=== PATIENT | female | born 1950 | race Caucasian/White ===

== ENCOUNTER 2019-06-06 20:47 | Inpatient (IN) | payer MEDICARE, SELFPAY ==
[2019-06-06] VITALS (7 sets, daily range): BP systolic 115–127; BP diastolic 66–72; PULSE 90–109; RESP 22–31; TEMP 36.7; O2SAT 93–100
--- NOTE | ~2019-06-06 | CT_ITS ---
EXAMINATION: CT chest wo con DATE: 06/07/2019 14:15 INDICATION: Hypoxemia, shortness of breath, cough TECHNIQUE: Computed tomography (CT) of the chest was performed without intravenous contrast. The dose -length product (DLP) was 145.72 mGy-cm. Automated exposure control and iterative reconstruction tech nique were employed. COMPARISON: None FINDINGS: There is moderate emphysema. There are mild airspace opacities of the lower lobes, left upp er lobe, and right middle lobe. There are trace pleural effusions. No pneumothorax is identified. Terence cified pulmonary nodules and calcified right hilar lymph nodes are consistent with old granulomatous disease. The heart size is normal. Spleen measuring IMPRESSION: 1. Mild multifocal pneumonia. 2. Moderate emphysema. Reviewed, dictated and finalized at location B.
--- NOTE | ~2019-06-06 | XR_ITS ---
EXAMINATION: XR chest 2V DATE: 06/06/2019 21:50 INDICATION: Shortness of breath TECHNIQUE: frontal and lateral views of the chest were obtained. COMPARISON: Chest radiograph dated 03/07/2008 FINDINGS: Hyperexpansion of lungs with increased lucency in the upper lung zones and some architectural distort ion on the right consistent with emphysema. Mild bronchial wall thickening in the lower lung zones co nsistent with bronchitis. Mild opacities at the posterior sulci consistent with dependent atelectasis versus pneumonia. Densely calcified nodules in the right upper lobe and calcified mediastinal lymph nodes consistent with old granulomatous disease. Heart size is normal. IMPRESSION: 1. Emphysema. 2. bronchial wall thickening and/or lung zones consistent with bronchitis. 3. Mild opacities at the posterior sulci on the lateral projection most likely atelectasis although p neumonia not excludable. Reviewed, dictated and finalized at location A. IMPRESSION: 1. Emphysema. 2. bronchial wall thickening and/or lung zones consistent with bronchitis. 3. Mild opacities at the posterior sulci on the lateral projection most likely atelectasis although pneumonia not excludable.
--- NOTE | 2019-06-06 20:52 | ED.SOB ---
HPI - SOB/Dyspnea General Chief Complaint: Shortness of Breath/Dyspnea Stated Complaint: SOB/ DIARRHEA Time Seen by Provider: 06/06/19 20:48 Source: patient and RN notes reviewed Mode of arrival: EMS Limitations: no limitations History of Present Illness HPI Narrative: Pt is a 68 y/o female presenting to the ED c/o SOB. Pt reports she was prescribed Azithromycin last Friday and Prednisone last due to being diagnosed with COPD. Pt states she was experiencing SOB and cough, noting her Sx's improved last Friday and Friday but worsened this morning. Pt states she was satting 88% at her home earlier today which changed to 90% after taking an Albuterol Nebulizer. Pt also reports diarrhea, but denies fever. Pt states she has been taking Mucinex. Pt denies any known positive sick contact. Pt denies any other medical Hx's including cardiac problems. Pertinent past history: COPD Onset (ago): unknown Associated symptoms: cough and other (Diarrhea) Related Data Allergies Allergy/AdvReac Type Severity Reaction Status Date / Time No Known Allergies Allergy Unverified 11/22/15 18:49 Review of Systems Review of Systems: All systems reviewed & are unremarkable except as noted in HPI and below Constitutional: Constitutional: Denies fever(s) Respiratory: Respiratory: Reports cough and Reports dyspnea Gastrointestinal: Gastrointestinal: Reports diarrhea PMFSH Past Medical History Medical History COPD (chronic obstructive pulmonary disease) Skin cancer Surgical History Surgical History No significant past surgical history Family History Family History Father Family history of blood dyscrasia Family history of malignant neoplasm, Onset Age: 63 Patient's father is Sibling Asthma Patient's sister is in good health Family history of attention deficit hyperactivity disorder (ADHD) Family history of malignant neoplasm of breast in first degree relative Mother Family history of emphysema, Onset Age: 72 Patient's mother is Social History Social History Alcohol intake: current Exam Const: General: no acute distress Nutritional Appearance: well nourished Other: Frail; Elderly HENMT: Mouth: Yes lip normal and Yes dry mucous membranes Eyes: Conjunctivae: conjunctivae normal Resp: Effort & Inspection: normal respiratory effort Auscultation: wheezes and diminished lung sounds Cardio: Rate: regular rate Rhythm: regular rhythm Back/Spine/Pelvis: Other: Full ROM Skin: General skin exam: normal color Other: Warm; Dry Neuro: General: patient oriented x3 Speech: normal speech Extrem: General: full ROM Psych: Mental Status: mental status grossly normal Affect: normal affect Course Vital Signs Vital signs: Vital Signs Temperature 36.7 C 06/06/19 20:51 Pulse Rate 90 06/06/19 20:51 Respiratory Rate 27 H 06/06/19 20:51 Blood Pressure 115/66 06/06/19 20:51 Pulse Oximetry 95 06/06/19 20:51 Temperature 36.7 C 06/06/19 20:51 Pulse Rate 109 H 06/06/19 22:16 Respiratory Rate 26 H 06/06/19 22:16 Blood Pressure 127/72 06/06/19 22:16 Pulse Oximetry 93 06/06/19 22:16 MDM - SOB/Dyspnea MDM Narrative Medical decision making narrative: She has a new supplemental oxygen requirement and only minimal improvement with nebulizer treatment. She will need admission for scheduled nebs and IV steroids. No infiltrate on x-ray. WBC elevation likely due to corticosteroids will hold off on antibiotics for now. Differential Diagnosis Differential diagnosis: Likely acute exacerbation of chronic obstructive airways disease, community acquired pneumonia and other (influenza, acute on chronic respiratory failure) Medical Records Attestation: I reviewed the patient's medical records
--- NOTE | 2019-06-06 20:59 | ECG_ITS ---
Measurements Intervals [place] Rate: 89 P: 81 [place]: 128 QRS: 93 QRSD: 105 T: 84 QT: 387 QTc: 473 Interpretive Statements SINUS RHYTHM VENTRICULAR PREMATURE COMPLEX RIGHT AXIS DEVIATION BASELINE ARTIFACT- I, II, III, AVR, AVL, AVF, V1-V6 BORDERLINE ECG Electronically Signed On 06-07-2019 7:17:10 CDT by Floyd Allen D.O.
[2019-06-06 21:17] LABS: Basophils Percent Auto 0.2 % (0.2-1.2); Hematocrit 37.1 % (37.0-47.0); Hemoglobin 12.5 g/dL (12.0-15.0); Immature Granulocyte Absolute 0.05 K/mm3 (0.00-0.031); Immature Granulocyte Percent A 0.3 % (0-0.5); Lymphocytes Absolute Auto 1.12 K/mm3 (0.9-3.2); Lymphocytes Percent Auto 7.1 % (18.3-44.2); Mean Corpuscular HGB Conc 33.7 g/dl (32-36); Mean Corpuscular Hemoglobin 32.9 pg (26-34); Mean Corpuscular Volume 97.6 fl (80-100); Mean Platelet Volume 10.4 fl (7.4-10.4); Monocytes Absolute Auto 0.8 K/mm3 (0.1-0.6); Monocytes Percent Auto 5.1 % (2.6-8.5); Neutrophils Absolute Auto 13.7 K/mm3 (1.3-6.7); Neutrophils Percent Auto 87.3 % (45.5-73.1); Platelet Count Result 212 k/mm3 (150-375); Red Cell Distribution Width 12.7 % (11.5-14.5); White Blood Count 15.7 K/mm3 (4.5-10.0)
[2019-06-06 21:19] LABS: Alveolar/Arterial O2 Gradient 132.1 mmHg; Base Excess ABG 1.1 mEq/l (+/-2.0); Fractional Inspired Oxygen 36 %; HCO3 ABG 25.6 mEq/l (22.0-26.0); Methemoglobin ABG 0.2 %THb (0-1.5); Oxygen Content ABG 16.8 %vol (16.0-22.0); Oxygen Saturation ABG 95.7 % (95.0-100.0); Oxyhemoglobin 93.3 % THb (90.0-100.0); PCO2 ABG 40.5 mmHg (35.0-45.0); PO2 ABG 77.6 mmHg (80.0-100.0); PO2 FiO2 Ratio Arterial Blood 2.16 %; Reduced Hemoglobin 4.5 %THb (0-5.0); Total Hemoglobin 12.8 g/dL (12.0-18.0); pH ABG 7.419 (7.350-7.450)
[2019-06-06 21:20] LABS: Device NASAL CANNULA; Modified Allen's Test Pass; Site Drawn RIGHT RADIAL
[2019-06-06] MEDS: ALBUTEROL SULFATE NEB 2.5 MG/0.5 ML INH 10 MG INHALATION (21:23)
[2019-06-06] MEDS: IPRATROPIUM BR 0.02% INH SOLN 0.5 MG/2.5 ML VIAL 1 MG INHALATION (21:23)
[2019-06-06 21:27] LABS: Blood Urea Nitrogen 10 mg/dL (7-17); Calcium 8.8 mg/dL (8.4-10.2); Carbon Dioxide 30 mmol/L (22-30); Chloride 91 mmol/L (98-107); Estimated CRCL calculation 86 ml/min; Estimated Glomerular Filt Rate > 60; Glucose 116 mg/dL (65-105); Potassium 3.8 mmol/L (3.4-5.0); Sodium 125 mmol/L (137-145)
[2019-06-06] MEDS: SODIUM CHLORIDE 0.9% IV 1,000 ML 999 ML IV CONT (22:12)
[2019-06-06] MEDS: methylPREDNISolone SOD SUCC 125 MG VIAL IV PUSH (22:14)
--- NOTE | 2019-06-06 22:35 | PC.NURSE ---
Patient resting in stretcher with son at bedside. Pt remains on 4L O2 NC. Pt provided with additional warm blankets and water, denies other needs at this time. Call light within reach, IV fluids infusing.
--- NOTE | 2019-06-06 23:39 | PC.NURSE ---
Patient remains resting in stretcher in NAD with son at bedside, aware of impending admission.
[2019-06-07] VITALS (16 sets, daily range): BP systolic 95–115; BP diastolic 46–80; PULSE 69–93; RESP 12–20; TEMP 36.5–37.1; O2SAT 93–99
[2019-06-07] MEDS: LACTATED RINGERS 1,000 ML 75 ML IV CONT (00:15)
--- NOTE | 2019-06-07 00:16 | ADMGEN ---
This patient, Melissa Longoria, was admitted to Medical Room 347-. Patient/family oriented to hospital policies and general routines including ID bracelet, bed and alarms, visiting hours, pain management, procedures, bathroom and other care routines, personal items, smoking policy, room service/diet, and visiting hours. Valuables list has been completed. Information on how to activate the Rapid Response Team has been discussed. Patient/Family are encouraged to report perceived risks to care and to ask questions if they do not understand what they are told or what they should do.
[2019-06-07] MEDS: IPRATROPIUM BR 0.02% INH SOLN 0.5 MG/2.5 ML VIAL INHALATION ×4 (01:37→20:15)
[2019-06-07] MEDS: ALBUTEROL SULFATE NEB 2.5 MG/0.5 ML INH 5 MG INHALATION ×4 (01:37→20:15)
--- NOTE | 2019-06-07 04:40 | PM.IMHP ---
H&P: HPI History of Present Illness Chief complaint: Shortness of breath and cough Narrative: Date and time of patient contact: 06/07/2019 at 5:30 a.m. Melissa Longoria is a 68 year old female with a past medical history of COPD with continued tobacco use who presented to the ER via EMS with shortness of breath and cough for 3 days. EMS reported the patient's oxygen saturations were 81% on room air when they arrived to the scene. When she arrived to the ER she was satting 91% on 4 L nasal cannula. She does not usually use oxygen at home. The patient reports that she started to feel ill on Friday. She called her primary care physician on and received prescriptions for azithromycin and oral steroids. She had also started taking Mucinex twice a day. She was using her home nebulizer treatments and she felt that she was turning the corner in that her symptoms were getting better on Friday. However when she got up on Friday she was more short of breath. She was having oxygen saturations of 88% at rest. If she stood up her oxygen saturations were dropping to 73%. She did call her primary care physician who stated that she could be seen in the office on Friday. But the patient new she could not make it to the office or even walk to her front door so she called EMS. She reports that her cough has been dry until she received nebulizer treatments in the ER. After she received nebulizer treatments in the ER she started coughing up yellow phlegm. She reported that over the last several days when she would cough for oxygen saturations would drop. But if she would take some deep breaths her oxygen saturations would recover. She states that her oxygen saturations have been variable over the last several months. She has been getting oxygen saturations down in the upper 80s. She does not have a local facility service associate. Even though she has lived locally for many years. She does continue to smoke a half pack of cigarettes per day but she states that she has decreased her smoking over the last 6 months down from a pack of cigarettes per day. She denies any fevers or chills. She has not been having any body aches, fatigue, nausea, or vomiting. She has been having some loose stools since she was started on the azithromycin. She has been trying to drink plenty of fluids to keep her mucus thin but when she started having diarrhea she was unable to keep up with her fluids. She denies any chest pain or history of cardiac disorder. She has had several pound weight loss recently but attributes this to the significant social stressors she has had over the last 6 months. Of note the patient has been under multiple social stressors over the last 6 months or so. Her long-term boyfriend of 10 years who had dementia had a significant decline and she broke off the relationship in August placed in a facility. Her sister recently of emphysema in the middle of April. She had travel to [place] to visit her sister while she was on hospice. She returned May 04. She has been staying at home and has not had any contacts in the community. Review of Systems Review of Systems: Narrative: 12 systems were reviewed with pertinent positives and negatives per HPI. Except as documented in the HPI, all other systems were reviewed and are negative. [facility] Past Medical History Medical History (Updated 06/07/19 @ 05:01 by Alaina Thomason DO) COPD (chronic obstructive pulmonary disease) Depression GERD (gastroesophageal reflux disease) Skin cancer Status post excision from the nose requiring plastic surgery, also removed from the arms and back Thyroid nodule Surgical History Surgical History (Updated 06/07/19 @ 05:21 by Alaina Thomason DO) History of bilateral cataract extraction 2007 History of breast biopsy With benign pathology History of rhinoplasty Status post hysteroscopic polypectomy Family History Family History (Updated 06/07/19 @ 06:46 b
[2019-06-07] MEDS: methylPREDNISolone SOD SUCC 125 MG VIAL 60 MG IV PUSH ×2 (06:24→17:26)
[2019-06-07] MEDS: ENOXAPARIN 40 MG/0.4 ML SYRINGE SUB-Q (08:42)
--- NOTE | 2019-06-07 09:18 | PM.IMPN ---
Progress Note: A&P Assessment and Plan (1) Acute respiratory failure with hypoxia: Code(s): J96.01 - Acute respiratory failure with hypoxia Status: Acute Assessment and Plan: Most likely due to COPD exacerbation. CXR showed emphysema, bronchitis, and atelectasis vs pneumonia Little wheezing this morning to anterior chest She is not on 2L via NC with O2 between 90-91%. She is feeling better at this time. The patients daughter is worried about COVID-19 since the patient traveled from [place] 05/04/2019 and her symptoms started 2 weeks after traveling. The patient has been checking her temperature three times a day and has never recorded any fevers and she has been afebrile while here in the hospital. She had a dry cough, but it is becoming more productive with duoneb treatments with yellow phlegm. She is short of breath, but it is getting better with IV steroids and duoneb treatments at this time. Will order CT Chest to see if there is any underlying pneumonia or other abnormality. Continue monitoring respiratory status, wean O2 as tolerated. (2) Acute exacerbation of chronic obstructive airways disease: Code(s): J44.1 - Chronic obstructive pulmonary disease with (acute) exacerbation Status: Acute Assessment and Plan: Continue nebulizers and steroids. Oxygenation is improving able to wean from 4L to 2L and tolerating it well. Not much wheezing to her lungs at this time but she had just finished a breathing treatment. Will continue IV Solu-medrol, scheduled nebulizer treatments, home Symbicort and will wean oxygen as tolerated. (3) Tobacco abuse disorder: Code(s): Z72.0 - Tobacco use Status: Acute Assessment and Plan: Informed the patient that she needs to quit smoking. She reports she does plan to quit smoking after discharge and she does not want a nicotine patch at this time. Smoking cessation given for 3 minutes. (4) Depression: Code(s): F32.9 - Major depressive disorder, single episode, unspecified Status: Acute Assessment and Plan: Will continue her bupropion twice a day. Time Spent With Patient Time with patient: 25 - 35 minutes Subjective Date/time seen: 06/07/19 09:18 Interval history: Date of service 06/07/2019: The patient reports feeling better after receiving some IV fluids, IV steroids and breathing treatments in the ER. She is still requiring 2 L of oxygen with a saturation between 90 and 91%. She still feels like she is wheezing and having some chest tightness from her wheezing. She still has a decreased appetite because yesterday she had some loose stools after eating a piece of toast and lei. She denies any fever, chills, chest pain, nausea, vomiting, abdominal pain, constipation, leg swelling, calf pain, or any other symptoms at this time. Review of Systems Review of Systems: All systems reviewed & are unremarkable except as noted in HPI and below Exam Narrative: Exam Narrative: General: 68-year-old woman laying flat in bed with head elevated at 30 degrees. Appears comfortable, resting on 2L via NC with O2 between 90-91%. In no acute distress. Skin: No jaundice or cyanosis. Good skin turgor. Neck: Full range of motion. Supple. Respiratory: Decreased breath sounds throughout lung drake, slight wheezing noted to right anterior chest. No crackles or rhonchi noted. No bony chest wall tenderness. Cardiovascular: The heart has a regular rate and rhythm without murmur. Lower extremities: No lower extremity edema. Distal pulses are easily palpated. No calf tenderness to palpation. Gastrointestinal: The abdomen is soft, nontender and nondistended with active bowel sounds. Psychiatric: Lucid and oriented. Memory intact. Neurologi
[2019-06-07 10:30] LABS: Basophils Percent Auto 0.1 % (0.2-1.2); Hematocrit 33.3 % (37.0-47.0); Hemoglobin 11.4 g/dL (12.0-15.0); Immature Granulocyte Absolute 0.08 K/mm3 (0.00-0.031); Immature Granulocyte Percent A 0.5 % (0-0.5); Lymphocytes Absolute Auto 0.56 K/mm3 (0.9-3.2); Lymphocytes Percent Auto 3.5 % (18.3-44.2); Mean Corpuscular HGB Conc 34.2 g/dl (32-36); Mean Corpuscular Hemoglobin 33.3 pg (26-34); Mean Corpuscular Volume 97.4 fl (80-100); Mean Platelet Volume 10.3 fl (7.4-10.4); Monocytes Absolute Auto 0.4 K/mm3 (0.1-0.6); Monocytes Percent Auto 2.4 % (2.6-8.5); Neutrophils Percent Auto 93.5 % (45.5-73.1); Platelet Count Result 183 k/mm3 (150-375); Red Blood Count 3.42 M/mm3 (4.2-5.4); Red Cell Distribution Width 12.8 % (11.5-14.5); White Blood Count 16.1 K/mm3 (4.5-10.0)
[2019-06-07 10:48] LABS: Blood Urea Nitrogen 4 mg/dL (7-17); Calcium 8.3 mg/dL (8.4-10.2); Carbon Dioxide 30 mmol/L (22-30); Chloride 95 mmol/L (98-107); Estimated CRCL calculation 86 ml/min; Estimated Glomerular Filt Rate > 60; Glucose 138 mg/dL (65-105); Potassium 3.7 mmol/L (3.4-5.0); Sodium 126 mmol/L (137-145)
[2019-06-07] MEDS: LACTATED RINGERS 1,000 ML 50 ML IV CONT (13:59)
[2019-06-07 15:10] LABS: Magnesium 1.9 mg/dL (1.6-2.3)
[2019-06-07] MEDS: SACCHAROMYCES BOULARDII 250 MG CAPSULE PO (17:27)
[2019-06-08] VITALS (12 sets, daily range): BP systolic 112–123; BP diastolic 43–72; PULSE 69–83; RESP 14–20; TEMP 36.1–36.7; O2SAT 92–98
[2019-06-08] MEDS: ALBUTEROL SULFATE NEB 2.5 MG/0.5 ML INH 5 MG INHALATION ×4 (01:43→19:19)
[2019-06-08] MEDS: IPRATROPIUM BR 0.02% INH SOLN 0.5 MG/2.5 ML VIAL INHALATION ×4 (01:43→19:20)
[2019-06-08] MEDS: methylPREDNISolone SOD SUCC 125 MG VIAL 60 MG IV PUSH ×2 (05:04→18:29)
[2019-06-08 05:30] LABS: Basophils Percent Auto 0.1 % (0.2-1.2); Hematocrit 28.9 % (37.0-47.0); Hemoglobin 9.8 g/dL (12.0-15.0); Immature Granulocyte Absolute 0.05 K/mm3 (0.00-0.031); Immature Granulocyte Percent A 0.5 % (0-0.5); Lymphocytes Percent Auto 13.9 % (18.3-44.2); Mean Corpuscular HGB Conc 33.9 g/dl (32-36); Mean Corpuscular Hemoglobin 32.8 pg (26-34); Mean Corpuscular Volume 96.7 fl (80-100); Mean Platelet Volume 10.3 fl (7.4-10.4); Monocytes Absolute Auto 0.7 K/mm3 (0.1-0.6); Monocytes Percent Auto 6.2 % (2.6-8.5); Neutrophils Absolute Auto 8.5 K/mm3 (1.3-6.7); Neutrophils Percent Auto 79.3 % (45.5-73.1); Platelet Count Result 169 k/mm3 (150-375); Red Blood Count 2.99 M/mm3 (4.2-5.4); Red Cell Distribution Width 12.7 % (11.5-14.5); White Blood Count 10.8 K/mm3 (4.5-10.0)
[2019-06-08 05:43] LABS: Blood Urea Nitrogen 8 mg/dL (7-17); Calcium 8.1 mg/dL (8.4-10.2); Carbon Dioxide 31 mmol/L (22-30); Chloride 91 mmol/L (98-107); Estimated CRCL calculation 86 ml/min; Estimated Glomerular Filt Rate > 60; Glucose 115 mg/dL (65-105); Potassium 3.5 mmol/L (3.4-5.0); Sodium 123 mmol/L (137-145)
[2019-06-08] MEDS: SACCHAROMYCES BOULARDII 250 MG CAPSULE PO ×2 (08:21→18:29)
[2019-06-08] MEDS: ENOXAPARIN 40 MG/0.4 ML SYRINGE SUB-Q (08:21)
[2019-06-08] MEDS: POTASSIUM CHLORIDE 20 MEQ PACKET (FOR LIQUID) 40 MEQ PO (08:22)
--- NOTE | 2019-06-08 15:00 | PM.IMPN ---
Progress Note: A&P Assessment and Plan (1) Acute respiratory failure with hypoxia: Code(s): J96.01 - Acute respiratory failure with hypoxia Status: Acute Assessment and Plan: Most likely due to COPD exacerbation also possible pnuemonia component as well. CT chest showed mild multifocal pneumonia. Scattered rhonci on exam; no wheezig noted today. She is weaned to 1L via NC She is feeling better at this time. Continue neb treatments, taper steroids, wean O2 as tolerated. Mucinex. Levaquin for PNA treatment Continue monitoring respiratory status (2) Acute exacerbation of chronic obstructive airways disease: Code(s): J44.1 - Chronic obstructive pulmonary disease with (acute) exacerbation Status: Acute Assessment and Plan: Patient clinically improving today, seemingly. Continue nebulizers and steroids. Oxygenation is improving able to wean from 2L to 1L and tolerating it well. Will taper IV Solu-medrol at Q24 hour starting tomorrow scheduled nebulizer treatments home Symbicort wean oxygen as tolerated. (3) Tobacco abuse disorder: Code(s): Z72.0 - Tobacco use Status: Acute Assessment and Plan: Discussed smoking cessation again today for 4 minutes. She reports she does plan to quit smoking after discharge and she does not want a nicotine patch at this time. (4) Depression: Code(s): F32.9 - Major depressive disorder, single episode, unspecified Status: Acute Assessment and Plan: No acute issues at this moment Will continue her bupropion twice a day. (5) Multifocal pneumonia: Code(s): J18.9 - Pneumonia, unspecified organism Status: Acute Assessment and Plan: Found on CT imaging of chest yesterday; started on Levaquin Continue levaquin for now Consider 5-7 days treatment total Monitor for improvement Subjective Date/time seen: 06/08/19 15:00 Interval history: Patient is a 68 yo F with history of COPD and continued tobacco use who is here for treatment for COPD exacerbation and mild multifocal pneumonia found on CT of the chest. Patient states she is overall improving today. Still desatting when walking around her bed, but otherwise she is feeling okay. She is coughing up green phlegm today, more so than yesterday. She denies any subjective fevers/chills/sweats. She has noted some weakness today, but declined be seeing by PT/OT when asked if she would like them consulted. She has no other complaints for me today. Denies f/c/s, myalgias/arthralgias, headaches, dizziness, lightheadedness, changes in v/h, cp/palpitations, n/v/d/c, abd pain, changes in BMs, dysuria, hematuria, cloudy urine, calf pain/swelling. Review of Systems Review of Systems: All systems reviewed & are unremarkable except as noted in HPI and below Exam Narrative: Exam Narrative: Patient sitting upright on side of bed at time of visit. Const: General: cooperative, comfortable, no acute distress, well developed and alert Nutritional Appearance: well nourished Orientation/consciousness: patient oriented x3 HENMT: Head: normocephalic and atraumatic Ears: external ears normal General nose exam: Normal nares present (NC noted) Face and sinus: face symmetric Mouth: Yes tongue normal Teeth and gingiva: dentition normal Throat: posterior oropharynx normal and uvula midline Eyes: General: appearance normal, both eyes and all related structures Sclera: sclerae normal Pupils: Equal, round and reactive pupils present EOM: EOMs intact bilaterally Neck: Neck: trachea midline and supple Resp: Effort & Inspection: normal respiratory effort Auscultation: rhonchi (scattered) and diminished lung sounds Cardio: Rate: regular rate Rhyth
[2019-06-09] VITALS (12 sets, daily range): BP systolic 113; BP diastolic 45; PULSE 64–99; RESP 15–20; TEMP 36.3; O2SAT 87–95
[2019-06-09] MEDS: ALBUTEROL SULFATE NEB 2.5 MG/0.5 ML INH 5 MG INHALATION ×3 (01:23→12:59)
[2019-06-09] MEDS: IPRATROPIUM BR 0.02% INH SOLN 0.5 MG/2.5 ML VIAL INHALATION ×3 (01:23→12:59)
[2019-06-09 06:05] LABS: Hematocrit 29.3 % (37.0-47.0); Hemoglobin 10.1 g/dL (12.0-15.0); Immature Granulocyte Absolute 0.06 K/mm3 (0.00-0.031); Immature Granulocyte Percent A 0.8 % (0-0.5); Lymphocytes Absolute Auto 1.21 K/mm3 (0.9-3.2); Lymphocytes Percent Auto 15.7 % (18.3-44.2); Mean Corpuscular HGB Conc 34.5 g/dl (32-36); Mean Corpuscular Hemoglobin 33.1 pg (26-34); Mean Corpuscular Volume 96.1 fl (80-100); Mean Platelet Volume 10.5 fl (7.4-10.4); Monocytes Absolute Auto 0.5 K/mm3 (0.1-0.6); Neutrophils Absolute Auto 5.9 K/mm3 (1.3-6.7); Neutrophils Percent Auto 76.5 % (45.5-73.1); Platelet Count Result 199 k/mm3 (150-375); Red Blood Count 3.05 M/mm3 (4.2-5.4); Red Cell Distribution Width 12.3 % (11.5-14.5); White Blood Count 7.7 K/mm3 (4.5-10.0)
[2019-06-09 06:18] LABS: Blood Urea Nitrogen 8 mg/dL (7-17); Calcium 8.3 mg/dL (8.4-10.2); Carbon Dioxide 31 mmol/L (22-30); Chloride 92 mmol/L (98-107); Estimated CRCL calculation 86 ml/min; Estimated Glomerular Filt Rate > 60; Glucose 124 mg/dL (65-105); Magnesium 2.1 mg/dL (1.6-2.3); Potassium 3.9 mmol/L (3.4-5.0); Sodium 124 mmol/L (137-145)
[2019-06-09] MEDS: SACCHAROMYCES BOULARDII 250 MG CAPSULE PO (08:19)
[2019-06-09] MEDS: ENOXAPARIN 40 MG/0.4 ML SYRINGE SUB-Q (08:20)
[2019-06-09] MEDS: methylPREDNISolone SOD SUCC 125 MG VIAL 60 MG IV PUSH (08:21)
--- NOTE | 2019-06-09 12:02 | HOMEO2EVAL ---
Home Oxygen Evaluation RC: Home Oxygen (O2) Evaluation Start: 06/09/19 10:14 Freq: ONCE Status: Active Protocol: RPE Activity Type Activity Date Activity User E-Sign Co-Sign Detail Recorded Client Recorded Date Recorded By Document 06/09/19 11:30 [email or web address] [email or web address] 06/09/19 12:02 DJO Document 06/09/19 11:35 [email or web address] [email or web address] 06/09/19 12:02 DJO Document 06/09/19 11:40 [email or web address] [email or web address] 06/09/19 12:02 DJO Document 06/09/19 11:55 [email or web address] [email or web address] 06/09/19 12:02 DJO 06/09/19 06/09/19 06/09/19 11:30 11:35 11:40 Home O2 Evaluation Test Phase Resting Exercise Exercise Oxygen Delivery Room Air Room Air Nasal Cannula Oxygen Flow Rate (L/min) 1 Pulse Oximetry (90-100 %) 92 87 L 90 Pulse Rate (60-100 beats/min) 88 99 98 Activity Tolerance Good Excellent Ambulation Distance (feet) 1,000 Treatment Charges O2 Evaluation 06/09/19 11:55 Home O2 Evaluation Test Phase Resting Oxygen Delivery Room Air Oxygen Flow Rate (L/min) Pulse Oximetry (90-100 %) 91 Pulse Rate (60-100 beats/min) 86 Activity Tolerance Ambulation Distance (feet) Treatment Charges
--- NOTE | 2019-06-09 12:38 | PM.DS ---
DS: Diagnosis Admitting Diagnosis Admitting Diagnosis: Acute respiratory failure with hypoxia Discharge Diagnosis (1) Acute respiratory failure with hypoxia: Code(s): J96.01 - Acute respiratory failure with hypoxia Status: Acute Assessment and Plan: Most likely due to COPD exacerbation also possible pnuemonia component, as well; CT chest showed mild multifocal pneumonia. Scattered rhonci on exam again today, but overall improvement; no wheezing noted again today. She is weaned to RA at rest. Overall, patient tells me this has been her best day yet. Obtained a Home O2 eval and recommended RA at rest and 1L with activity. Will set this up prior to discharge Continue neb treatments at home, taper steroids with prednisone, wean O2 as tolerated, Mucinex, Levaquin for PNA treatment for 2 more days after discharge (5 days total) Follow up with PCP Recommended establishing with a local Astronomy Instructor for further care (2) Acute exacerbation of chronic obstructive airways disease: Code(s): J44.1 - Chronic obstructive pulmonary disease with (acute) exacerbation Status: Acute Assessment and Plan: Patient clinically improving again today. Continue nebulizers at home and prednisone taper starting tomorrow Oxygenation is improving; she is now on RA at rest home Symbicort, neb treatments, mucinex, PEP therapy, prednisone taper wean oxygen as instructed by RT (3) Tobacco abuse disorder: Code(s): Z72.0 - Tobacco use Status: Acute Assessment and Plan: She reports she does plan to quit smoking after discharge; this was strongly encouraged. Discussed progression of COPD disease with continued smoking. Smoking cessation essential for her health (4) Depression: Code(s): F32.9 - Major depressive disorder, single episode, unspecified Status: Acute Assessment and Plan: No acute issues at this moment Will continue her bupropion twice a day. (5) Multifocal pneumonia: Code(s): J18.9 - Pneumonia, unspecified organism Status: Acute Assessment and Plan: Found on CT imaging of chest yesterday; started on Levaquin thereafter Continue levaquin for now Will do 5 days total treatment Monitor for improvement (6) Hyponatremia: Code(s): E87.1 - Hypo-osmolality and hyponatremia Status: Acute Assessment and Plan: Na 124; stable. Possibly secondary to Bupropion. Will have her follow up with PCP as an outpatient Follow up with BMP in 1 week DS: Summary Hospital Course Reason for hospitalization: COPD exacerbation; multifocal pneumonia; ARF with hypoxia Hospital Course: Patient is a 68 yo F with history of COPD with continued tobacco use who presented to the ER via EMS on 06/05 with shortness of breath and cough for 3 days. The patient's saturations were 81% while on RA when EMS arrived on seen; upon arrival to ER, patients was satting 91% on 4L O2 NC. Patient does not normal wear O2 at home. Patient started to feel ill on 05/31; she was subsequently prescribed azithromycin and oral steroids by her PCP; she also took Mucinex BID and her home nebulizer treatments. She was showing some improvement, but then on 06/05 her sats were 88% at rest and dropped to 73% upon standing. She was told to come into her PCP's office the following day, however, she felt like she would not make it to then and summoned the EMS. Please see H&P for further details. Presenting VS: Temp Pulse Resp BP Pulse Ox 98.0 F 90 27 H 115/66 95 06/06/19 20:51 06/06/19 20:51 06/06/19 20:51 06/06/19 20:51 06/06/19 20:51 4L O2 NC Presenting Pertinent labs: WBC 15.7, Na 125, Cl 91. ABG showed pO2 77.6. CBC, BMP, ABG other
--- NOTE | 2019-06-09 13:00 | ECG_ITS ---
Measurements Intervals [place] Rate: 77 P: 79 [place]: 123 QRS: 90 QRSD: 110 T: 84 QT: 407 QTc: 463 Interpretive Statements SINUS RHYTHM MINIMAL Q WAVES- INF/LAT LEADS BASELINE ARTIFACT- V6 BORDERLINE ECG Electronically Signed On 06-09-2019 9:30:23 CDT by Floyd Allen D.O.
== END 2019-06-09 15:30 | disposition home or self-care (01) | DRG 194 ==
LOC: ANHED 22:47 → ANH3MED 22:55
PROVIDERS: Physician Assistant; Admitting Provider Internal Medicine; Emergency Provider Emergency Medicine; PCP Family Medicine; Visit Provider Physician Assistant
DX: J18.9 Pneumonia, unspecified organism (principal); E87.1 Hypo-osmolality and hyponatremia; J43.9 Emphysema, unspecified; F17.210 Nicotine dependence, cigarettes, uncomplicated; Z63.4 Disappearance and death of family member; Z63.79 Other stressful life events affecting family and household; K21.9 Gastro-esophageal reflux disease without esophagitis; Z85.828 Personal history of other malignant neoplasm of skin; Z98.41 Cataract extraction status, right eye; Z98.42 Cataract extraction status, left eye; F32.9 Major depressive disorder, single episode, unspecified; D72.829 Elevated white blood cell count, unspecified; T38.0X5A Adverse effect of glucocorticoids and synthetic analogues, initial encounter
CPT/HCPCS: 36415; 36600; 71046; 71250; 80048; 82375; 82805; 83050; 83735; 85025; 87040; 87070; 87205; 87804; 93005; 94618; 94640; 94667; 94668; 96361; 96372; 96374; 96376; 99285; A9270; G0378; J1650; J1956; J2930; J7030; J7120

== ENCOUNTER 2020-05-22 14:03 | Emergency (ER) | payer MEDICARE, SELFPAY ==
[2020-05-22 14:22] VITALS: BP 108/71; PULSE 98; RESP 18; TEMP 36.9; O2SAT 96
[2020-05-22 14:55] LABS: Add Urine Microscopic? YES; Appearance Urine Clear (Clear); Bilirubin Urine Negative (Negative); Blood Urine Negative (Negative); Color Urine Yellow (Yellow); Glucose Urine UA Negative (Negative); Ketones Urine Negative (Negative); Leukocyte Esterase Ur 3+ LEU/UL (Negative); Mucus Urine Rare /lpf; Nitrate Urine Negative (Negative); Protein Urine Negative (Negative); Specific Grav Ur 1.014 (1.001-1.035); Squamous Epithelial Cell Urine Occasional /hpf (Few); Transitional Epi Cells Urine Rare /hpf (None Seen); WBC Urine 21-30 /hpf
--- NOTE | 2020-05-22 15:30 | ED.GENADULT ---
HPI - General Adult General Chief complaint: Urogenital-Female Stated complaint: urinary retention Time Seen by Provider: 05/22/20 15:15 Source: patient History of Present Illness HPI narrative: Patient is a 69 y/o female complaining of difficulty with urination. She states that she had several episodes of UTI recently. She was given Macrobid 2 days for presumed UTI. She states that she has not had any urination since 6:00 AM this morning. Related Data Home Medications Medication Instructions Recorded Confirmed albuterol sulfate [ProAir HFA] 1 puff INHALATION Q4-6H 06/07/19 06/07/19 budesonide-formoterol [Symbicort] 2 puff INHALATION Q12H 06/07/19 06/07/19 bupropion HCl 150 mg PO BID 06/07/19 06/07/19 Allergies Allergy/AdvReac Type Severity Reaction Status Date / Time No Known Allergies Allergy Unverified 11/22/15 18:49 Review of Systems Constitutional: Constitutional: Denies chills, Denies fever(s), Denies headache(s) and Denies weakness Eyes: Eyes: Denies blurry vision ENT: Denies headache(s) and Denies neck pain Cardiovascular: Cardiovascular: Denies chest pain and Denies dyspnea Respiratory: Respiratory: Denies cough and Denies dyspnea Gastrointestinal: Gastrointestinal: Denies abdominal pain, Denies diarrhea, Denies nausea and Denies vomiting Genitourinary: Genitourinary: Denies hematuria, Reports urinary frequency and Reports dysuria Musculoskeletal: Musculoskeletal: Denies back pain and Denies neck pain Neurologic: Denies headache(s) and Denies weakness [facility] Past Medical History Medical History COPD (chronic obstructive pulmonary disease) Depression GERD (gastroesophageal reflux disease) Skin cancer Status post excision from the nose requiring plastic surgery, also removed from the arms and back Thyroid nodule Surgical History Surgical History History of bilateral cataract extraction 2007 History of breast biopsy With benign pathology History of rhinoplasty Status post hysteroscopic polypectomy Family History Family History Father Polycythemia vera Leukemia Sibling Breast cancer ADHD Emphysema of lung Mother Emphysema of lung Social History Social History Social History: Primary care physician: Dr. Jamia Yan Code status: Full code. She would like her 2 older children to be surrogate decision maker. Smoking packs per day: 1 Smoking cigarettes per day: 20.0 Years smoked: 56 Smoking pack-years: 56.00 Smoking status: Current some day smoker Tobacco type: cigarettes Second hand tobacco smoke exposure: Yes Alcohol intake: current Drinks per week: 0 Substance use: former Substance use type: does not use, former substance user and marijuana Additional living arrangements comments: She lives alone. She recently left the 10 year relationship. She has 3 adult children. Her daughter lives in [place] her 2 sons live locally. She would want her daughter and her older son to be her surrogate decision makers in case of an emergency. Gender identity (if verbalized by the patient): Female Spiritual care concerns: No Agree to blood products: Yes Exam Const: General: no acute distress and well developed Orientation/consciousness: oriented to person, oriented to place, oriented to time and patient oriented x3 HENMT: Head: normocephalic Ears: external ears normal General nose exam: Normal external nose present Eyes: General: appearance normal, both eyes and all related structures Conjunctivae: conjunctivae normal Neck: Neck: normal visual inspection and full ROM Chest: Chest palpation & inspection: normal inspection of the chest and no tenderness Resp: Effort & Inspection: normal respir
[2020-05-22 15:31] LABS: Basophils Absolute Auto 0.1 K/mm3 (0.0-0.1); Basophils Percent Auto 0.7 % (0.2-1.2); Eosinophils Absolute Auto 0.2 K/mm3 (0-0.3); Hematocrit 41.2 % (37.0-47.0); Hemoglobin 13.3 g/dL (12.0-15.0); Immature Granulocyte Absolute 0.02 K/mm3 (0.00-0.031); Immature Granulocyte Percent A 0.2 % (0-0.5); Lymphocytes Absolute Auto 1.74 K/mm3 (0.9-3.2); Lymphocytes Percent Auto 19.1 % (18.3-44.2); Mean Corpuscular HGB Conc 32.3 g/dl (32-36); Mean Corpuscular Hemoglobin 33.3 pg (26-34); Mean Platelet Volume 9.6 fl (7.4-10.4); Monocytes Absolute Auto 0.5 K/mm3 (0.1-0.6); Monocytes Percent Auto 5.9 % (2.6-8.5); Neutrophils Absolute Auto 6.6 K/mm3 (1.3-6.7); Neutrophils Percent Auto 72.1 % (45.5-73.1); Platelet Count Result 280 k/mm3 (150-375); Red Cell Distribution Width 13.1 % (11.5-14.5); White Blood Count 9.1 K/mm3 (4.5-10.0)
[2020-05-22 15:55] LABS: Glucose 101 mg/dL (65-105)
[2020-05-22 16:41] VITALS: BP 120/52; PULSE 74; RESP 20; TEMP 36.4; O2SAT 100
[2020-05-22 16:45] LABS: Anion Gap 6 mmol/L (8-16); Blood Urea Nitrogen 14 mg/dL (7-17); Calcium 9.3 mg/dL (8.4-10.2); Carbon Dioxide 29 mmol/L (22-30); Chloride 98 mmol/L (98-107); Estimated CRCL calculation 70 ml/min; Estimated Glomerular Filt Rate > 60; Potassium 4.3 mmol/L (3.4-5.0); Sodium 133 mmol/L (137-145)
[2020-05-22 17:46] VITALS: BP 104/51; PULSE 85; RESP 16; O2SAT 96
== END 2020-05-22 17:50 | disposition home or self-care (01) ==
PROVIDERS: Emergency Medicine; Emergency Provider Emergency Medicine; PCP Family Medicine
DX: N39.0 Urinary tract infection, site not specified (principal); J44.9 Chronic obstructive pulmonary disease, unspecified; K21.9 Gastro-esophageal reflux disease without esophagitis; Z85.828 Personal history of other malignant neoplasm of skin; Z98.42 Cataract extraction status, left eye; Z98.41 Cataract extraction status, right eye; F32.9 Major depressive disorder, single episode, unspecified; F17.210 Nicotine dependence, cigarettes, uncomplicated
CPT/HCPCS: 36415; 80048; 81001; 85025; 87086; 99283

== ENCOUNTER 2020-09-20 07:32 | Observation (INO) | payer MEDICARE, SELFPAY ==
[2020-09-20] VITALS (40 sets, daily range): BP systolic 101–121; BP diastolic 48–85; PULSE 79–109; RESP 12–27; TEMP 36.2–36.7; O2SAT 89–100; BMI 19.9
--- NOTE | ~2020-09-20 | XR_ITS ---
EXAMINATION: XR chest 2V DATE: 09/20/2020 08:54 INDICATION: Shortness of breath. TECHNIQUE: Frontal and lateral views of the chest were obtained. COMPARISON: Chest 2 views 06/06/2019, chest CT 06/07/2019 FINDINGS: The lungs are hyperexpanded, consistent with emphysema. Calcified right lung nodules and ca lcified right hilar and mediastinal lymph nodes are consistent with old granulomatous disease. No ple ural effusion or pneumothorax. The heart size is normal. IMPRESSION: 1. Emphysema. Reviewed, dictated and finalized at location A. IMPRESSION: 1. Emphysema.
[2020-09-20] MEDS: ALBUTEROL SULFATE NEB 2.5 MG/0.5 ML INH 5 MG INHALATION ×2 (08:17→21:08)
[2020-09-20] MEDS: IPRATROPIUM BR 0.02% INH SOLN 0.5 MG/2.5 ML VIAL INHALATION ×2 (08:17→21:09)
--- NOTE | 2020-09-20 08:19 | PC.NURSE ---
Respiratory at bedside.
[2020-09-20 08:23] LABS: Basophils Absolute Auto 0.1 K/mm3 (0.0-0.1); Basophils Percent Auto 0.8 % (0.2-1.2); Eosinophils Absolute Auto 0.1 K/mm3 (0-0.3); Eosinophils Percent Auto 2.2 % (0-4.4); Hemoglobin 12.6 g/dL (12.0-15.0); Immature Granulocyte Absolute 0.01 K/mm3 (0.00-0.031); Immature Granulocyte Percent A 0.2 % (0-0.5); Lymphocytes Absolute Auto 1.12 K/mm3 (0.9-3.2); Lymphocytes Percent Auto 17.5 % (18.3-44.2); Mean Corpuscular HGB Conc 32.3 g/dl (32-36); Mean Corpuscular Hemoglobin 32.4 pg (26-34); Mean Corpuscular Volume 100.3 fl (80-100); Mean Platelet Volume 9.5 fl (7.4-10.4); Monocytes Absolute Auto 0.6 K/mm3 (0.1-0.6); Monocytes Percent Auto 9.7 % (2.6-8.5); Neutrophils Absolute Auto 4.5 K/mm3 (1.3-6.7); Neutrophils Percent Auto 69.6 % (45.5-73.1); Platelet Count Result 222 k/mm3 (150-375); Red Blood Count 3.89 M/mm3 (4.2-5.4); Red Cell Distribution Width 12.7 % (11.5-14.5); White Blood Count 6.4 K/mm3 (4.5-10.0)
[2020-09-20 08:32] LABS: Anion Gap 5 mmol/L (8-16); Blood Urea Nitrogen 12 mg/dL (7-17); Calcium 9.1 mg/dL (8.4-10.2); Carbon Dioxide 28 mmol/L (22-30); Chloride 99 mmol/L (98-107); Estimated CRCL calculation 70 ml/min; Estimated Glomerular Filt Rate > 60; Glucose 101 mg/dL (65-105); Potassium 4.2 mmol/L (3.4-5.0); Sodium 132 mmol/L (137-145)
--- NOTE | 2020-09-20 08:52 | ED.GENADULT ---
HPI - General Adult General Chief complaint: Upper Respiratory Infection Stated complaint: difficulty breathing, low 02 at home Time Seen by Provider: 09/20/20 07:38 History of Present Illness HPI narrative: Patient is a 69-year-old female who presents ER with shortness of breath. Reports she woke up this morning and was wheezing and her oxygen sat was 72% at home. She gave her self nebulizer treatment and took 6 tabs of methylprednisolone 4 mg. Patient had been prescribed a Z-Bjorn and a Medrol Dosepak yesterday by her PCP because she been having increased frequency of wheezing and cough with yellow sputum. No chest pain or chest pressure. No documented fevers or chills. Related Data Home Medications Medication Instructions Recorded Confirmed albuterol sulfate [ProAir HFA] 1 puff INHALATION Q4-6H PRN 06/07/19 09/20/20 budesonide-formoterol [Symbicort] 2 puff INHALATION Q12H 06/07/19 09/20/20 bupropion HCl 150 mg PO BID 06/07/19 09/20/20 azithromycin 250 mg PO DAILY 09/20/20 09/20/20 coenzyme Q10 [Co Q-10] 200 mg PO DAILY 09/20/20 09/20/20 Allergies Allergy/AdvReac Type Severity Reaction Status Date / Time ciprofloxacin [From Cipro] AdvReac Nausea Verified 09/20/20 13:49 Review of Systems Review of Systems: All systems reviewed & are unremarkable except as noted in HPI and below Constitutional: Constitutional: Denies chills, Denies fever(s) and Denies weakness ENT: Denies nasal congestion and Denies sore throat Cardiovascular: Cardiovascular: Denies chest pain, Denies rapid heart rate and Denies radiating jaw, neck or arm pain Respiratory: Respiratory: Reports cough, Reports dyspnea and Reports wheezing Gastrointestinal: Gastrointestinal: Denies abdominal pain, Denies nausea and Denies vomiting [facility] Past Medical History Medical History COPD (chronic obstructive pulmonary disease) Depression GERD (gastroesophageal reflux disease) Skin cancer Status post excision from the nose requiring plastic surgery, also removed from the arms and back Thyroid nodule Surgical History Surgical History History of bilateral cataract extraction 2007 History of breast biopsy With benign pathology History of rhinoplasty Status post hysteroscopic polypectomy Family History Family History Father Polycythemia vera Leukemia Sibling Breast cancer ADHD Emphysema of lung Mother Emphysema of lung Social History Social History Social History: Primary care physician: Dr. Jamia Yan Code status: Full code. She would like her 2 older children to be surrogate decision maker. Smoking packs per day: 0.50 Smoking cigarettes per day: 10.0 Years smoked: 58 Smoking pack-years: 29.00 Smoking status: Current every day smoker Tobacco type: cigarettes Second hand tobacco smoke exposure: Yes Alcohol intake: never Drinks per week: 0 Substance use: never Substance use type: does not use, former substance user and marijuana Additional living arrangements comments: She lives alone. She recently left the 10 year relationship. She has 3 adult children. Her daughter lives in [place] her 2 sons live locally. She would want her daughter and her older son to be her surrogate decision makers in case of an emergency. Gender identity (if verbalized by the patient): Female Spiritual care concerns: No Agree to blood products: Yes Exam Narrative: Exam Narrative: GENERAL: Well-appearing, well-nourished, and in no acute distress. HEAD: Normocephalic, atraumatic. CHEST: Scattered wheezing worse left base. No respiratory distress. HEART: Regular rate and rhythm. Normal peripheral pulses. ABDOMEN: Soft, nontender, nondistended. EXTREMITIES: Normal range
--- NOTE | 2020-09-20 11:07 | PC.NURSE ---
Report to stuart presley at this time, he has assumed pt care, vss, pt a&ox4, pink, warm and dry, denies pain.
--- NOTE | 2020-09-20 11:16 | PC.NURSE ---
Patient ambulated with pulse oximeter on, O2 ranged from 88%-89%.
--- NOTE | 2020-09-20 13:10 | PM.IMHP ---
H&P: HPI History of Present Illness Date/Time: 09/20/20 13:10 Chief Complaint: shortness of breath Narrative: 69-year-old female with past history of COPD and history of current active nicotine abuse who was admitted last year in May 2019 with pneumonia presented with shortness of breath for the past 1 day. Patient reportedly had upper respiratory symptoms of rhinorrhea and watering of the eyes for the past 2 days and this morning woke up with difficulty in breathing. She has been coughing and producing yellow-colored phlegm and on checking saturations at home was noted to be 77% on room air. She was reportedly discharged on 1 L of home oxygen last year however had not been requiring any since then. With the current symptoms she contacted her PCP and was prescribed azithromycin and Solu-Medrol Dosepak. She did take azithromycin however was not able to take her Solu-Medrol and woke up this morning to take 4 mg tablets x6 totaling up to 24 mg for today. She denies any fever chills chest pain nausea vomiting pedal edema no orthopnea or PND. She she denies any alcohol use and is mentioning that she has cut down on her smoking significantly. She has been vaccinated with RegeneRx vaccine 2nd was received mid May this year. Review of Systems Review of Systems: Narrative: a 10 point review of systems was conducted and pertinent positives are mentioned as per HPI. [facility] Past Medical History Medical History COPD (chronic obstructive pulmonary disease) Depression GERD (gastroesophageal reflux disease) Skin cancer Status post excision from the nose requiring plastic surgery, also removed from the arms and back Thyroid nodule Surgical History Surgical History History of bilateral cataract extraction 2007 History of breast biopsy With benign pathology History of rhinoplasty Status post hysteroscopic polypectomy Family History Family History Father Polycythemia vera Leukemia Sibling Breast cancer ADHD Emphysema of lung Mother Emphysema of lung Social History Social History Social History: Primary care physician: Dr. Jamia Yan Code status: Full code. She would like her 2 older children to be surrogate decision maker. Smoking packs per day: 1 Smoking cigarettes per day: 20.0 Years smoked: 56 Smoking pack-years: 56.00 Smoking status: Current some day smoker Tobacco type: cigarettes Second hand tobacco smoke exposure: Yes Alcohol intake: current Drinks per week: 0 Substance use: former Substance use type: does not use, former substance user and marijuana Additional living arrangements comments: She lives alone. She recently left the 10 year relationship. She has 3 adult children. Her daughter lives in [place] her 2 sons live locally. She would want her daughter and her older son to be her surrogate decision makers in case of an emergency. Gender identity (if verbalized by the patient): Female Spiritual care concerns: No Agree to blood products: Yes Meds Home Medications and Allergies Home Medications Medication Instructions Recorded Confirmed Type albuterol sulfate [ProAir HFA] 1 puff INHALATION Q4-6H 06/07/19 06/07/19 History budesonide-formoterol [Symbicort] 2 puff INHALATION Q12H 06/07/19 06/07/19 History bupropion HCl 150 mg PO BID 06/07/19 06/07/19 History Saccharomyces boulardii [Florastor] 250 mg PO BID #10 cap 06/09/19 Rx guaifenesin [Mucus Relief ER] 600 mg PO Q12HR #30 tablet 06/09/19 Rx prednisone 10 mg PO DAILY #30 tablet 06/09/19 Rx azithromycin 09/20/20 History Allergies Allergy/AdvReac Type Severity Reaction Status Date / Time No Known Allergies Allergy Unverified 11/22/15 18:49 Vital Si
--- NOTE | 2020-09-20 13:32 | ADMGEN ---
This patient, Melissa Longoria, was admitted to 3 [facility] Surg Room 313-01 @ 1325. Patient/family oriented to hospital policies and general routines including ID bracelet, bed and alarms, visiting hours, pain management, procedures, bathroom and other care routines, personal items, smoking policy, room service/diet, and visiting hours. Information on how to activate the Rapid Response Team has been discussed. Patient/Family are encouraged to report perceived risks to care and to ask questions if they do not understand what they are told or what they should do.
[2020-09-20 14:17] LABS: Basophils Percent Auto 0.1 % (0.2-1.2); Hematocrit 38.4 % (37.0-47.0); Hemoglobin 12.8 g/dL (12.0-15.0); Immature Granulocyte Absolute 0.02 K/mm3 (0.00-0.031); Immature Granulocyte Percent A 0.3 % (0-0.5); Lymphocytes Absolute Auto 0.72 K/mm3 (0.9-3.2); Lymphocytes Percent Auto 10.5 % (18.3-44.2); Mean Corpuscular HGB Conc 33.3 g/dl (32-36); Mean Corpuscular Hemoglobin 32.7 pg (26-34); Mean Platelet Volume 9.8 fl (7.4-10.4); Monocytes Absolute Auto 0.1 K/mm3 (0.1-0.6); Monocytes Percent Auto 1.7 % (2.6-8.5); Neutrophils Percent Auto 87.4 % (45.5-73.1); Platelet Count Result 244 k/mm3 (150-375); Red Blood Count 3.92 M/mm3 (4.2-5.4); Red Cell Distribution Width 12.7 % (11.5-14.5); White Blood Count 6.9 K/mm3 (4.5-10.0)
[2020-09-20] MEDS: methylPREDNISolone SOD SUCC 40 MG VIAL IV PUSH ×2 (15:18→20:27)
[2020-09-20] MEDS: guaiFENesin 200 MG/10 ML UDC PO ×2 (15:33→20:41)
[2020-09-20] MEDS: FLUTICASONE PROPIONATE 0.05% NA SPR 16 GM BTL (*BKC) 1 SPRAY NASAL (20:27)
[2020-09-21] VITALS (15 sets, daily range): BP systolic 106–113; BP diastolic 48–50; PULSE 67–114; RESP 17–18; TEMP 36.2–37; O2SAT 85–100
[2020-09-21] MEDS: ALBUTEROL SULFATE NEB 2.5 MG/0.5 ML INH 5 MG INHALATION ×4 (02:33→19:40)
[2020-09-21] MEDS: IPRATROPIUM BR 0.02% INH SOLN 0.5 MG/2.5 ML VIAL INHALATION ×4 (02:33→19:40)
[2020-09-21] MEDS: methylPREDNISolone SOD SUCC 40 MG VIAL IV PUSH ×3 (06:32→21:24)
[2020-09-21 06:38] LABS: Alanine Aminotransferase 30 U/L (4-35); Albumin Level 3.7 g/dL (3.5-5.1); Alkaline Phosphatase 49 U/L (38-126); Anion Gap 8 mmol/L (8-16); Aspartate Amino Transferase 30 U/L (14-36); Bilirubin,Total 0.2 mg/dL (0.2-1.3); Blood Urea Nitrogen 10 mg/dL (7-17); Carbon Dioxide 28 mmol/L (22-30); Chloride 95 mmol/L (98-107); Estimated CRCL calculation 84 ml/min; Estimated Glomerular Filt Rate > 60; Glucose 115 mg/dL (65-105); Potassium 4.1 mmol/L (3.4-5.0); Sodium 131 mmol/L (137-145)
[2020-09-21] MEDS: FLUTICASONE PROPIONATE 0.05% NA SPR 16 GM BTL (*BKC) 1 SPRAY NASAL ×2 (08:33→21:25)
[2020-09-21] MEDS: PANTOPRAZOLE 40 MG TABLET PO (08:33)
[2020-09-21 08:43] LABS: Basophils Percent Auto 0.1 % (0.2-1.2); Immature Granulocyte Absolute 0.04 K/mm3 (0.00-0.031); Immature Granulocyte Percent A 0.4 % (0-0.5); Lymphocytes Absolute Auto 1.31 K/mm3 (0.9-3.2); Mean Corpuscular HGB Conc 32.4 g/dl (32-36); Mean Corpuscular Hemoglobin 32.7 pg (26-34); Mean Corpuscular Volume 100.8 fl (80-100); Mean Platelet Volume 10.4 fl (7.4-10.4); Monocytes Absolute Auto 0.7 K/mm3 (0.1-0.6); Monocytes Percent Auto 6.5 % (2.6-8.5); Neutrophils Absolute Auto 8.9 K/mm3 (1.3-6.7); Platelet Count Result 216 k/mm3 (150-375); Red Blood Count 3.67 M/mm3 (4.2-5.4); Red Cell Distribution Width 12.4 % (11.5-14.5)
--- NOTE | 2020-09-21 09:45 | HOMEO2EVAL ---
Evaluation was performed at [facility] Home Oxygen Evaluation RC: Home Oxygen (O2) Evaluation Start: 09/21/20 08:26 Freq: ONCE Status: Active Protocol: RPE Activity Type Activity Date Activity User E-Sign Co-Sign Detail Recorded Client Recorded Date Recorded By Document 09/21/20 09:15 [email or web address] [email or web address] 09/21/20 09:44 FREDY Document 09/21/20 09:18 FREDY [email or web address] 09/21/20 09:44 FREDY Document 09/21/20 09:20 FREDY [email or web address] 09/21/20 09:44 FREDY Document 09/21/20 09:23 FREDY [email or web address] 09/21/20 09:44 FREDY Document 09/21/20 09:30 FREDY [email or web address] 09/21/20 09:44 FREDY 09/21/20 09/21/20 09/21/20 09:15 09:18 09:20 Home O2 Evaluation Test Phase Resting Exercise Exercise Oxygen Delivery Room Air Room Air Nasal Cannula Oxygen Flow Rate (L/min) 1 Pulse Oximetry (90-100 %) 92 85 L 87 L Pulse Rate (60-100 beats/min) 114 H Home Oxygen Evaluation Comments Treatment Charges O2 Evaluation - Inpatient 09/21/20 09/21/20 09:23 09:30 Home O2 Evaluation Test Phase Exercise Resting Oxygen Delivery Nasal Cannula Room Air Oxygen Flow Rate (L/min) 2 Pulse Oximetry (90-100 %) 93 94 Pulse Rate (60-100 beats/min) Home Oxygen Evaluation Comments Pt requires 2 L with activity Treatment Charges
--- NOTE | 2020-09-21 10:18 | PCRCNOTE ---
PT REQUIRES 2 L WITH EXERTION. WILL ARRANGE WITH [facility] UPON D/C
[2020-09-21] MEDS: buPROPion HCL SR (12 HR) 150 MG TAB PO ×2 (11:33→21:24)
[2020-09-21] MEDS: guaiFENesin 200 MG/10 ML UDC PO ×2 (11:36→22:58)
--- NOTE | 2020-09-21 18:03 | PM.IMPN ---
Progress Note: A&P Assessment and Plan (1) COPD exacerbation: Code(s): J44.1 - Chronic obstructive pulmonary disease with (acute) exacerbation Status: Acute Assessment and Plan: patient started on Solu-Medrol 40 mg Q 8 hours Scheduled breathing treatments Will start patient on hypertonic saline nebulizations Cough medications in place (2) Leukocytosis, unspecified: Qualifiers: Leukocytosis type: unspecified Qualified Code(s): D72.829 - Elevated white blood cell count, unspecified Code(s): D72.829 - Elevated white blood cell count, unspecified Status: Acute Assessment and Plan: Secondary to steroid use Continue to monitor (3) Hyponatremia: Code(s): E87.1 - Hypo-osmolality and hyponatremia Status: Acute Assessment and Plan: stable (4) Tobacco abuse disorder: Code(s): Z72.0 - Tobacco use Status: Acute Assessment and Plan: patient currently on Wellbutrin Has significantly cut down on smoking however continues to remain a current active smoker (5) Acute respiratory failure with hypoxia: Code(s): J96.01 - Acute respiratory failure with hypoxia Status: Acute Assessment and Plan: currently on on 2 L of oxygen at rest Will get another home oxygen screen Discussed the patient the possible need for home oxygen Possible discharge tomorrow Subjective Date/time seen: 09/21/20 18:03 Interval history: continues to shortness of and desaturates to late 70s on ambulation Discussed the patient regarding the need for home O2 Patient is complaining of chest congestion and is requesting medication Review of Systems Review of Systems: Narrative: a 10 point review of system was conducted which was otherwise negative Exam Const: General: cooperative HENMT: Head: normal to inspection Eyes: General: appearance normal, both eyes and all related structures Chest: Chest palpation & inspection: normal inspection of the chest Resp: Effort & Inspection: normal respiratory effort, able to speak in complete sentences and Actively coughing Auscultation: wheezes (improved from before) Cardio: Jugular venous distension: no JVD Palpation: normal PMI Rate: regular rate Rhythm: regular rhythm and abnormal rhythm Heart sounds: S1 normal heart sound present GI: Inspection: normal to inspection GI Palp: Yes Soft to palpation and Yes No hepatosplenomegaly present Percussion: Yes normal to percussion Auscultation: normal bowel sounds Back/Spine/Pelvis: Back: no CVA tenderness Skin: General skin exam: normal color Neuro: General: patient oriented x3, gait normal and tone normal Extrem: General: normal to inspection, full ROM and capillary refill normal Psych: Appearance: grossly normal Objective Data Vital Signs Vital Signs: Vital Signs - 24 hr 09/20/20 21:10 09/20/20 21:21 09/20/20 22:00 Temperature 97.6 F Pulse Rate 94 93 79 Respiratory Rate 20 18 17 Blood Pressure 111/48 L Pulse Oximetry 91 09/21/20 02:34 09/21/20 02:43 09/21/20 05:43 Temperature 98.6 F Pulse Rate 92 96 75 Respiratory Rate 18 18 17 Blood Pressure 106/48 L Pulse Oximetry 90 09/21/20 07:18 09/21/20 09:15 09/21/20 09:18 Temperature Pulse Rate 85 114 H Respiratory Rate 18 Blood Pressure Pulse Oximetry 92 85 L 09/21/20 09:20 09/21/20 09:23 09/21/20 09:30 Temperature Pulse Rate Respiratory Rate Blood Pressure Pulse Oximetry 87 L 93 94 09/21/20 13:12 09/21/20 13:24 Temperature 97.5 F L Pulse Rate 84 89 Respiratory Rate 18 18 Blood Pressure 112/49 L Pulse Oximetry 100 Intake/Output Intake/Output: Intake & Output 09/18/20 09/19/20 09/20/20 09/21/20 23:59 23:59 23:59 23:59 Intake Total 1330 1980 Output Total 500 1600 Balance 830 380 Meds/Results Medications: Active Medications Generic Name Dose Route Start Last Admin Trade Name Freq PRN Reason Stop D
[2020-09-22] VITALS (13 sets, daily range): BP systolic 112–130; BP diastolic 49–51; PULSE 74–110; RESP 18–20; TEMP 35.9–36.7; O2SAT 87–96
[2020-09-22] MEDS: guaiFENesin 200 MG/10 ML UDC PO (06:10)
[2020-09-22] MEDS: methylPREDNISolone SOD SUCC 40 MG VIAL IV PUSH ×2 (06:10→13:37)
[2020-09-22 06:28] LABS: Hematocrit 38.1 % (37.0-47.0); Hemoglobin 12.3 g/dL (12.0-15.0); Mean Corpuscular HGB Conc 32.3 g/dl (32-36); Mean Corpuscular Hemoglobin 32.2 pg (26-34); Mean Corpuscular Volume 99.7 fl (80-100); Platelet Count Result 243 k/mm3 (150-375); Red Blood Count 3.82 M/mm3 (4.2-5.4); Red Cell Distribution Width 12.5 % (11.5-14.5); White Blood Count 16.1 K/mm3 (4.5-10.0)
[2020-09-22 06:43] LABS: Alanine Aminotransferase 30 U/L (4-35); Albumin Level 3.9 g/dL (3.5-5.1); Alkaline Phosphatase 52 U/L (38-126); Anion Gap 7 mmol/L (8-16); Aspartate Amino Transferase 29 U/L (14-36); Bilirubin,Total 0.2 mg/dL (0.2-1.3); Blood Urea Nitrogen 10 mg/dL (7-17); Carbon Dioxide 28 mmol/L (22-30); Chloride 94 mmol/L (98-107); Estimated CRCL calculation 84 ml/min; Estimated Glomerular Filt Rate > 60; Glucose 128 mg/dL (65-105); Potassium 4.3 mmol/L (3.4-5.0); Sodium 129 mmol/L (137-145)
[2020-09-22] MEDS: FLUTICASONE PROPIONATE 0.05% NA SPR 16 GM BTL (*BKC) 1 SPRAY NASAL (08:27)
[2020-09-22] MEDS: buPROPion HCL SR (12 HR) 150 MG TAB PO (08:27)
[2020-09-22] MEDS: PANTOPRAZOLE 40 MG TABLET PO (08:27)
[2020-09-22] MEDS: ALBUTEROL SULFATE NEB 2.5 MG/0.5 ML INH 5 MG INHALATION ×2 (09:26→14:08)
[2020-09-22] MEDS: IPRATROPIUM BR 0.02% INH SOLN 0.5 MG/2.5 ML VIAL INHALATION ×2 (09:26→14:09)
--- NOTE | 2020-09-22 11:06 | PM.DS ---
DS: Admitting Diagnosis Admitting Diagnosis Admitting Diagnosis: acute hypoxic respiratory failure DS: Discharge Diagnosis Discharge Diagnosis (1) Acute respiratory failure with hypoxia: Code(s): J96.01 - Acute respiratory failure with hypoxia Status: Resolved (2) Leukocytosis, unspecified: Qualifiers: Leukocytosis type: unspecified Qualified Code(s): D72.829 - Elevated white blood cell count, unspecified Code(s): D72.829 - Elevated white blood cell count, unspecified Status: Acute (3) COPD exacerbation: Code(s): J44.1 - Chronic obstructive pulmonary disease with (acute) exacerbation Status: Resolved (4) Hyponatremia: Code(s): E87.1 - Hypo-osmolality and hyponatremia Status: Acute DS: Summary Hospital Course Reason for hospitalization: acute hypoxic respiratory failure Hospital Course: 69-year-old female history of COPD current active nicotine abuse presented with shortness of breath was managed as a case of COPD exacerbation and acute hypoxic respiratory failure. During her stay she received IV azithromycin and IV Solu-Medrol 40 mg q.6 hours. She was also started on scheduled nebulizations with albuterol and ipratropium, in addition hypertonic saline nebs are also added as the patient continued to complain of chest congestion. She also to symptomatic treatment for nonproductive cough and chest congestion. She continued to improve however given her prolonged smoking history and her long history of COPD she is qualified for home oxygen and is now being discharged on home oxygen and stable condition with Medrol Dosepak and Z-Bjorn for 5 days. Time Spent with Patient Time attestation: Total time spent providing and/or coordinating discharge services:>30 minutes Exam Const: General: cooperative HENMT: Head: normal to inspection Face and sinus: normal facial exam Mouth: Yes Normal oral and palatal mucosa present Eyes: General: appearance normal, both eyes and all related structures Neck: Neck: normal visual inspection, full ROM, no lymphadenopathy and supple Resp: Effort & Inspection: normal respiratory effort Auscultation: wheezes (improved from prior exam) Percussion: percussion normal Cardio: Jugular venous distension: no JVD Palpation: normal PMI Rate: regular rate Rhythm: regular rhythm Heart sounds: S1 normal heart sound present and S2 normal heart sound present GI: Inspection: normal to inspection GI Palp: Yes Soft to palpation and Yes No hepatosplenomegaly present Percussion: Yes normal to percussion Back/Spine/Pelvis: Back: no CVA tenderness Skin: General skin exam: normal color Neuro: General: patient oriented x3 and gait normal Psych: Appearance: grossly normal DS: Data Data Completed and Pending Labs on day of discharge: Labs from last 24 hours 09/22/20 09/22/20 05:53 05:53 WBC 16.1 H RBC 3.82 L Hgb 12.3 Hct 38.1 MCV 99.7 MCH 32.2 MCHC 32.3 RDW 12.5 Plt Count 243 MPV 10.0 Sodium 129 L Potassium 4.3 Chloride 94 L Carbon Dioxide 28 Anion Gap 7 L BUN 10 Creatinine 0.40 L Estim Creat Clear Calc 84 Estimated GFR > 60 Glucose 128 H Calcium 9.0 Total Bilirubin 0.2 AST 29 ALT 30 Alkaline Phosphatase 52 Total Protein 6.0 L Albumin 3.9 Discharge Plan Discharge Attending physician on discharge: Becca Mota Discharging Clinician: Becca Mota Patient Disposition: Home, Self-Care Activity: as tolerated Diet: heart healthy Patient Instructions: Antibiotic Form, How to Stop Smoking (DC), COPD (Chronic Obstructive Pulmonary Disease) (GEN), Pulse Oximetry (GEN) Stand Alone Forms: General Discharge Information Follow-up/Referrals: Yuriy,Jamia Cota MD [Primary Care Provider] - Becca Mota MD [Physician] - Discharge Medications: New fluticasone propionate 50 mcg/actuation [place]ons,Suspension 1 spray intranasal Q12HR
--- NOTE | 2020-09-22 11:32 | HOMEO2EVAL ---
Evaluation was performed at [facility] Home Oxygen Evaluation RC: Home Oxygen (O2) Evaluation Start: 09/22/20 11:07 Freq: ONCE Status: Active Protocol: RPE Activity Type Activity Date Activity User E-Sign Co-Sign Detail Recorded Client Recorded Date Recorded By Document 09/22/20 11:00 [email or web address] [email or web address] 09/22/20 11:32 DJO Document 09/22/20 11:05 [email or web address] [email or web address] 09/22/20 11:32 DJO Document 09/22/20 11:07 [email or web address] [email or web address] 09/22/20 11:32 DJO Document 09/22/20 11:15 [email or web address] [email or web address] 09/22/20 11:32 DJO 09/22/20 09/22/20 09/22/20 11:00 11:05 11:07 Home O2 Evaluation Test Phase Resting Exercise Exercise Oxygen Delivery Room Air Room Air Nasal Cannula Oxygen Flow Rate (L/min) 1 Pulse Oximetry (90-100 %) 93 87 L 89 L Pulse Rate (60-100 beats/min) 87 110 H Home Oxygen Evaluation Comments PT REQUIRES 1 L WITH ACTIVITY Treatment Charges O2 Evaluation - Inpatient 09/22/20 11:15 Home O2 Evaluation Test Phase Resting Oxygen Delivery Room Air Oxygen Flow Rate (L/min) Pulse Oximetry (90-100 %) 94 Pulse Rate (60-100 beats/min) 90 Home Oxygen Evaluation Comments Treatment Charges
--- NOTE | 2020-09-22 11:40 | PCRCNOTE ---
HOME O2 EVAL REPEATED. PT NOW REQUIRES 1 L WITH WITH ACTIVITY INSTEAD OF 2L. NO O2 NEEDED AT REST. NEW ORDER AND EVAL FAXED TO [facility]
== END 2020-09-22 15:50 | disposition home or self-care (01) ==
LOC: ANHED 07:56 → ANH3MEDSUR 12:50
PROVIDERS: Admitting Provider Internal Medicine; Emergency Provider Emergency Medicine; PCP Family Medicine; Visit Provider Internal Medicine
DX: J96.01 Acute respiratory failure with hypoxia (principal); J44.1 Chronic obstructive pulmonary disease with (acute) exacerbation; J44.0 Chronic obstructive pulmonary disease with (acute) lower respiratory infection; F17.290 Nicotine dependence, other tobacco product, uncomplicated; F17.210 Nicotine dependence, cigarettes, uncomplicated; E87.1 Hypo-osmolality and hyponatremia; D72.829 Elevated white blood cell count, unspecified; Z85.828 Personal history of other malignant neoplasm of skin
CPT/HCPCS: 36415; 71046; 80048; 80053; 85025; 85027; 94618; 94640; 94667; 96365; 96375; 96376; 99285; A9270; G0378; J0456; J1644; J2920

== ENCOUNTER 2020-11-01 09:15 | Emergency (ER) | payer MEDICARE, SELFPAY ==
[2020-11-01] VITALS (8 sets, daily range): BP systolic 119–136; BP diastolic 58–91; PULSE 74–93; RESP 18–27; TEMP 36.9; O2SAT 95–100
--- NOTE | ~2020-11-01 | XR_ITS ---
XR chest 1V portable 11/01/2020 10:41 Indication: Shortness of breath, congestion. COPD. Procedure: AP portable chest Comparison: 09/20/2020 Findings: Heart size is normal. No focal air space disease, pulmonary edema, pleural effusion or susp ected pneumothorax. There are calcified granulomas of the lung. The lungs are hyperinflated which is consistent with, but not diagnostic of chronic obstructive pulmonary disease. Impression: 1: No acute cardiopulmonary disease. Reviewed, dictated and finalized at location A. Impression: 1: No acute cardiopulmonary disease.
--- NOTE | 2020-11-01 09:23 | ED.GENADULT ---
HPI - General Adult General Chief complaint: Shortness of Breath/Dyspnea <Catherine Murguia PA-C - Last Filed: 11/01/20 12:41> Stated complaint: sob <ROYCE Vick Last Filed: 11/01/20 12:41> Time Seen by Provider: 11/01/20 09:18 <Catherine Murguia PA-C - Last Filed: 11/01/20 12:41> Source: patient <ROYCE Vick Last Filed: 11/01/20 12:41> Mode of arrival: ambulatory <ROYCE Vick Last Filed: 11/01/20 12:41> Limitations: no limitations <ROYCE Vick Last Filed: 11/01/20 12:41> History of Present Illness HPI narrative: 70-year-old female with long history of COPD with frequent exacerbation. Here for shortness of breath, not responsive to treatment at home. She was just discharged from this facility on 09/22, at that time she was discharged with antibiotics, steroids and home oxygen at 2 L a minute.. She states that her primary care physician repeated those medications. She was doing well and was able to go to her job earlier this week when she began having increasing shortness of breath and this morning when she did her nebulizer treatment she had to stop because she felt that she could not breathe. She also states that her cough has been nonproductive. She also had sensation of spinning at that time. At this time she is able to speak in full sentences but is dyspneic. Her SpO2 is 100%. Covid vaccine was completed in May. <ROYCE Vick Last Filed: 11/01/20 12:41> Related Data Home medications: Home Medications Medication Instructions Recorded Confirmed albuterol sulfate [ProAir HFA] 1 puff INHALATION Q4-6H PRN 06/07/19 09/20/20 budesonide-formoterol [Symbicort] 2 puff INHALATION Q12H 06/07/19 09/20/20 bupropion HCl 150 mg PO BID 06/07/19 09/20/20 coenzyme Q10 [Co Q-10] 200 mg PO DAILY 09/20/20 09/20/20 <Catherine Murguia PA-C - Last Filed: 11/01/20 12:41> Allergies/adverse reactions: Allergies Allergy/AdvReac Type Severity Reaction Status Date / Time ciprofloxacin [From Cipro] AdvReac Nausea Verified 11/01/20 10:26 <Catherine Murguia PA-C - Last Filed: 11/01/20 12:41> Review of Systems Review of Systems: All systems reviewed & are unremarkable except as noted in HPI and below <Catherine Murguia PA-C - Last Filed: 11/01/20 12:41> [facility] Past Medical History Medical History: Medical History COPD (chronic obstructive pulmonary disease) Depression GERD (gastroesophageal reflux disease) Skin cancer Status post excision from the nose requiring plastic surgery, also removed from the arms and back Thyroid nodule <Catherine Murguia PA-C - Last Filed: 11/01/20 12:41> Surgical History Surgical History: Surgical History History of bilateral cataract extraction 2008 History of breast biopsy With benign pathology History of rhinoplasty Status post hysteroscopic polypectomy <Catherine Murguia PA-C - Last Filed: 11/01/20 12:41> Family History Family History: Family History Father Polycythemia vera Leukemia Sibling Breast cancer ADHD Emphysema of lung Mother Emphysema of lung <Catherine Murguia PA-C - Last Filed: 11/01/20 12:41> Social History Social History: Social History (Updated 11/01/20 @ 09:37 by Catherine Murguia PA-C) Social History: Primary care physician: Dr. Jamia Yan Code status: Full code. She would like her 2 older children to be surrogate decision maker. Smoking packs per day: 0.50 Smoking cigarettes per day: 10.0 Years smoked: 58 Smoking pack-years: 29.00 Smoking status: Former smoker Tobacco type: cigarettes Second hand tobacco smoke exposure: Yes Smoking end date: 10/25/20 Alcohol intake: never Drinks per week: 0 Substa
--- NOTE | 2020-11-01 09:33 | ECG_ITS ---
Measurements Intervals [place] Rate: 86 P: 81 NC: 126 QRS: 90 QRSD: 96 T: 80 QT: 337 QTc: 404 Interpretive Statements SINUS RHYTHM POSSIBLE LEFT ATRIAL ENLARGEMENT BASELINE WANDER- AVR, AVL, AVF, V4-V6 BORDERLINE ECG Electronically Signed On 11-01-2020 9:47:13 CDT by Floyd Allen D.O.
[2020-11-01] MEDS: methylPREDNISolone SOD SUCC 40 MG VIAL IV PUSH (09:48)
[2020-11-01 09:57] LABS: Basophils Absolute Auto 0.1 K/mm3 (0.0-0.1); Basophils Percent Auto 0.6 % (0.2-1.2); Eosinophils Absolute Auto 0.1 K/mm3 (0-0.3); Hemoglobin 13.3 g/dL (12.0-15.0); Immature Granulocyte Absolute 0.09 K/mm3 (0.00-0.031); Lymphocytes Percent Auto 20.2 % (18.3-44.2); Mean Corpuscular HGB Conc 32.4 g/dl (32-36); Mean Corpuscular Hemoglobin 32.8 pg (26-34); Mean Platelet Volume 9.9 fl (7.4-10.4); Monocytes Absolute Auto 0.9 K/mm3 (0.1-0.6); Monocytes Percent Auto 9.1 % (2.6-8.5); Neutrophils Absolute Auto 6.4 K/mm3 (1.3-6.7); Neutrophils Percent Auto 68.1 % (45.5-73.1); Platelet Count Result 341 k/mm3 (150-375); Red Blood Count 4.06 M/mm3 (4.2-5.4); White Blood Count 9.4 K/mm3 (4.5-10.0)
[2020-11-01 10:07] LABS: Alanine Aminotransferase 22 U/L (4-35); Albumin Level 4.5 g/dL (3.5-5.1); Alkaline Phosphatase 51 U/L (38-126); Anion Gap 6 mmol/L (8-16); Aspartate Amino Transferase 22 U/L (14-36); Bilirubin,Total 0.3 mg/dL (0.2-1.3); Blood Urea Nitrogen 11 mg/dL (7-17); Calcium 9.5 mg/dL (8.4-10.2); Carbon Dioxide 33 mmol/L (22-30); Chloride 93 mmol/L (98-107); Estimated CRCL calculation 59 ml/min; Estimated Glomerular Filt Rate > 60; Glucose 109 mg/dL (65-110); Potassium 3.8 mmol/L (3.4-5.0); Sodium 132 mmol/L (137-145)
[2020-11-01] MEDS: IPRATROPIUM BR 0.02% INH SOLN 0.5 MG/2.5 ML VIAL INHALATION (10:16)
[2020-11-01] MEDS: ALBUTEROL SULFATE NEB 2.5 MG/0.5 ML INH 5 MG INHALATION (10:16)
[2020-11-01 10:23] LABS: Alveolar/Arterial O2 Gradient 28.8 mmHg; Base Excess ABG 7.1 mEq/l (+/-2.0); Fractional Inspired Oxygen 28 %; HCO3 ABG 32.8 mEq/l (22.0-26.0); Oxygen Content ABG 18.7 %vol (16.0-22.0); Oxygen Saturation ABG 98.1 % (95.0-100.0); Oxyhemoglobin 97.1 % THb (90.0-100.0); PCO2 ABG 50.6 mmHg (35.0-45.0); PO2 ABG 111.1 mmHg (80.0-100.0); PO2 FiO2 Ratio Arterial Blood 3.97 %; Total Hemoglobin 13.6 g/dL (12.0-18.0); pH ABG 7.429 (7.350-7.450)
[2020-11-01 10:24] LABS: Device NASAL CANNULA; Modified Allen's Test Pass; Site Drawn LEFT RADIAL
[2020-11-01] MEDS: ALBUTEROL SULFATE NEB 2.5 MG/3 ML INH 5 MG INHALATION (11:32)
== END 2020-11-01 13:14 | disposition home or self-care (01) ==
PROVIDERS: Physician Assistant; Emergency Provider General Practice; PCP Family Medicine
DX: J44.1 Chronic obstructive pulmonary disease with (acute) exacerbation (principal); K21.9 Gastro-esophageal reflux disease without esophagitis; F32.9 Major depressive disorder, single episode, unspecified; Z85.828 Personal history of other malignant neoplasm of skin; Z98.42 Cataract extraction status, left eye; Z98.41 Cataract extraction status, right eye
CPT/HCPCS: 36415; 36600; 71045; 80053; 82805; 85025; 93005; 94640; 96374; 99284; J2920

== ENCOUNTER → 2020-11-28 10:46 | Outpatient (CLI) | payer MEDICARE, SELFPAY ==
--- NOTE | ~2020-11-28 | CT_ITS ---
EXAMINATION: CT lung screening DATE: 11/28/2020 11:05 INDICATION: Personal history of tobacco dependence, prior smoker with 85 pack year history TECHNIQUE: Computed tomography (CT) of the chest was performed without intravenous contrast. The dose -length product (DLP) was 39.74 mGy-cm. Automated exposure control and iterative reconstruction techn [employer] were employed. COMPARISON: 06/07/2019 FINDINGS: There is moderate emphysema. Calcified pulmonary nodules and calcified right hilar and medi astinal lymph nodes are consistent with old granulomatous disease. No pathologically enlarged thoraci c lymph nodes are identified. The heart size is normal. The lungs are free of acute opacities. Puncta te calcifications in an otherwise normal spleen likely represent healed granulomatous disease. There is mild thoracic spondylosis. IMPRESSION: 1. Lung-RADS category 1: Negative. Continue annual screening with noncontrast low-dose chest CT in 12 months. Reviewed, dictated and finalized at location A. IMPRESSION: 1. Lung-RADS category 1: Negative. Continue annual screening with noncontrast l ow-dose chest CT in 12 months.
== END ==
PROVIDERS: Visit Provider Nurse Practitioner
DX: Z12.2 Encounter for screening for malignant neoplasm of respiratory organs (principal); Z87.891 Personal history of nicotine dependence
CPT/HCPCS: 71271

== ENCOUNTER 2020-12-12 08:04 | Outpatient (CLI) | payer MEDICARE, SELFPAY ==
--- NOTE | 2020-12-12 | ECHO_ITS ---
Patient Info Name: Melissa Longoria Age: 70 years : 1950 Gender: Female Ht: 62 in Wt: 113 lbs BSA: 1.50 m2 HR: 70 bpm BP: 111 / 64 mmHg Heart Rhythm: Sinus Rhythm Technical Quality: Fair Exam Date: 12/12/2020 9:40 AM Exam Location: [facility] Patient Status: Outpatient Admit Date: 12/12/2020 Staff Ordering Physician: John, Jaquelin DIAZ Program Director Scouting: Kezia Berry RDCS Attending Provider: JavierJaquelin Exam Type: CA echo doppler color flow Study Info Indications - COPD R06.09 - Other forms of dyspnea Complete two-dimensional, color flow and Doppler transthoracic echocardiogram is performed. Summary 1. Complete two-dimensional, color flow and Doppler transthoracic echocardiogram is performed. 2. Left ventricular chamber size, wall thickness are normal. Overall good left ventricular function, with possible basal inferior septal hypokinesis, with an estimated ejection fraction of 55-60%. 3. Left atrial chamber dimension is mildly enlarged. 4. Intermittent color flow noted across the atrial septum suggesting a small patent foramen ovale. 5. Normal sinus rhythm. Left Ventricle Left ventricular chamber dimension is normal. Left ventricular systolic function is normal, estimated at 55-60%. There is no increased left ventricular wall thickness. Left ventricular septal wall motion is normal. The left ventricular diastolic function is normal. Left ventricular chamber size, wall thickness are normal. Overall good left ventricular function, with possible basal inferior septal hypokinesis, with an estimated ejection fraction of 55-60%. Right Ventricle Right ventricular chamber dimension is normal. Right ventricular systolic function is normal. Left Atria Left atrial chamber dimension is mildly enlarged. Right Atria Right atrial chamber dimension is normal. Aortic Valve The aortic valve is trileaflet. There is no aortic valve sclerosis. There is no aortic valve stenosis. There is no aortic valve regurgitation. Pulmonic Valve The pulmonic valve is normal. There is no pulmonic valve stenosis. There is no pulmonic regurgitation. Mitral Valve The mitral valve has normal leaflets. There is no mitral valve stenosis. There is trace mitral valve regurgitation. Tricuspid Valve The tricuspid valve leaflets are normal. There is no significant tricuspid valve stenosis. There is trace tricuspid valve regurgitation. Mild pulmonary hypertension, estimated pulmonary arterial systolic pressure is 37 mmHg. Pericardium/Pleural The pericardium appears normal. There is no pericardial effusion. Inferior Vena Cava Normal inferior vena cava with >50% collapse upon inspiration consistent with Empty right atrial pressure, 10 mmHg. Aorta The aortic root size at the sinus of Valsalva is normal. The prox ascending aorta size is normal. Left Ventricular Outflow Tract Name Value Normal LVOT 2D LVOT Diameter 2.0 cm LVOT Doppler LVOT Peak Gradient 4 mmHg LVOT Mean Gradient 2 mmHg LVOT VTI
--- NOTE | 2020-12-12 13:03 | WPDPFTINT ---
PFT Procedure Performed PFT Procedure Performed Spirometry with Pre/Post Bronchodilator Plethysmography (Lung Vol) Diffusing Cap (DLCO) Flow Vol Loop PFT Interpretation This is a pulmonary function test with pre and post-bronchodilator spirometry, plethysmography and diffusing capacity. The test was performed and results interpreted in accordance with the 2019 and 2005 ATS/ERS Task Force guidelines respectively using the Global Lung Function Initiative-2012 reference equations. Patient demonstrated good effort and cooperation. Reproducibility criteria were met. The quality of the pre bronchodilator spirometry maneuver was Grade A and post bronchodilator spirometry maneuver was Grade A. Findings: Spirometry: there is decreased maximal expiratory airflow at all lung volumes with a concave expiratory flow tracing. The contour the inspiratory flow tracing is normal. The pre bronchodilator FVC is 2.11 L, 80% predicted. The pre bronchodilator FEV1 is 0.74 L, 36% predicted. The FEV1: FVC ratio is 35%. The post bronchodilator FVC is 2.23 L, representing a 6% increase. The post bronchodilator FEV1 is 0.81 L, representing a 10% increase. Plethysmography: The total lung capacity is 5.10 L, 108% predicted. The functional residual capacity is 3.71 L, 138% predicted. The residual volume is 2.99 L, 144% predicted. Diffusing capacity: The absolute diffusion capacity 6.9, 35% predicted. The diffusing capacity corrected for alveolar volume is 2.20, 50% predicted. Impression: There is a severe obstructive abnormality without significant improvement after inhaling a single dose of albuterol. The increase in residual volume is consistent with air trapping from an obstructive abnormality. The absolute diffusing capacity is severely decreased and remains moderately decreased when corrected for alveolar volume. There are no prior studies for comparison
--- NOTE | 2020-12-12 13:06 | WPDSIXMINUTE ---
Six Minute Walk Procedure Procedure Performed Pulmonary Stress Test (6 min walk) Six Minute Walk This is a 6 minute walk test. The test was performed and interpreted in accordance with the 2014 ERS/ATS task force guidelines. Findings: The patient's resting room air oxygen saturation measured by pulse oximetry was 95% and her heart rate was 88 bpm. Patient ambulated for 274 meters and oxygen saturation remained 92 to 95%. Heart rate at the end of the study was 101 bpm. The patient did not qualify for supplemental oxygen at rest or with ambulation. There are no prior studies for comparison.
== END 2020-12-12 08:05 | disposition home or self-care (01) ==
PROVIDERS: PCP Family Medicine; Visit Provider Nurse Practitioner
DX: R06.02 Shortness of breath (principal); J44.9 Chronic obstructive pulmonary disease, unspecified; R06.09 Other forms of dyspnea
CPT/HCPCS: 93306; 94060; 94618; 94726; 94729

== ENCOUNTER → 2021-04-04 01:24 | Outpatient (CLI) | payer MEDICARE, SELFPAY ==
[2021-04-04 21:11] LABS: SARS-CoV-2 RNA PCR Negative
== END ==
PROVIDERS: PCP Family Medicine; Visit Provider Nurse Practitioner Family
DX: R68.89 Other general symptoms and signs (principal); Z20.822 Contact with and (suspected) exposure to COVID-19
CPT/HCPCS: C9803; U0003; U0005

== ENCOUNTER 2022-02-17 22:01 | Emergency (ER) | payer MEDICARE, SELFPAY ==
--- NOTE | ~2022-02-17 | XR_ITS ---
XR chest 1V portable 02/17/2022 22:26 Indication: Shortness of breath. COPD. Hypertension. Procedure: AP portable chest Comparison: Comparison to multiple prior studies sequentially, with oldest reviewed study dated 02/15. Findings: Heart size normal. There is chronic granulomatous disease. No focal air space disease, pulm onary edema, pleural effusion or suspected pneumothorax. No acute osseous abnormality. The lungs are hyperinflated which is consistent with, but not diagnostic of chronic obstructive pulmo nary disease. Impression: 1: No acute cardiopulmonary disease. Reviewed, dictated and finalized at location A. RTISING OPERATIONS COORDINATOR Impression: 1: No acute cardiopulmonary disease.
[2022-02-17 21:58] VITALS: BP 135/82; PULSE 110; RESP 28; TEMP 36.5; O2SAT 99
--- NOTE | 2022-02-17 22:06 | ECG_ITS ---
Measurements Intervals [place] Rate: 110 P: 85 FL: 118 QRS: 91 QRSD: 95 T: 78 QT: 316 QTc: 428 Interpretive Statements SINUS TACHYCARDIA WITH SHORT FL INTERVAL WITH OCCASIONAL VENTRICULAR PREMATURE COMPLEXES WITH FREQUENT SUPRAVENTRICULAR PREMATURE COMPLEXES POSSIBLE LEFT ATRIAL ENLARGEMENT [-0.1mV P-WAVE IN V1/V2] BORDERLINE RIGHT AXIS DEVIATION [QRS AXIS > 90] MODERATE ST DEPRESSION [0.05+ mV ST DEPRESSION] COMPARED TO ECG 11/01/2020 09:27:15 [address]CARDIA NOW PRESENT ST (T WAVE) DEVIATION NOW PRESENT Electronically Signed On 02-18-2022 11:19:02 ORTHOPEDICALLY IMPAIRED TEACHER by Will Squires M.D.
[2022-02-17 22:09] VITALS: O2SAT 97
--- NOTE | 2022-02-17 22:19 | ED.GENADULT ---
HPI - General Adult General Chief complaint: Shortness of Breath/Dyspnea Stated complaint: SOB Time Seen by Provider: 02/17/22 22:10 History of Present Illness HPI narrative: Patient is 71-year-old female who presents to Emergency Department with a chief complaint of shortness of breath. The patient reports she has prior history of COPD and had COVID fairly recently. The patient states she has been on her normal home oxygen and has noticed that whenever she walks she gets short of breath. Patient states that today she dropped down to about 87% with ambulation and her heart rate jumped up in the 140s and 150s. The patient reports she is unable to get a good deep breath. Patient denies fever reports that she started taking prednisone and had 20 mg today and also has done several breathing treatments. Related Data Home Medications Medication Instructions Recorded Confirmed albuterol sulfate 90 mcg/actuation 1 puff inhalation Q4-6H PRN 06/07/19 02/06/21 aerosol inhaler (ProAir HFA) Shortness Of Breath bupropion HCl 150 mg tablet,12 hr 150 mg PO BID 06/07/19 02/06/21 sustained-release coenzyme Q10 200 mg capsule (Co 200 mg PO DAILY 09/20/20 02/06/21 Q-10) budesonide 160 mcg-glycopyr 9 2 inh inhalation BID 08/07/21 mcg-formot 4.8 mcg/actuation HFA inhaler (Breztri Aerosphere) Allergies Allergy/AdvReac Type Severity Reaction Status Date / Time ciprofloxacin [From Cipro] AdvReac Nausea Verified 08/07/21 11:01 Review of Systems Review of Systems: A 10 system review of systems was completed on the patient and is negative except for what is stated in the HPI. Nursing and ancillary documentation was reviewed. [facility] Past Medical History Medical History COPD (chronic obstructive pulmonary disease) Depression GERD (gastroesophageal reflux disease) Skin cancer Status post excision from the nose requiring plastic surgery, also removed from the arms and back Thyroid nodule Surgical History Surgical History History of bilateral cataract extraction 2007 History of breast biopsy With benign pathology History of rhinoplasty Status post hysteroscopic polypectomy Family History Family History Father Polycythemia vera Leukemia Sibling Breast cancer ADHD Emphysema of lung Mother Emphysema of lung Social History Social History Social History: Primary care physician: Dr. Jamia Yan Code status: Full code. She would like her 2 older children to be surrogate decision maker. Smoking packs per day: 0.50 Smoking cigarettes per day: 10.0 Years smoked: 58 Smoking pack-years: 29.00 Smoking status: Former smoker Tobacco type: cigarettes Second hand tobacco smoke exposure: Yes Smoking end date: 10/25/20 Alcohol intake: former Drinks per week: 0 Substance use: never Substance use type: does not use, former substance user and marijuana Additional living arrangements comments: She lives alone. She recently left the 10 year relationship. She has 3 adult children. Her daughter lives in [place] her 2 sons live locally. She would want her daughter and her older son to be her surrogate decision makers in case of an emergency. Gender identity (if verbalized by the patient): Female Spiritual care concerns: No Agree to blood products: Yes Exam Narrative: GENERAL: Well-appearing, well-nourished, and in no acute distress. HEAD: Normocephalic, atraumatic. EYES: PERRLA and EOMI. ENT: Nares clear, no rhinorrhea or epistaxis. Mucous membranes moist. NECK: Supple. CHEST: Clear to auscultation. No respiratory distress. HEART: Regular rate and rhythm. No murmur heard. Normal peripheral pulses
[2022-02-17 22:21] LABS: Basophils Percent Auto 0.2 % (0.2-1.2); Eosinophils Percent Auto 0.3 % (0-4.4); Hemoglobin 12.1 g/dL (12.0-15.0); Immature Granulocyte Absolute 0.04 K/mm3 (0.00-0.031); Immature Granulocyte Percent A 0.4 % (0-0.5); Lymphocytes Absolute Auto 1.02 K/mm3 (0.9-3.2); Lymphocytes Percent Auto 10.4 % (18.3-44.2); Mean Corpuscular HGB Conc 31.8 g/dl (32-36); Mean Corpuscular Hemoglobin 33.1 pg (26-34); Mean Corpuscular Volume 103.8 fl (80-100); Mean Platelet Volume 9.8 fl (7.4-10.4); Monocytes Absolute Auto 0.5 K/mm3 (0.1-0.6); Neutrophils Absolute Auto 8.2 K/mm3 (1.3-6.7); Neutrophils Percent Auto 83.7 % (45.5-73.1); Platelet Count Result 335 k/mm3 (150-375); Red Blood Count 3.66 M/mm3 (4.2-5.4); Red Cell Distribution Width 13.2 % (11.5-14.5); White Blood Count 9.8 K/mm3 (4.5-10.0)
[2022-02-17 22:35] LABS: Alanine Aminotransferase 22 U/L (6-35); Albumin Level 4.3 g/dL (3.5-5.1); Alkaline Phosphatase 50 U/L (38-126); Anion Gap 5 mmol/L (8-16); Aspartate Amino Transferase 22 U/L (14-36); Bilirubin,Total 0.2 mg/dL (0.2-1.3); Blood Urea Nitrogen 17 mg/dL (7-17); Calcium 9.3 mg/dL (8.4-10.2); Carbon Dioxide 33 mmol/L (22-30); Chloride 100 mmol/L (98-107); Estimated CRCL calculation 68 ml/min; Estimated Glomerular Filt Rate > 60; Glucose 135 mg/dL (65-110); Potassium 4.1 mmol/L (3.4-5.0); Sodium 138 mmol/L (137-145)
[2022-02-17] MEDS: methylPREDNISolone SOD SUCC 125 MG VIAL IV PUSH (22:38)
[2022-02-17 22:45] LABS: Appearance Urine Clear (Clear); Bilirubin Urine Negative (Negative); Blood Urine Negative (Negative); Color Urine Yellow (Yellow); Glucose Urine UA Negative (Negative); Ketones Urine Negative (Negative); Leukocyte Esterase Ur Negative LEU/UL (Negative); Nitrate Urine Negative (Negative); Protein Urine Negative (Negative); Urobilinogen Urine 0.2 mg/dL (<2.0); pH Urine 6.5 (5.0-9.0)
[2022-02-17 22:51] LABS: Mucus Urine Rare /lpf; RBC Urine 0-2 /hpf (0-2); Squamous Epithelial Cell Urine Rare /hpf (Few); WBC Urine 0-3 /hpf
[2022-02-17 23:03] LABS: Lactic Acid Reflex 2.1 mmol/L (0.7-2.0); Magnesium 2.3 mg/dL (1.6-2.3)
[2022-02-17 23:04] VITALS: BP 135/82; PULSE 93; RESP 23; O2SAT 97
[2022-02-17 23:08] LABS: Add Urine Microscopic? NO
[2022-02-17 23:16] LABS: NT Pro B Type Natriuretic Pept 419 pg/mL (5-100); Troponin I < 0.012 ng/mL (0.000-0.034)
[2022-02-17 23:21] LABS: Influenza A QL RT-PCR Negative (Negative); Influenza B QL RT-PCR Negative (Negative); SARS-CoV-2 RNA PCR Negative
[2022-02-17 23:27] LABS: Procalcitonin 0.1 ng/mL
[2022-02-18 01:42] LABS: Reflex Lactic Acid Yes or No Add Lactic
== END 2022-02-18 00:31 | disposition home or self-care (01) ==
PROVIDERS: Emergency Provider Emergency Medicine; PCP Family Medicine
DX: J44.1 Chronic obstructive pulmonary disease with (acute) exacerbation (principal); Z20.822 Contact with and (suspected) exposure to COVID-19; K21.9 Gastro-esophageal reflux disease without esophagitis; F32.A Depression, unspecified; Z98.42 Cataract extraction status, left eye; Z98.41 Cataract extraction status, right eye; Z85.828 Personal history of other malignant neoplasm of skin; Z86.16 Personal history of COVID-19; Z87.891 Personal history of nicotine dependence; R00.0 Tachycardia, unspecified; I49.1 Atrial premature depolarization; R94.31 Abnormal electrocardiogram [ECG] [EKG]
CPT/HCPCS: 36415; 71045; 80053; 81003; 83605; 83735; 83880; 84145; 84484; 85025; 87502; 93005; 96374; 99284; J2930; U0003; U0005

== ENCOUNTER 2022-03-04 04:07 | Inpatient (IN) | payer MEDICARE, SELFPAY ==
[2022-03-04] VITALS (32 sets, daily range): BP systolic 87–123; BP diastolic 39–92; PULSE 82–124; RESP 16–28; TEMP 36.3–36.8; O2SAT 84–100; BMI 19.8
--- NOTE | ~2022-03-04 | XR_ITS ---
EXAMINATION: XR chest 2V DATE: 03/04/2022 04:57 INDICATION: Shortness of breath. TECHNIQUE: Frontal and lateral views of the chest were obtained. COMPARISON: Chest one view 02/17/2022, chest CT 11/28/2020 FINDINGS: The lungs are hyperexpanded, consistent with emphysema. Calcified right lung nodules and ca lcified right hilar and mediastinal lymph nodes are consistent with old granulomatous disease. No ple ural effusion or pneumothorax. The heart size is normal. IMPRESSION: 1. Emphysema. Reviewed, dictated and finalized at location A. GER INSIDE IMPRESSION: 1. Emphysema.
--- NOTE | ~2022-03-04 | XR_ITS ---
EXAMINATION: XR chest 2V Exam Date/Time: 03/09/2022 14:25 RIDING COACH HISTORY: Influenza, worsened dyspnea FOLLOW UP Comparison: 03/04/2022. RESULT: Lines, tubes, and devices: None. Lungs and pleura: Emphysematous/senescent change. Calcified granulomas and hilar nodes. Cardiomediastinal silhouette: Stable. Other: No acute osseous or upper abdominal finding. IMPRESSION: No acute cardiopulmonary process. Reviewed, dictated and finalized at location K. NG COACH
--- NOTE | 2022-03-04 04:18 | ECG_ITS ---
Measurements Intervals [place] Rate: 106 P: 109 ME: 107 QRS: 94 QRSD: 102 T: 96 QT: 325 QTc: 433 Interpretive Statements SINUS TACHYCARDIA WITH SHORT ME INTERVAL WITH OCCASIONAL SUPRAVENTRICULAR PREMATURE COMPLEXES BORDERLINE RIGHT AXIS DEVIATION [QRS AXIS > 90] ABNORMAL ECG Electronically Signed On 03-04-2022 10:28:44 ASSISTANT EXECUTIVE HOUSEKEEPER by Michael Nunez M.D.
[2022-03-04] MEDS: IPRATROPIUM BR 0.02% INH SOLN 0.5 MG/2.5 ML VIAL 1.5 MG INHALATION (04:55)
[2022-03-04] MEDS: ALBUTEROL SULFATE NEB 2.5 MG/3 ML INH 15 MG INHALATION (04:56)
--- NOTE | 2022-03-04 05:12 | ED.SOB ---
HPI - SOB/Dyspnea General Chief Complaint: Shortness of Breath/Dyspnea Stated Complaint: SOB, ELEVATED HR Time Seen by Provider: 03/04/22 04:15 History of Present Illness HPI Narrative: Patient is a 71-year-old female who presents ER with shortness of breath. She woke up early this morning and her heart rate was fast and she felt like her heart was beating hard. She sleeps with 2 L of oxygen on noticed her nose is clogged and cannot breathe through her oxygen fluid. Oxygen levels in the 80s. She contacted EMS. Patient was nervous to use a nebulizer that she has at home due to the fact that her heart rate was elevated and she did not want to go faster. She does feel tightness in her chest causing her trouble breathing. Patient does have a coarse cough that is productive this is typical of her COPD. Related Data Home Medications Medication Instructions Recorded Confirmed albuterol sulfate 90 mcg/actuation 1 puff inhalation Q4-6H PRN 06/07/19 03/04/22 aerosol inhaler (ProAir HFA) Shortness Of Breath bupropion HCl 150 mg tablet,12 hr 150 mg PO BID 06/07/19 03/04/22 sustained-release coenzyme Q10 200 mg capsule (Co 200 mg PO DAILY 09/20/20 03/04/22 Q-10) budesonide 160 mcg-glycopyr 9 2 inh inhalation QAM AND QPM 03/04/22 03/04/22 mcg-formot 4.8 mcg/actuation HFA inhaler Allergies Allergy/AdvReac Type Severity Reaction Status Date / Time ciprofloxacin [From Cipro] AdvReac Nausea Verified 03/04/22 04:11 Review of Systems Review of Systems: All systems reviewed & are unremarkable except as noted in HPI and below Constitutional: Constitutional: Denies chills, Denies fatigue and Denies fever(s) ENT: Denies nasal congestion and Denies sore throat Cardiovascular: Cardiovascular: Reports chest pain (Tightness) and Denies radiating jaw, neck or arm pain Respiratory: Respiratory: Reports chest congestion, Reports cough, Reports dyspnea and Reports wheezing Gastrointestinal: Gastrointestinal: Denies abdominal pain, Denies nausea and Denies vomiting Musculoskeletal: Musculoskeletal: Denies myalgias PMFSH Past Medical History Medical History COPD (chronic obstructive pulmonary disease) Depression GERD (gastroesophageal reflux disease) Skin cancer Status post excision from the nose requiring plastic surgery, also removed from the arms and back Thyroid nodule Surgical History Surgical History History of bilateral cataract extraction 2007 History of breast biopsy With benign pathology History of rhinoplasty Status post hysteroscopic polypectomy Family History Family History Father Polycythemia vera Leukemia Sibling Breast cancer ADHD Emphysema of lung Mother Emphysema of lung Social History Social History Social History: Primary care physician: Dr. Jamia Yan Code status: Full code. She would like her 2 older children to be surrogate decision maker. Smoking packs per day: 2 Smoking cigarettes per day: 40.0 Years smoked: 50 Smoking pack-years: 100.00 Smoking status: Former smoker Tobacco type: cigarettes Second hand tobacco smoke exposure: Yes Smoking end date: 10/25/20 Alcohol intake: never Drinks per week: 0 Substance use: never Substance use type: does not use, former substance user and marijuana Lack of Transportation: No Lack of Food: Never True Current Housing: I Have Housing Concerned About Future Housing: No Difficulty Paying Gas/Electric Bills: No Difficulty Paying for Meds: No Currently Unemployed: No Education: High School Diploma/GED Difficulty w/ Childcare or Family Care: No Additional living arrangements comments: She lives alone. She rece
[2022-03-04] MEDS: methylPREDNISolone SOD SUCC 125 MG VIAL IV PUSH (05:16)
[2022-03-04 05:24] LABS: Alanine Aminotransferase 43 U/L (6-35); Alanine Aminotransferase 45 U/L (6-35); Albumin Level 4.3 g/dL (3.5-5.1); Alkaline Phosphatase 59 U/L (38-126); Alkaline Phosphatase 67 U/L (38-126); Anion Gap 4 mmol/L (8-16); Aspartate Amino Transferase 36 U/L (14-36); Aspartate Amino Transferase 39 U/L (14-36); Bilirubin,Total 0.5 mg/dL (0.2-1.3); Blood Urea Nitrogen 14 mg/dL (7-17); Blood Urea Nitrogen 15 mg/dL (7-17); Calcium 9.5 mg/dL (8.4-10.2); Calcium 9.6 mg/dL (8.4-10.2); Carbon Dioxide 33 mmol/L (22-30); Chloride 96 mmol/L (98-107); Chloride 98 mmol/L (98-107); Estimated CRCL calculation 68 ml/min; Estimated Glomerular Filt Rate > 60; Glucose 100 mg/dL (65-110); Glucose 103 mg/dL (65-110); Potassium 3.6 mmol/L (3.4-5.0); Sodium 133 mmol/L (137-145); Sodium 135 mmol/L (137-145)
[2022-03-04 05:25] LABS: Basophils Percent Auto 0.3 % (0.2-1.2); Eosinophils Absolute Auto 0.2 K/mm3 (0-0.3); Eosinophils Percent Auto 1.3 % (0-4.4); Hematocrit 38.2 % (37.0-47.0); Hemoglobin 12.2 g/dL (12.0-15.0); Immature Granulocyte Absolute 0.04 K/mm3 (0.00-0.031); Immature Granulocyte Percent A 0.3 % (0-0.5); Lymphocytes Absolute Auto 1.27 K/mm3 (0.9-3.2); Mean Corpuscular HGB Conc 31.9 g/dl (32-36); Mean Corpuscular Hemoglobin 32.5 pg (26-34); Mean Corpuscular Volume 101.9 fl (80-100); Mean Platelet Volume 10.6 fl (7.4-10.4); Monocytes Percent Auto 8.4 % (2.6-8.5); Neutrophils Absolute Auto 9.1 K/mm3 (1.3-6.7); Neutrophils Percent Auto 78.7 % (45.5-73.1); Platelet Count Result 247 k/mm3 (150-375); Red Blood Count 3.75 M/mm3 (4.2-5.4); Red Cell Distribution Width 13.2 % (11.5-14.5); White Blood Count 11.6 K/mm3 (4.5-10.0)
[2022-03-04 05:48] LABS: Influenza A QL RT-PCR Positive (Negative); Influenza B QL RT-PCR Negative (Negative); SARS-CoV-2 RNA PCR Negative
[2022-03-04] MEDS: SODIUM CHLORIDE 0.9% IV 1,000 ML 999 ML IV CONT (07:29)
[2022-03-04] MEDS: OSELTAMIVIR PHOSPHATE 75 MG CAPSULE PO ×2 (07:32→22:22)
[2022-03-04 08:15] LABS: Alveolar/Arterial O2 Gradient 61.2 mmHg; Base Excess ABG 0.5 mEq/l (+/-2.0); Carboxyhemoglobin 0.3 % THb (0-2.0); Fractional Inspired Oxygen 28 %; HCO3 ABG 25.1 mEq/l (22.0-26.0); Methemoglobin ABG 0.3 %THb (0-1.5); Oxygen Content ABG 16.5 %vol (16.0-22.0); Oxygen Saturation ABG 97.1 % (95.0-100.0); Oxyhemoglobin 95.8 % THb (90.0-100.0); PCO2 ABG 40.2 mmHg (35.0-45.0); PO2 FiO2 Ratio Arterial Blood 3.25 %; Reduced Hemoglobin 3.6 %THb (0-5.0); Total Hemoglobin 12.2 g/dL (12.0-18.0); pH ABG 7.413 (7.350-7.450)
[2022-03-04 08:16] LABS: Device NASAL CANNULA; Modified Allen's Test Pass; Site Drawn LEFT RADIAL
[2022-03-04] MEDS: SODIUM CHLORIDE 0.9% IV 1,000 ML 125 ML IV CONT (09:34)
--- NOTE | 2022-03-04 09:52 | PC.NURSE ---
breakfast and lunch ordered with food and nutrition. [email or web address]
--- NOTE | 2022-03-04 12:21 | PCRCNOTE ---
Window of time for administration has passed. See next scheduled administration. PT. ALSO HAD AN HOUR LONG TX THIS MORNING.
--- NOTE | 2022-03-04 13:57 | PC.NURSE ---
Discussed with patient possible transfer to [facility] for admission due to high peak census and not have a medical telemetry bed available at our facility. Pt adamant that she does not wish to be transferred to [facility] for a bed. hospitalist and [facility] supervisor publications made aware.
[2022-03-04] MEDS: methylPREDNISolone SOD SUCC 40 MG VIAL IV PUSH ×2 (14:11→22:23)
[2022-03-04] MEDS: IPRATROPIUM BR 0.02% INH SOLN 0.5 MG/2.5 ML VIAL INHALATION ×2 (14:29→20:55)
[2022-03-04] MEDS: ALBUTEROL SULFATE NEB 2.5 MG/3 ML INH 5 MG INHALATION ×2 (14:29→20:55)
--- NOTE | 2022-03-04 17:00 | PM.IMHP ---
H&P: HPI History of Present Illness Date/Time: 03/04/22 17:00 Chief Complaint: Racing heart. Narrative: This is a pleasant 71-year-old female former smoker with COPD and chronic respiratory failure on 2 L nasal cannula at night who presented to the emergency department via EMS from home for evaluation of racing heart. Yesterday she started to feel bad with a nonproductive cough, aches, and nasal congestion. She was able to fall asleep but was wakened in the middle of the night with a pounding and racing heart associated with shortness of breath and tightness in the chest with wheezing. Her pulse oximeter read in the low 80s and her heart rate ranged between the 120s to 140s. She assumed that she was not getting adequate oxygenation due to her nasal congestion and she made some adjustments on her oxygen and with eventual improvement. Despite this her heart continued to race and she was still feeling short of breath though she did not try to use a nebulizer at home as she was worried her heart rate started going even faster. She received a nebulizer treatment a dose of Solu-Medrol on arrival to the ED and she is feeling a bit better. She did test positive for influenza A and has been started on Tamiflu. She is being admitted in this setting for further treatment. She denies syncope, near syncope, current chest pain, fever, sore throat, nausea, vomiting, and diarrhea. She did get her flu shot this year. Review of Systems Review of Systems: Twelve systems were reviewed and are negative except for as per HPI. [facility] Past Medical History Medical History (Updated 03/04/22 @ 21:32 by Stephy Diaz PA-C) Chronic hyponatremia Chronic obstructive pulmonary disease Chronic respiratory failure with hypoxia, on home oxygen therapy Depression GERD (gastroesophageal reflux disease) Skin cancer Status post excision from the nose requiring plastic surgery, also removed from the arms and back Thyroid nodule Tobacco abuse Surgical History Surgical History (Updated 03/04/22 @ 21:28 by Stephy Diaz PA-C) History of bilateral cataract extraction (2007) History of breast biopsy With benign pathology History of rhinoplasty Status post hysteroscopic polypectomy Family History Family History Father Polycythemia vera Leukemia Sibling Breast cancer ADHD Emphysema of lung Mother Emphysema of lung Social History Social History (Updated 03/04/22 @ 21:29 by Stephy Diaz PA-C) Social History: Surrogate medical decision maker: kristen Lentz. Code status: Full code. Smoking packs per day: 2 Smoking cigarettes per day: 40.0 Years smoked: 50 Smoking pack-years: 100.00 Smoking status: Former smoker Tobacco type: cigarettes Second hand tobacco smoke exposure: Yes Smoking end date: 10/25/20 Alcohol intake: never Drinks per week: 0 Substance use: never Substance use type: does not use, former substance user and marijuana Lack of Transportation: No Lack of Food: Never True Current Housing: I Have Housing Concerned About Future Housing: No Difficulty Paying Gas/Electric Bills: No Difficulty Paying for Meds: No Currently Unemployed: No Education: High School Diploma/GED Difficulty w/ Childcare or Family Care: No Additional living arrangements comments: Lives in [place]. Has 3 adult children. Her daughter lives in [place] her 2 sons live locally. Spiritual care concerns: No Agree to blood products: Yes Meds Home Medications and Allergies Home Medications Medication Instructions Recorded Confirmed Type albuterol sulfate 90 mcg/actuation 1 puff inhalation Q4-6H PRN 06/07/19 03/04/22 History aerosol inhaler (ProAir HFA) Shortness Of Breath bupropion HCl 150 mg tablet,12 hr 150 mg PO BID 06/07/19 03/04/22 History sustained-release Saccharomyces boulardii 250 mg 250 m
--- NOTE | 2022-03-04 17:12 | PC.NURSE ---
Pt refused to go to [facility] - [place]
[2022-03-04] MEDS: ACETAMINOPHEN 325 MG TABLET 650 MG PO (19:15)
[2022-03-04] MEDS: guaiFENesin 12 HR 600 MG TABCR PO (22:23)
[2022-03-05] VITALS (14 sets, daily range): BP systolic 89–110; BP diastolic 43–53; PULSE 71–97; RESP 16–22; TEMP 36.2–36.8; O2SAT 91–100; BMI 19.8
[2022-03-05] MEDS: ALBUTEROL SULFATE NEB 2.5 MG/3 ML INH 5 MG INHALATION ×4 (02:07→21:49)
[2022-03-05] MEDS: IPRATROPIUM BR 0.02% INH SOLN 0.5 MG/2.5 ML VIAL INHALATION ×4 (02:07→21:49)
[2022-03-05] MEDS: ACETAMINOPHEN 325 MG TABLET 650 MG PO (02:42)
[2022-03-05 06:26] LABS: Hematocrit 32.4 % (37.0-47.0); Hemoglobin 10.1 g/dL (12.0-15.0); Mean Corpuscular HGB Conc 31.2 g/dl (32-36); Mean Corpuscular Hemoglobin 32.9 pg (26-34); Mean Corpuscular Volume 105.5 fl (80-100); Mean Platelet Volume 10.1 fl (7.4-10.4); Platelet Count Result 185 k/mm3 (150-375); Red Blood Count 3.07 M/mm3 (4.2-5.4); Red Cell Distribution Width 13.4 % (11.5-14.5)
[2022-03-05] MEDS: methylPREDNISolone SOD SUCC 40 MG VIAL IV PUSH ×3 (06:42→22:06)
[2022-03-05 06:56] LABS: Anion Gap 2 mmol/L (8-16); Blood Urea Nitrogen 7 mg/dL (7-17); Calcium 8.4 mg/dL (8.4-10.2); Carbon Dioxide 30 mmol/L (22-30); Chloride 101 mmol/L (98-107); Estimated CRCL calculation 81 ml/min; Estimated Glomerular Filt Rate > 60; Glucose 129 mg/dL (65-110); Magnesium 2.2 mg/dL (1.6-2.3); Potassium 3.8 mmol/L (3.4-5.0); Sodium 133 mmol/L (137-145)
[2022-03-05 07:41] LABS: Procalcitonin 0.1 ng/mL
[2022-03-05 07:54] LABS: Thyroid Stimulating Hormone Reflex 0.325 uIU/mL (0.465-4.68)
[2022-03-05] MEDS: guaiFENesin 12 HR 600 MG TABCR PO ×2 (09:11→22:06)
[2022-03-05] MEDS: buPROPion HCL SR (12 HR) 150 MG TAB PO ×2 (09:11→16:49)
[2022-03-05] MEDS: SACCHAROMYCES BOULARDII 250 MG CAPSULE PO ×2 (09:11→16:49)
[2022-03-05] MEDS: ENOXAPARIN 40 MG/0.4 ML SYRINGE SUB-Q (09:12)
[2022-03-05] MEDS: FLUTICASONE PROPIONATE 0.05% NA SPR 16 GM BTL (*BKC) 1 SPRAY NASAL ×2 (09:12→22:05)
[2022-03-05] MEDS: OSELTAMIVIR PHOSPHATE 75 MG CAPSULE PO ×2 (09:12→22:06)
--- NOTE | 2022-03-05 11:24 | PM.IMPN ---
Progress Note: A&P Assessment and Plan (1) Influenza A: Code(s): J10.1 - Influenza due to other identified influenza virus with other respiratory manifestations Status: Acute Assessment and Plan: Patient did receive a flu shot this year. Continue Tamiflu and supportive care. Sputum culture pending (2) COPD exacerbation: Code(s): J44.1 - Chronic obstructive pulmonary disease with (acute) exacerbation Status: Acute Assessment and Plan: Precipitated by 1. Continue scheduled bronchodilators and Solu-Medrol 40 mg q8h. Continue with azithromycin given sputum changes. (3) Chronic respiratory failure with hypoxia, on home oxygen therapy: Code(s): J96.11 - Chronic respiratory failure with hypoxia; Z99.81 - Dependence on supplemental oxygen Status: Acute Assessment and Plan: Baseline oxygen requirement is 2 L at night only. No daytime oxygen requirement. Required up to 4 L supplemental O2 during admission, she has been weaned to 3 L today. Hypoxia felt to be secondary to COPD exacerbation and influenza. PE unlikely. (4) Tachycardia: Code(s): R00.0 - Tachycardia, unspecified Status: Acute Assessment and Plan: Likely related to hypoxia initially. She does seem to have intermittent tachycardia following bronchodilators. As above, PE felt to be unlikely and tachycardia has resolved. Patient has been monitored on telemetry and rate is controlled. Will discontinue tele at this time (5) Chronic hyponatremia: Code(s): E87.1 - Hypo-osmolality and hyponatremia Status: Acute Assessment and Plan: Sodium is stable on review of previous labs. Subjective Date/time seen: 03/05/22 11:24 Interval history: Date of service: 03/05/2022 Melissa Longoria is a 71-year-old female with a history of COPD, chronic respiratory failure on 2 L supplemental oxygen, tobacco abuse, depression, and GERD who is seen in follow-up for influenza. patient reports that she is feeling very poorly today. She endorses shortness of breath and dyspnea on exertion. Feels like she cannot take a deep breath and feels like she is choking to try to get air. her symptoms worsened when she got out of bed to get to the bedside commode. She states that when she is at rest she is mostly comfortable, however even just a slight movements cause significant shortness of breath. she is wheezing. she has cough productive of yellowish sputum. She reports this morning she awoke and noticed her sheets were wet due to night sweats. Denies any fevers or chills. She endorses headache. No nausea, vomiting, abdominal pain. denies body aches. notes onset of diarrhea after starting antibiotics. Review of Systems Review of Systems: All systems reviewed & are unremarkable except as noted in HPI and below Exam Narrative: General: Well-nourished, well-appearing 71-year-old female, on bedside commode, comfortable, NARD Neuro: awake, alert and oriented x4, speech clear, no focal neuro deficits noted HEENMT: normocephalic, atraumatic, EOMI, sclerae anicteric Respiratory: diffuse wheezing in all lung drake, nonlabored breathing Cardio: regular rate, regular rhythm with S1-S2 Abdomen: nondistended, normoactive bowel sounds, soft, nontender to palpation Extremities: no edema, erythema, or tenderness to palpation Skin: no rashes or lesions, warm and dry Psych: appropriate mood and affect, judgment and insight intact Objective Data Vital Signs Vital Signs: Vital Signs - 24 hr 03/04/22 12:29 03/04/22 14:15 03/04/22 14:30 Temperature Pulse Rate 87 90 91 Respiratory Rate 20 18 26 H Blood Pressure 99/56 L 101/56 L Pulse Oximetry 98 99 Oxygen Delivery Oxygen Flow Rate 03/04/22 14:30 03/04/22 14:54 03/04/22 11:31 Temperature Pulse Rate 99 86 Respiratory Rate 25 H 21 H Blood Pressure 98/53 L Pulse Oximetry 98 99 Oxygen Delivery Nasal Cannul
[2022-03-05 14:19] LABS: Free T4 Free Thyroxine Reflex 1.02 ng/dL (0.78-2.19)
[2022-03-05 16:54] LABS: Total Triiodothyronine (T3) 0.79 NG/ML (0.97-1.69)
--- NOTE | 2022-03-05 19:04 | PHAR ---
HOME MED BREZTRI HFA AEROSOL MDI VERIFIED BY PHARMACY
[2022-03-06] VITALS (12 sets, daily range): BP systolic 113–123; BP diastolic 38–57; PULSE 74–87; RESP 14–22; TEMP 36.3–36.4; O2SAT 92–98
[2022-03-06] MEDS: IPRATROPIUM BR 0.02% INH SOLN 0.5 MG/2.5 ML VIAL INHALATION ×4 (02:13→21:05)
[2022-03-06] MEDS: ALBUTEROL SULFATE NEB 2.5 MG/3 ML INH 5 MG INHALATION ×4 (02:13→21:05)
[2022-03-06] MEDS: methylPREDNISolone SOD SUCC 40 MG VIAL IV PUSH ×2 (06:09→18:41)
[2022-03-06 07:20] LABS: Anion Gap 3 mmol/L (8-16); Blood Urea Nitrogen 9 mg/dL (7-17); Calcium 8.3 mg/dL (8.4-10.2); Carbon Dioxide 31 mmol/L (22-30); Chloride 98 mmol/L (98-107); Estimated CRCL calculation 68 ml/min; Estimated Glomerular Filt Rate > 60; Glucose 120 mg/dL (65-110); Hematocrit 31.2 % (37.0-47.0); Hemoglobin 9.7 g/dL (12.0-15.0); Mean Corpuscular HGB Conc 31.1 g/dl (32-36); Mean Corpuscular Hemoglobin 32.3 pg (26-34); Mean Platelet Volume 10.1 fl (7.4-10.4); Platelet Count Result 192 k/mm3 (150-375); Potassium 3.9 mmol/L (3.4-5.0); Red Cell Distribution Width 13.1 % (11.5-14.5); Sodium 132 mmol/L (137-145); White Blood Count 6.1 K/mm3 (4.5-10.0)
[2022-03-06] MEDS: guaiFENesin 12 HR 600 MG TABCR PO ×2 (10:10→20:46)
[2022-03-06] MEDS: OSELTAMIVIR PHOSPHATE 75 MG CAPSULE PO ×2 (10:10→20:46)
[2022-03-06] MEDS: buPROPion HCL SR (12 HR) 150 MG TAB PO ×2 (10:10→18:41)
[2022-03-06] MEDS: ENOXAPARIN 40 MG/0.4 ML SYRINGE SUB-Q (10:10)
[2022-03-06] MEDS: SACCHAROMYCES BOULARDII 250 MG CAPSULE PO ×2 (10:10→18:41)
[2022-03-06] MEDS: FLUTICASONE PROPIONATE 0.05% NA SPR 16 GM BTL (*BKC) 1 SPRAY NASAL ×2 (10:11→20:46)
--- NOTE | 2022-03-06 14:49 | PM.IMPN ---
Progress Note: A&P Assessment and Plan (1) Influenza A: Code(s): J10.1 - Influenza due to other identified influenza virus with other respiratory manifestations Status: Acute Assessment and Plan: Patient did receive a flu shot this year. Continue Tamiflu and supportive care. Sputum culture pending (2) COPD exacerbation: Code(s): J44.1 - Chronic obstructive pulmonary disease with (acute) exacerbation Status: Acute Assessment and Plan: Precipitated by 1. Continue scheduled bronchodilators and Solu-Medrol, decrease to 40 mg q12h. Continue with azithromycin given sputum changes. (3) Chronic respiratory failure with hypoxia, on home oxygen therapy: Code(s): J96.11 - Chronic respiratory failure with hypoxia; Z99.81 - Dependence on supplemental oxygen Status: Acute Assessment and Plan: Baseline oxygen requirement is 2 L at night only. No daytime oxygen requirement. Required up to 4 L supplemental O2 during admission, she has been weaned to 2 L today. Hypoxia felt to be secondary to COPD exacerbation and influenza. PE unlikely. she will benefit from home oxygen evaluation prior to discharge (4) Tachycardia: Code(s): R00.0 - Tachycardia, unspecified Status: Acute Assessment and Plan: Likely related to hypoxia initially. She had intermittent tachycardia following bronchodilators. As above, PE felt to be unlikely and tachycardia has resolved. (5) Chronic hyponatremia: Code(s): E87.1 - Hypo-osmolality and hyponatremia Status: Acute Assessment and Plan: Sodium is stable on review of previous labs. (6) Abnormal TSH: Code(s): R79.89 - Other specified abnormal findings of blood chemistry Status: Acute Assessment and Plan: TSH is slightly low with normal T4. patient reports history of known thyroid nodules. Reports she was previously on thyroid medication many years ago but has not taken anything since. Will need repeat TSH with reflex as an outpatient in 4-6 weeks And follow-up with PCP Subjective Date/time seen: 03/06/22 14:49 Interval history: Date of service: 03/05/2022 Melissa Longoria is a 71-year-old female with a history of COPD, chronic respiratory failure on 2 L supplemental oxygen, tobacco abuse, depression, and GERD who is seen in follow-up for influenza. Still feeling poorly today. She endorses chest congestion is not able to cough or expectorates sputum. At rest she has no shortness of breath. She feels very breathless and with any activity. She has been checking her oxygen saturations continuously on her home pulse oximeter. encourage the patient to simply monitor her symptoms and avoid checking O2 sats so frequently. She also reports that she has been doing pulmonary rehab exercises from video she has found online. She endorses nausea today but no episodes of emesis. She is tolerating her diet. Reports her diarrhea has resolved but stool is still somewhat soft. Denies chest pain. Review of Systems Review of Systems: All systems reviewed & are unremarkable except as noted in HPI and below Exam Narrative: General: Well-nourished, well-appearing 71-year-old female, sitting up at the bedside, comfortable, NARD Neuro: awake, alert and oriented x4, speech clear, no focal neuro deficits noted HEENMT: normocephalic, atraumatic, EOMI, sclerae anicteric Respiratory: diminished breath sounds bilaterally without crackles, rhonchi, wheezes, nonlabored breathing Cardio: regular rate, regular rhythm with S1-S2 Abdomen: nondistended, normoactive bowel sounds, soft, nontender to palpation Extremities: no edema, erythema, or tenderness to palpation Skin: no rashes or lesions, warm and dry Psych: appropriate mood and affect, judgment and insight intact Objective Data Vital Signs Vital Signs: Vital Signs - 24 hr 03/05/22 21:44 03/05/22 21:53 03/05/22 22:00 Temperature 9
[2022-03-07] VITALS (13 sets, daily range): BP systolic 126–131; BP diastolic 41–61; PULSE 69–87; RESP 14–20; TEMP 36.2–36.4; O2SAT 94–98
[2022-03-07] MEDS: BENZOCAINE/MENTHOL (*BKC) 18 EA LOZENGE 1 LOZENGE PO (01:41)
[2022-03-07] MEDS: IPRATROPIUM BR 0.02% INH SOLN 0.5 MG/2.5 ML VIAL INHALATION ×4 (01:43→21:18)
[2022-03-07] MEDS: ALBUTEROL SULFATE NEB 2.5 MG/3 ML INH 5 MG INHALATION ×4 (01:43→21:19)
[2022-03-07] MEDS: methylPREDNISolone SOD SUCC 40 MG VIAL IV PUSH ×2 (05:15→17:35)
[2022-03-07 06:37] LABS: Hematocrit 32.2 % (37.0-47.0); Mean Corpuscular HGB Conc 31.1 g/dl (32-36); Mean Corpuscular Hemoglobin 32.6 pg (26-34); Mean Corpuscular Volume 104.9 fl (80-100); Mean Platelet Volume 10.6 fl (7.4-10.4); Platelet Count Result 199 k/mm3 (150-375); Red Blood Count 3.07 M/mm3 (4.2-5.4); Red Cell Distribution Width 13.2 % (11.5-14.5); White Blood Count 8.4 K/mm3 (4.5-10.0)
[2022-03-07 06:43] LABS: Anion Gap 5 mmol/L (8-16); Blood Urea Nitrogen 12 mg/dL (7-17); Carbon Dioxide 33 mmol/L (22-30); Chloride 97 mmol/L (98-107); Estimated CRCL calculation 68 ml/min; Estimated Glomerular Filt Rate > 60; Glucose 104 mg/dL (65-110); Potassium 3.6 mmol/L (3.4-5.0); Sodium 135 mmol/L (137-145)
[2022-03-07] MEDS: guaiFENesin 12 HR 600 MG TABCR PO ×2 (09:51→20:50)
[2022-03-07] MEDS: buPROPion HCL SR (12 HR) 150 MG TAB PO ×2 (09:51→17:34)
[2022-03-07] MEDS: FLUTICASONE PROPIONATE 0.05% NA SPR 16 GM BTL (*BKC) 1 SPRAY NASAL ×2 (09:52→20:50)
[2022-03-07] MEDS: ENOXAPARIN 40 MG/0.4 ML SYRINGE SUB-Q (09:52)
[2022-03-07] MEDS: SACCHAROMYCES BOULARDII 250 MG CAPSULE PO ×2 (09:52→17:34)
[2022-03-07] MEDS: OSELTAMIVIR PHOSPHATE 75 MG CAPSULE PO ×2 (09:52→20:50)
--- NOTE | 2022-03-07 15:30 | PM.IMPN ---
Progress Note: A&P Assessment and Plan (1) Influenza A: Code(s): J10.1 - Influenza due to other identified influenza virus with other respiratory manifestations Status: Acute Assessment and Plan: Patient did receive a flu shot this year. Continue Tamiflu #4 and supportive care. Preliminary sputum culture with growth of normal oropharyngeal meir (2) COPD exacerbation: Code(s): J44.1 - Chronic obstructive pulmonary disease with (acute) exacerbation Status: Acute Assessment and Plan: Precipitated by 1. Continue scheduled bronchodilators and Solu-Medrol 40 mg q12h. Wean steroids as tolerated. Continue PO azithromycin given sputum changes. (3) Chronic respiratory failure with hypoxia, on home oxygen therapy: Code(s): J96.11 - Chronic respiratory failure with hypoxia; Z99.81 - Dependence on supplemental oxygen Status: Acute Assessment and Plan: Baseline oxygen requirement is 2 L at night only. No daytime oxygen requirement. Required up to 4 L supplemental O2 during admission, she has been weaned to 2 L today. Hypoxia felt to be secondary to COPD exacerbation and influenza. PE unlikely. she will benefit from home oxygen evaluation prior to discharge (4) Tachycardia: Code(s): R00.0 - Tachycardia, unspecified Status: Resolved Assessment and Plan: Likely related to hypoxia initially. She had intermittent tachycardia following bronchodilators. As above, PE felt to be unlikely and tachycardia has resolved. (5) Chronic hyponatremia: Code(s): E87.1 - Hypo-osmolality and hyponatremia Status: Acute Assessment and Plan: Sodium is stable on review of previous labs. (6) Abnormal TSH: Code(s): R79.89 - Other specified abnormal findings of blood chemistry Status: Acute Assessment and Plan: TSH is slightly low with normal T4. patient reports history of known thyroid nodules. Reports she was previously on thyroid medication many years ago but has not taken anything since. Will need repeat TSH with reflex as an outpatient in 4-6 weeks and follow-up with PCP Subjective Date/time seen: 03/07/22 15:30 Interval history: Date of service: 03/07/2022 Melissa Longoria is a 71-year-old female with a history of COPD, chronic respiratory failure on 2 L supplemental oxygen, tobacco abuse, depression, and GERD who is seen in follow-up for influenza. Continues to endorse difficulty with cough. She is frustrated that she is not able to cough anything up. She also endorses continued wheezing. No shortness of breath at rest. Denies ROCK. No nausea, vomiting, fever, chills. Stool is becoming more formed, no diarrhea. No dysuria. Tolerating diet. Review of Systems Review of Systems: All systems reviewed & are unremarkable except as noted in HPI and below Exam Narrative: General: Well-nourished, well-appearing 71-year-old female, sitting up at the bedside, comfortable, NARD Neuro: awake, alert and oriented x4, speech clear, no focal neuro deficits noted HEENMT: normocephalic, atraumatic, EOMI, sclerae anicteric Respiratory: Diffuse wheezing, nonlabored breathing Cardio: regular rate, regular rhythm with S1-S2 Abdomen: nondistended, normoactive bowel sounds, soft, nontender to palpation Extremities: no edema, erythema, or tenderness to palpation Skin: no rashes or lesions, warm and dry Psych: appropriate mood and affect, judgment and insight intact Objective Data Vital Signs Vital Signs: Vital Signs - 24 hr 03/06/22 18:00 03/06/22 21:09 03/06/22 21:10 Temperature 97.6 F Pulse Rate 85 84 Respiratory Rate 22 H 20 Blood Pressure 122/57 L Pulse Oximetry 92 96 Oxygen Delivery Nasal Cannula Oxygen Flow Rate 2 03/06/22 20:00 03/06/22 22:00 03/07/22 01:43 Temperature 97.5 F L Pulse Rate 83 82 Respiratory Rate 16 20 Blood Pressure 123/56 L Pulse Oximetry 96 98 Oxygen Del
[2022-03-07] MEDS: AZITHROMYCIN 250 MG TABLET 500 MG PO (20:50)
[2022-03-08] VITALS (12 sets, daily range): BP systolic 98–131; BP diastolic 54–85; PULSE 72–99; RESP 14–20; TEMP 36.1–36.8; O2SAT 94–97
[2022-03-08] MEDS: ALBUTEROL SULFATE NEB 2.5 MG/3 ML INH 5 MG INHALATION ×4 (01:40→20:35)
[2022-03-08] MEDS: IPRATROPIUM BR 0.02% INH SOLN 0.5 MG/2.5 ML VIAL INHALATION ×4 (01:40→20:35)
[2022-03-08] MEDS: methylPREDNISolone SOD SUCC 40 MG VIAL IV PUSH ×2 (05:02→17:06)
[2022-03-08] MEDS: OSELTAMIVIR PHOSPHATE 75 MG CAPSULE PO ×2 (08:46→20:34)
[2022-03-08] MEDS: guaiFENesin 12 HR 600 MG TABCR PO ×2 (08:46→13:20)
[2022-03-08] MEDS: buPROPion HCL SR (12 HR) 150 MG TAB PO ×2 (08:46→17:06)
[2022-03-08] MEDS: ENOXAPARIN 40 MG/0.4 ML SYRINGE SUB-Q (08:46)
[2022-03-08] MEDS: SACCHAROMYCES BOULARDII 250 MG CAPSULE PO ×2 (08:46→17:06)
[2022-03-08] MEDS: FLUTICASONE PROPIONATE 0.05% NA SPR 16 GM BTL (*BKC) 1 SPRAY NASAL ×2 (08:47→20:34)
[2022-03-08 10:12] LABS: Mean Corpuscular HGB Conc 31.6 g/dl (32-36); Mean Corpuscular Hemoglobin 32.7 pg (26-34); Mean Corpuscular Volume 103.5 fl (80-100); Platelet Count Result 233 k/mm3 (150-375); Red Blood Count 3.67 M/mm3 (4.2-5.4); Red Cell Distribution Width 12.9 % (11.5-14.5); White Blood Count 7.2 K/mm3 (4.5-10.0)
[2022-03-08 10:53] LABS: Anion Gap 7 mmol/L (8-16); Blood Urea Nitrogen 13 mg/dL (7-17); Calcium 8.9 mg/dL (8.4-10.2); Carbon Dioxide 33 mmol/L (22-30); Chloride 94 mmol/L (98-107); Estimated CRCL calculation 83 ml/min; Estimated Glomerular Filt Rate > 60; Glucose 131 mg/dL (65-110); Potassium 4.3 mmol/L (3.4-5.0); Sodium 134 mmol/L (137-145)
--- NOTE | 2022-03-08 14:06 | PM.IMPN ---
Progress Note: A&P Assessment and Plan (1) Influenza A: Code(s): J10.1 - Influenza due to other identified influenza virus with other respiratory manifestations Status: Acute Assessment and Plan: Patient did receive a flu shot this year. Continue Tamiflu #4 and supportive care. Sputum culture with growth of normal oropharyngeal meir. Increase guaifenesin to 1200 mg BID. Freuqent incentive spirometer use recommended (2) COPD exacerbation: Code(s): J44.1 - Chronic obstructive pulmonary disease with (acute) exacerbation Status: Acute Assessment and Plan: Precipitated by 1. Continue scheduled bronchodilators and Solu-Medrol 40 mg q12h. Wean steroids as tolerated. Continue PO azithromycin given sputum changes. (3) Chronic respiratory failure with hypoxia, on home oxygen therapy: Code(s): J96.11 - Chronic respiratory failure with hypoxia; Z99.81 - Dependence on supplemental oxygen Status: Acute Assessment and Plan: Baseline oxygen requirement is 2 L at night only. No daytime oxygen requirement. Required up to 4 L supplemental O2 during admission, she has been weaned to 2 L today. Hypoxia felt to be secondary to COPD exacerbation and influenza. PE unlikely. she will benefit from home oxygen evaluation prior to discharge. Wean oxygen as tolerated (4) Tachycardia: Code(s): R00.0 - Tachycardia, unspecified Status: Resolved Assessment and Plan: Likely related to hypoxia initially. She had intermittent tachycardia following bronchodilators. As above, PE felt to be unlikely and tachycardia has resolved. (5) Chronic hyponatremia: Code(s): E87.1 - Hypo-osmolality and hyponatremia Status: Acute Assessment and Plan: Sodium is stable on review of previous labs. (6) Abnormal TSH: Code(s): R79.89 - Other specified abnormal findings of blood chemistry Status: Acute Assessment and Plan: TSH is slightly low with normal T4. patient reports history of known thyroid nodules. Reports she was previously on thyroid medication many years ago but has not taken anything since. Will need repeat TSH with reflex as an outpatient in 4-6 weeks and follow-up with PCP Subjective Date/time seen: 03/08/22 14:06 Interval history: Date of service: 03/08/2022 Melissa Longoria is a 71-year-old female with a history of COPD, chronic respiratory failure on 2 L supplemental oxygen, tobacco abuse, depression, and GERD who is seen in follow-up for influenza. reports cough productive of yellow sputum today. Continues to feel short of breath and endorses dyspnea on exertion. She is coughing more frequently. She woke up wheezing this morning. She has no chest pain. Denies fevers or chills. She endorses feeling weak and wobbly. Denies dizziness or lightheadedness. She has only been up to get to the bedside commode. Discussed getting up out of bed for meals and walking to the bathroom. Review of Systems Review of Systems: All systems reviewed & are unremarkable except as noted in HPI and below Exam Narrative: General: Well-nourished, well-appearing 71-year-old female, sitting up at the bedside, comfortable, NARD Neuro: awake, alert and oriented x4, speech clear, no focal neuro deficits noted HEENMT: normocephalic, atraumatic, EOMI, sclerae anicteric Respiratory: Diffuse wheezing, nonlabored breathing Cardio: regular rate, regular rhythm with S1-S2 Abdomen: nondistended, normoactive bowel sounds, soft, nontender to palpation Extremities: no edema, erythema, or tenderness to palpation Skin: no rashes or lesions, warm and dry Psych: appropriate mood and affect, judgment and insight intact Objective Data Vital Signs Vital Signs: Vital Signs - 24 hr 03/07/22 14:42 03/07/22 14:58 03/07/22 21:19 Temperature Pulse Rate 79 81 69 Respiratory Rate 20 20 18 Blood Pressure Pulse Oximetry Oxygen Delivery
[2022-03-08] MEDS: guaiFENesin 12 HR 600 MG TABCR 1200 MG PO (20:33)
[2022-03-08] MEDS: AZITHROMYCIN 250 MG TABLET 500 MG PO (20:34)
[2022-03-09] VITALS (11 sets, daily range): BP systolic 120–126; BP diastolic 50–72; PULSE 60–86; RESP 15–22; TEMP 36.2–36.4; O2SAT 95–98
[2022-03-09] MEDS: IPRATROPIUM BR 0.02% INH SOLN 0.5 MG/2.5 ML VIAL INHALATION ×3 (03:23→21:34)
[2022-03-09] MEDS: ALBUTEROL SULFATE NEB 2.5 MG/3 ML INH 5 MG INHALATION ×3 (03:23→21:34)
[2022-03-09] MEDS: methylPREDNISolone SOD SUCC 40 MG VIAL IV PUSH ×2 (06:13→17:32)
[2022-03-09 06:45] LABS: Hematocrit 32.7 % (37.0-47.0); Hemoglobin 10.6 g/dL (12.0-15.0); Mean Corpuscular HGB Conc 32.4 g/dl (32-36); Mean Corpuscular Hemoglobin 33.1 pg (26-34); Mean Corpuscular Volume 102.2 fl (80-100); Platelet Count Result 212 k/mm3 (150-375); Red Cell Distribution Width 12.8 % (11.5-14.5); White Blood Count 7.8 K/mm3 (4.5-10.0)
[2022-03-09 06:56] LABS: Alanine Aminotransferase 39 U/L (6-35); Albumin Level 3.4 g/dL (3.5-5.1); Alkaline Phosphatase 45 U/L (38-126); Anion Gap 0 mmol/L (8-16); Aspartate Amino Transferase 22 U/L (14-36); Bilirubin,Total 0.2 mg/dL (0.2-1.3); Blood Urea Nitrogen 12 mg/dL (7-17); Calcium 8.5 mg/dL (8.4-10.2); Carbon Dioxide 37 mmol/L (22-30); Chloride 91 mmol/L (98-107); Estimated CRCL calculation 83 ml/min; Estimated Glomerular Filt Rate > 60; Glucose 102 mg/dL (65-110); Potassium 3.6 mmol/L (3.4-5.0); Sodium 128 mmol/L (137-145)
[2022-03-09] MEDS: OSELTAMIVIR PHOSPHATE 75 MG CAPSULE PO (08:38)
[2022-03-09] MEDS: buPROPion HCL SR (12 HR) 150 MG TAB PO ×2 (08:38→17:32)
[2022-03-09] MEDS: SACCHAROMYCES BOULARDII 250 MG CAPSULE PO ×2 (08:38→17:32)
[2022-03-09] MEDS: ENOXAPARIN 40 MG/0.4 ML SYRINGE SUB-Q (08:38)
[2022-03-09] MEDS: guaiFENesin 12 HR 600 MG TABCR 1200 MG PO ×2 (08:39→21:02)
[2022-03-09] MEDS: FLUTICASONE PROPIONATE 0.05% NA SPR 16 GM BTL (*BKC) 1 SPRAY NASAL ×2 (08:39→21:02)
--- NOTE | 2022-03-09 09:39 | PCPTNOTE ---
Patient declines being seen by therapy at this time, stating she needs a breathing treatment prior to starting therapy.
[2022-03-09 10:11] LABS: Creatinine Urine 34.1 mg/dL
[2022-03-09 10:12] LABS: Sodium Urine Random 83 meq/L
--- NOTE | 2022-03-09 13:25 | PM.IMPN ---
Progress Note: A&P Assessment and Plan (1) Influenza A: Code(s): J10.1 - Influenza due to other identified influenza virus with other respiratory manifestations Status: Acute Assessment and Plan: Patient did receive a flu shot this year. Continue Tamiflu #5 and supportive care. Sputum culture with growth of normal oropharyngeal meir. Increase guaifenesin to 1200 mg BID. Frequent incentive spirometer use recommended. will proceed with repeat CXR today given patient complains of worsened respiratory symptoms (2) COPD exacerbation: Code(s): J44.1 - Chronic obstructive pulmonary disease with (acute) exacerbation Status: Acute Assessment and Plan: Precipitated by 1. Continue scheduled bronchodilators and Solu-Medrol 40 mg q12h. Wean steroids as tolerated. completed 5 days of p.o. azithromycin. (3) Chronic respiratory failure with hypoxia, on home oxygen therapy: Code(s): J96.11 - Chronic respiratory failure with hypoxia; Z99.81 - Dependence on supplemental oxygen Status: Acute Assessment and Plan: Baseline oxygen requirement is 2 L at night only. No daytime oxygen requirement. Required up to 4 L supplemental O2 during admission, she has now been weaned to 2 L. Hypoxia felt to be secondary to COPD exacerbation and influenza. She will benefit from home oxygen evaluation prior to discharge. Wean oxygen as tolerated (4) Tachycardia: Code(s): R00.0 - Tachycardia, unspecified Status: Resolved Assessment and Plan: Likely related to hypoxia initially. She had intermittent tachycardia following bronchodilators. PE unlikely and tachycardia has resolved. (5) Chronic hyponatremia: Code(s): E87.1 - Hypo-osmolality and hyponatremia Status: Acute Assessment and Plan: Sodium with decline from baseline to 128 today. Will check urine sodium and creatinine. Continue to monitor sodium levels. Recheck this afternoon. (6) Abnormal TSH: Code(s): R79.89 - Other specified abnormal findings of blood chemistry Status: Acute Assessment and Plan: TSH is slightly low with normal T4. patient reports history of known thyroid nodules. Reports she was previously on thyroid medication many years ago but has not taken anything since. Will need repeat TSH with reflex as an outpatient in 4-6 weeks and follow-up with PCP Subjective Date/time seen: 03/09/22 13:25 Interval history: Date of service: 03/08/2022 Melissa Longoria is a 71-year-old female with a history of COPD, chronic respiratory failure on 2 L supplemental oxygen, tobacco abuse, depression, and GERD who is seen in follow-up for influenza. she feels more short of breath today. She had a hard time catching her breath this morning. Overall feels worse today. She noted her breathing treatments were late today this seem to negatively affect her. She continues to cough but not able to produce sputum. Continues to endorse dyspnea on exertion. could not work with therapy today because she felt too short of breath. She endorses very poor appetite and does not like the food she has been served. Review of Systems Review of Systems: All systems reviewed & are unremarkable except as noted in HPI and below Exam Narrative: General: well-nourished, well-appearing 71-year-old female, sitting up at the bedside, comfortable, NARD Neuro: awake, alert and oriented x4, speech clear, no focal neuro deficits noted HEENMT: normocephalic, atraumatic, EOMI, sclerae anicteric Respiratory: Scattered rhonchi, nonlabored breathing, able to speak in complete sentences, no accessory muscle use Cardio: regular rate, regular rhythm with S1-S2 Abdomen: nondistended, normoactive bowel sounds, soft, nontender to palpation Extremities: no edema, erythema, or tenderness to palpation Skin: no rashes or lesions, warm and dry Psych: appropriate mood and affect, judgment and insight intact O
[2022-03-09 13:48] LABS: Sodium 131 mmol/L (137-145)
[2022-03-10] VITALS (14 sets, daily range): BP systolic 117–131; BP diastolic 42–69; PULSE 78–98; RESP 18–20; TEMP 36.2–36.5; O2SAT 91–96
[2022-03-10] MEDS: ALBUTEROL SULFATE NEB 2.5 MG/3 ML INH 5 MG INHALATION ×4 (02:23→20:52)
[2022-03-10] MEDS: IPRATROPIUM BR 0.02% INH SOLN 0.5 MG/2.5 ML VIAL INHALATION ×4 (02:23→20:53)
[2022-03-10] MEDS: methylPREDNISolone SOD SUCC 40 MG VIAL IV PUSH ×2 (06:48→17:53)
[2022-03-10 07:03] LABS: Hematocrit 33.1 % (37.0-47.0); Hemoglobin 10.8 g/dL (12.0-15.0); Mean Corpuscular HGB Conc 32.6 g/dl (32-36); Mean Corpuscular Hemoglobin 33.3 pg (26-34); Mean Corpuscular Volume 102.2 fl (80-100); Mean Platelet Volume 10.3 fl (7.4-10.4); Platelet Count Result 236 k/mm3 (150-375); Red Blood Count 3.24 M/mm3 (4.2-5.4); Red Cell Distribution Width 12.8 % (11.5-14.5); White Blood Count 12.9 K/mm3 (4.5-10.0)
[2022-03-10 07:19] LABS: Anion Gap 5 mmol/L (8-16); Blood Urea Nitrogen 11 mg/dL (7-17); Calcium 8.8 mg/dL (8.4-10.2); Carbon Dioxide 34 mmol/L (22-30); Chloride 93 mmol/L (98-107); Estimated CRCL calculation 68 ml/min; Estimated Glomerular Filt Rate > 60; Glucose 89 mg/dL (65-110); Potassium 3.8 mmol/L (3.4-5.0); Sodium 132 mmol/L (137-145)
[2022-03-10] MEDS: buPROPion HCL SR (12 HR) 150 MG TAB PO ×2 (08:12→17:54)
[2022-03-10] MEDS: guaiFENesin 12 HR 600 MG TABCR 1200 MG PO ×2 (08:13→20:56)
[2022-03-10] MEDS: SACCHAROMYCES BOULARDII 250 MG CAPSULE PO ×2 (08:13→17:53)
[2022-03-10] MEDS: ENOXAPARIN 40 MG/0.4 ML SYRINGE SUB-Q (08:13)
[2022-03-10] MEDS: FLUTICASONE PROPIONATE 0.05% NA SPR 16 GM BTL (*BKC) 1 SPRAY NASAL ×2 (08:14→20:56)
--- NOTE | 2022-03-10 14:54 | PM.IMPN ---
Progress Note: A&P Assessment and Plan (1) Influenza A: Code(s): J10.1 - Influenza due to other identified influenza virus with other respiratory manifestations Status: Acute Assessment and Plan: Patient did receive a flu shot this year. Completed 5 day course of Tamiflu 03/09. Sputum culture with growth of normal oropharyngeal meir. Continue supportive care. Frequent incentive spirometer use recommended. Repeat CXR on 03/09 improved. (2) COPD exacerbation: Code(s): J44.1 - Chronic obstructive pulmonary disease with (acute) exacerbation Status: Acute Assessment and Plan: Precipitated by 1. Continue scheduled bronchodilators. Continue IV solumedrol 40 mg, wean to PO prednisone tomorrow. Continue Prednisone 40 mg x5 days. Completed 5 days of p.o. azithromycin. (3) Chronic respiratory failure with hypoxia, on home oxygen therapy: Code(s): J96.11 - Chronic respiratory failure with hypoxia; Z99.81 - Dependence on supplemental oxygen Status: Acute Assessment and Plan: Baseline oxygen requirement is 2 L at night only. No daytime oxygen requirement. Required up to 4 L supplemental O2 during admission, she has now been weaned to 2 L. Hypoxia felt to be secondary to COPD exacerbation and influenza. She will benefit from home oxygen evaluation prior to discharge. Wean oxygen as tolerated (4) Tachycardia: Code(s): R00.0 - Tachycardia, unspecified Status: Resolved Assessment and Plan: Likely related to hypoxia initially. She had intermittent tachycardia following bronchodilators. PE unlikely and tachycardia has resolved. (5) Chronic hyponatremia: Code(s): E87.1 - Hypo-osmolality and hyponatremia Status: Acute Assessment and Plan: Sodium remaining stable. Continue to monitor sodium levels. (6) Abnormal TSH: Code(s): R79.89 - Other specified abnormal findings of blood chemistry Status: Acute Assessment and Plan: TSH is slightly low with normal T4. patient reports history of known thyroid nodules. Reports she was previously on thyroid medication many years ago but has not taken anything since. Will need repeat TSH with reflex as an outpatient in 4-6 weeks and follow-up with PCP Plan Hopeful discharge tomorrow if continued improvement Subjective Date/time seen: 03/10/22 14:54 Interval history: Date of service: 03/10/2022 Melissa Longoria is a 71-year-old female with a history of COPD, chronic respiratory failure on 2 L supplemental oxygen, tobacco abuse, depression, and GERD who is seen in follow-up for influenza. She is feeling better today. She states her wheezing has improved. She is tolerating more activity with less dyspnea. Cough is productive of yellowish sputum. She did complain of an episode of heart racing this morning after albuterol. She had trouble sleeping last night. Overall feeling improved. Review of Systems Review of Systems: All systems reviewed & are unremarkable except as noted in HPI and below Exam Narrative: General: well-nourished, well-appearing 71-year-old female, sitting up at the bedside, comfortable, NARD Neuro: awake, alert and oriented x4, speech clear, no focal neuro deficits noted HEENMT: normocephalic, atraumatic, EOMI, sclerae anicteric Respiratory: Scattered rhonchi, nonlabored breathing, able to speak in complete sentences, no accessory muscle use Cardio: regular rate, regular rhythm with S1-S2 Abdomen: nondistended, normoactive bowel sounds, soft, nontender to palpation Extremities: no edema, erythema, or tenderness to palpation Skin: no rashes or lesions, warm and dry Psych: appropriate mood and affect, judgment and insight intact Objective Data Vital Signs Vital Signs: Vital Signs - 24 hr 03/09/22 15:47 03/09/22 15:25 03/09/22 21:38 Temperature Pulse Rate 86 84 85 Respiratory Rate 20 20 Blood Pressure Pulse Oximetry 95 Oxygen
[2022-03-11] VITALS (13 sets, daily range): BP systolic 131–140; BP diastolic 50–66; PULSE 70–86; RESP 14–20; TEMP 36.4–36.9; O2SAT 93–97
[2022-03-11] MEDS: ALBUTEROL SULFATE NEB 2.5 MG/3 ML INH 5 MG INHALATION ×5 (02:20→21:06)
[2022-03-11] MEDS: IPRATROPIUM BR 0.02% INH SOLN 0.5 MG/2.5 ML VIAL INHALATION ×5 (02:21→21:07)
[2022-03-11] MEDS: methylPREDNISolone SOD SUCC 40 MG VIAL IV PUSH (05:55)
[2022-03-11 07:23] LABS: Hematocrit 32.9 % (37.0-47.0); Hemoglobin 10.6 g/dL (12.0-15.0); Mean Corpuscular HGB Conc 32.2 g/dl (32-36); Mean Corpuscular Volume 102.5 fl (80-100); Mean Platelet Volume 10.1 fl (7.4-10.4); Platelet Count Result 261 k/mm3 (150-375); Red Blood Count 3.21 M/mm3 (4.2-5.4); Red Cell Distribution Width 12.9 % (11.5-14.5); White Blood Count 10.1 K/mm3 (4.5-10.0)
[2022-03-11 07:31] LABS: Anion Gap 3 mmol/L (8-16); Blood Urea Nitrogen 10 mg/dL (7-17); Calcium 8.3 mg/dL (8.4-10.2); Carbon Dioxide 35 mmol/L (22-30); Chloride 95 mmol/L (98-107); Estimated CRCL calculation 80 ml/min; Estimated Glomerular Filt Rate > 60; Glucose 91 mg/dL (65-110); Potassium 3.5 mmol/L (3.4-5.0); Sodium 133 mmol/L (137-145)
[2022-03-11] MEDS: guaiFENesin 12 HR 600 MG TABCR 1200 MG PO ×2 (09:00→22:46)
[2022-03-11] MEDS: FLUTICASONE PROPIONATE 0.05% NA SPR 16 GM BTL (*BKC) 1 SPRAY NASAL (09:00)
[2022-03-11] MEDS: ENOXAPARIN 40 MG/0.4 ML SYRINGE SUB-Q (09:00)
[2022-03-11] MEDS: buPROPion HCL SR (12 HR) 150 MG TAB PO ×2 (09:00→16:35)
[2022-03-11] MEDS: SACCHAROMYCES BOULARDII 250 MG CAPSULE PO ×2 (09:00→16:35)
--- NOTE | 2022-03-11 09:42 | PCOTNOTE ---
Attempted to see patient this am, however patient refused. Pt reported, I'm exhausted. I'm just exhausted. I was getting 3-6 hours of sleep before this, but I didn't even get that last night. I would fall asleep, and then I'd start coughing. Then I would have to use the bedside commode, and then I couldn't fall asleep again. I'm exhausted. I'm seriously exhausted.
--- NOTE | 2022-03-11 13:07 | PCNFU ---
Nutrition Follow-Up Complete: Suboptimal po intake related to reduced appetite as evidenced by pt report on admission. Goal:PO intake 75% of meals. Pt is meeting current goal. Continue with same goal. Pt current nutrition is Regular. Nutrition recommendation: Switch Ensure compact to Ensure Enlive Last recorded weight is 48.6 kg - stable at this time. Bowel Motility: +BM 03/10 Labs Reviewed: Hgb:10.6, HCT:32.9, Alb:3.4, NA:133, Cr:0.4 Meds Noted: lovenox, zofran Skin: WNL Additional Notes: Pt diet changed to regular, intake good but noted pt is consuming food that family is bringing in from outside. Drinking Ensure but would like Enlive, chocolate. Will switch. Monitor intake, wt, labs, Follow up in 7 days.
--- NOTE | 2022-03-11 15:47 | PM.IMPN ---
Progress Note: A&P Assessment and Plan (1) Influenza A: Code(s): J10.1 - Influenza due to other identified influenza virus with other respiratory manifestations Status: Acute Assessment and Plan: Patient did receive a flu shot this year. Completed 5 day course of Tamiflu 03/09. Sputum culture with growth of normal oropharyngeal meir. Continue supportive care. Frequent incentive spirometer use recommended. Repeat CXR on 03/09 improved. (2) COPD exacerbation: Code(s): J44.1 - Chronic obstructive pulmonary disease with (acute) exacerbation Status: Acute Assessment and Plan: Precipitated by 1. Continue scheduled bronchodilators. Continue IV solumedrol 40 mg, wean to PO prednisone tomorrow. Continue Prednisone 40 mg x5 days. Completed 5 days of PO azithromycin. Hopeful discharge home tomorrow if continued improvement. (3) Chronic respiratory failure with hypoxia, on home oxygen therapy: Code(s): J96.11 - Chronic respiratory failure with hypoxia; Z99.81 - Dependence on supplemental oxygen Status: Acute Assessment and Plan: Baseline oxygen requirement is 2 L at night only. No daytime oxygen requirement. Required up to 4 L supplemental O2 during admission, she has now been weaned to 1 L. Hypoxia felt to be secondary to COPD exacerbation and influenza. She will benefit from home oxygen evaluation prior to discharge. Wean oxygen as tolerated (4) Tachycardia: Code(s): R00.0 - Tachycardia, unspecified Status: Resolved Assessment and Plan: Likely related to hypoxia initially. She had intermittent tachycardia following bronchodilators. PE unlikely and tachycardia has resolved. (5) Chronic hyponatremia: Code(s): E87.1 - Hypo-osmolality and hyponatremia Status: Acute Assessment and Plan: Sodium remaining stable. Continue to monitor sodium levels. (6) Abnormal TSH: Code(s): R79.89 - Other specified abnormal findings of blood chemistry Status: Acute Assessment and Plan: TSH is slightly low with normal T4. patient reports history of known thyroid nodules. Reports she was previously on thyroid medication many years ago but has not taken anything since. Will need repeat TSH with reflex as an outpatient in 4-6 weeks and follow-up with PCP Subjective Date/time seen: 03/11/22 15:47 Interval history: Date of service: 03/11/2022 Melissa Longoria is a 71-year-old female with a history of COPD, chronic respiratory failure on 2 L supplemental oxygen, tobacco abuse, depression, and GERD who is seen in follow-up for influenza. She feels more short of breath today. She is having trouble catching her breath and sources dyspnea on exertion. Biggest complaint today is that she is having trouble sleeping and she feels extremely fatigued. She feels that her worsened symptoms today are triggered by the weather. She denies chest pain or palpitations. Continues to endorse cough productive of yellowish sputum. Denies fevers or chills. Review of Systems Review of Systems: All systems reviewed & are unremarkable except as noted in HPI and below Exam Narrative: General: well-nourished, well-appearing 71-year-old female, sitting up at the bedside, comfortable, NARD Neuro: awake, alert and oriented x4, speech clear, no focal neuro deficits noted HEENMT: normocephalic, atraumatic, EOMI, sclerae anicteric Respiratory: Scattered rhonchi, nonlabored breathing, able to speak in complete sentences, no accessory muscle use Cardio: regular rate, regular rhythm with S1-S2 Abdomen: nondistended, normoactive bowel sounds, soft, nontender to palpation Extremities: no edema, erythema, or tenderness to palpation Skin: no rashes or lesions, warm and dry Psych: appropriate mood and affect, judgment and insight intact Objective Data Vital Signs Vital Signs: Vital Signs - 24 hr 03/10/22 16:30 03/10/22 18:15 03/10/22 20:53
[2022-03-11] MEDS: MELATONIN 5 MG TABLET PO (22:46)
[2022-03-12] VITALS (11 sets, daily range): BP systolic 126–137; BP diastolic 56–58; PULSE 79–105; RESP 14–20; TEMP 36.4–37; O2SAT 90–96
[2022-03-12] MEDS: IPRATROPIUM BR 0.02% INH SOLN 0.5 MG/2.5 ML VIAL INHALATION ×3 (01:47→14:54)
[2022-03-12] MEDS: ALBUTEROL SULFATE NEB 2.5 MG/3 ML INH 5 MG INHALATION ×3 (01:47→14:53)
[2022-03-12] MEDS: ENOXAPARIN 40 MG/0.4 ML SYRINGE SUB-Q (08:15)
[2022-03-12] MEDS: FLUTICASONE PROPIONATE 0.05% NA SPR 16 GM BTL (*BKC) 1 SPRAY NASAL (08:16)
[2022-03-12] MEDS: SACCHAROMYCES BOULARDII 250 MG CAPSULE PO (08:16)
[2022-03-12] MEDS: guaiFENesin 12 HR 600 MG TABCR 1200 MG PO (08:16)
[2022-03-12] MEDS: predniSONE 20 MG TABLET 40 MG PO (08:16)
[2022-03-12] MEDS: buPROPion HCL SR (12 HR) 150 MG TAB PO (08:16)
[2022-03-12 09:26] LABS: Hematocrit 34.1 % (37.0-47.0); Mean Corpuscular HGB Conc 32.3 g/dl (32-36); Mean Corpuscular Volume 99.1 fl (80-100); Mean Platelet Volume 9.6 fl (7.4-10.4); Platelet Count Result 300 k/mm3 (150-375); Red Blood Count 3.44 M/mm3 (4.2-5.4); Red Cell Distribution Width 13.1 % (11.5-14.5); White Blood Count 12.5 K/mm3 (4.5-10.0)
[2022-03-12 09:36] LABS: Anion Gap 3 mmol/L (8-16); Blood Urea Nitrogen 9 mg/dL (7-17); Calcium 8.2 mg/dL (8.4-10.2); Carbon Dioxide 33 mmol/L (22-30); Chloride 93 mmol/L (98-107); Estimated CRCL calculation 83 ml/min; Estimated Glomerular Filt Rate > 60; Glucose 129 mg/dL (65-110); Potassium 3.6 mmol/L (3.4-5.0); Sodium 129 mmol/L (137-145)
--- NOTE | 2022-03-12 15:59 | PM.DS ---
DS: Admitting Diagnosis Discharge Date 03/12/2022 Admitting Diagnosis influenza DS: Discharge Diagnosis Discharge Diagnosis (1) Influenza A: Code(s): J10.1 - Influenza due to other identified influenza virus with other respiratory manifestations Status: Acute Assessment and Plan: Patient did receive a flu shot this year. Completed 5 day course of Tamiflu 03/09. Sputum culture with growth of normal oropharyngeal meir. Supportive care provided. Frequent incentive spirometer use recommended. Repeat CXR on 03/09 showed improvement. (2) COPD exacerbation: Code(s): J44.1 - Chronic obstructive pulmonary disease with (acute) exacerbation Status: Acute Assessment and Plan: Precipitated by 1. Improved with bronchodilators and IV solumedrol which was slowly weaned. Will continue PO Prednisone 40 mg x5 days. Completed 5 days of PO azithromycin. Continue home inhalers (3) Chronic respiratory failure with hypoxia, on home oxygen therapy: Code(s): J96.11 - Chronic respiratory failure with hypoxia; Z99.81 - Dependence on supplemental oxygen Status: Acute Assessment and Plan: Baseline oxygen requirement is 2 L at night only. No daytime oxygen requirement. Required up to 4 L supplemental O2 during admission and was able to be weaned to room air. Home O2 eval completed on 03/12 and pt has no daytime or activity oxygen requirement. Continue 2 L at night. (4) Tachycardia: Code(s): R00.0 - Tachycardia, unspecified Status: Resolved Assessment and Plan: Likely related to hypoxia initially. She had intermittent tachycardia following bronchodilators. PE unlikely and tachycardia resolved. (5) Chronic hyponatremia: Code(s): E87.1 - Hypo-osmolality and hyponatremia Status: Acute Assessment and Plan: Sodium remained stable consistent with baseline. (6) Abnormal TSH: Code(s): R79.89 - Other specified abnormal findings of blood chemistry Status: Acute Assessment and Plan: TSH is slightly low with normal T4. patient reports history of known thyroid nodules. Reports she was previously on thyroid medication many years ago but has not taken anything since. Will need repeat TSH with reflex as an outpatient in 4-6 weeks and follow-up with PCP DS: Summary Hospital Course Hospital Course: date of admission: 03/04/2022 date of discharge: 03/12/2022 Melissa Longoria ?is a 71-year-old female with a history of COPD, chronic respiratory failure on 2 L supplemental oxygen,? tobacco abuse, depression, and GERD who presented to the emergency department on 03/04/2022 with complaints of increased shortness of breath. On presentation to the ED, she was tachycardic and tachypneic and required 3 L supplemental oxygen. WBC 11.6, sodium 133, influenza a PCR positive, and CXR showed emphysema. She was admitted to the hospitalist service for further evaluation and management. Please see above for further details. She completed a course of Tamiflu and supportive care was provided for influenza. She was treated for COPD exacerbation with IV Solu-Medrol which was eventually weaned to p.o. prednisone which she will continue to complete a 5 day course as an outpatient. She had symptomatic improvement and oxygen requirements decreased until patient was able to be weaned to room air. Home O2 eval completed on day of discharge and patient has no oxygen requirement at rest or with activity. Will continue her baseline 2 L supplemental oxygen at night. No oxygen required at rest. Patient did have persistent cough but overall with symptomatic improvement and she felt comfortable with plans for discharge home. She will follow-up with her PCP and her vice president talent management as an outpatient. discussed with both patient and her son worrisome signs and symptoms for which to return and she was educated on her medications. She was discharged in hemodynamically s
--- NOTE | 2022-03-12 16:08 | PCRCNOTE ---
HOME O2 EVAL COMPLETE. PATIENT REQUIRES NO HOME O2 WITH REST OR ACTIVITY. PATIENT HAS NOC HOME O2 OF 2LPM.
== END 2022-03-12 17:00 | disposition home or self-care (01) | DRG 194 ==
LOC: ANHED 07:57 → ANH3MEDSUR 10:03
PROVIDERS: Physician Assistant; Admitting Provider Internal Medicine; Emergency Provider Emergency Medicine; PCP Family Medicine; Visit Provider Family Medicine
DX: J10.1 Influenza due to other identified influenza virus with other respiratory manifestations (principal); E87.1 Hypo-osmolality and hyponatremia; J96.11 Chronic respiratory failure with hypoxia; J43.9 Emphysema, unspecified; Z20.822 Contact with and (suspected) exposure to COVID-19; R00.0 Tachycardia, unspecified; R79.89 Other specified abnormal findings of blood chemistry; K21.9 Gastro-esophageal reflux disease without esophagitis; F32.A Depression, unspecified; Z99.81 Dependence on supplemental oxygen; Z85.828 Personal history of other malignant neoplasm of skin; Z98.42 Cataract extraction status, left eye; Z98.41 Cataract extraction status, right eye; Z87.891 Personal history of nicotine dependence
CPT/HCPCS: 36415; 36600; 71046; 80048; 80053; 82375; 82570; 82805; 83050; 83735; 84145; 84295; 84300; 84439; 84443; 84480; 85025; 85027; 86140; 87070; 87205; 87636; 93005; 94618; 94640; 94667; 94668; 96361; 96372; 96374; 96375; 96376; 97116; 97161; 97165; 97535; 99285; A9270; G0378; J0456; J1650; J2920; J2930; J7030; J7512

== ENCOUNTER 2022-04-25 21:43 | Inpatient (IN) | payer MEDICARE, SELFPAY ==
[2022-04-25] VITALS (9 sets, daily range): BP systolic 129–142; BP diastolic 52–70; PULSE 77–108; RESP 22–24; TEMP 36.7; O2SAT 93–100
--- NOTE | ~2022-04-25 | XR_ITS ---
Portable chest x-ray Comparison: 03/09/2022 Clinical History: Pneumonia Findings: Suspected COPD. Stable calcified right upper lobe granuloma and right hilar lymph nodes. L ungs are otherwise clear. Cardiomediastinal silhouette is stable. Bones and soft tissues are unremar kable. Impression: No acute abnormality. COPD. Evidence of prior exam mild disc disease. Reviewed, dictated and finalized at location . [facility] COACH Impression: No acute abnormality. COPD. Evidence of prior exam mild disc disease.
--- NOTE | ~2022-04-25 | CT_ITS ---
EXAMINATION: CTA chest PE protocol DATE: 04/26/2022 00:07 INDICATION: Hypoxia, tachycardia and chest pain TECHNIQUE: Computed tomography (CT) pulmonary angiogram of the chest was performed with 100 mL Omnipa que-350 intravenous contrast. Additional 3D reconstructions utilizing coronal maximum intensity proje ction (MIP) were performed. Automated exposure control and iterative reconstruction technique were em ployed. The dose-length product was 151.43 mGy-cm. COMPARISON: None FINDINGS: Excellent contrast opacification of the pulmonary arteries. There is mild streak artifact from dense extending from the left subclavian vein to the right atrium. Mild scattered respiratory motion artifa ct which does not significantly limit evaluation. No pulmonary embolism. Severe emphysema. Small bolivar on of patchy consolidation in the posterior basilar and superior segment of the left lower lobe, the posterior segment of the left upper lobe and the posterior segment of the right lower lobe consistent with multifocal pneumonia. There is a new more nodular opacity superior segment of the right lower l obe. No pulmonary edema or pleural effusion. Heart size is normal. No pericardial effusion. Thoracic aorta is normal in caliber with no dissection. There is enlargement of the central pulmonary arteries consistent with pulmonary arterial hypertension. Calcified right upper lobe nodule along with calcif ied right hilar and mediastinal lymph nodes and multiple splenic calcific lesions, all consistent wit h old granulomatous disease. No pathologically enlarged thoracic lymphadenopathy. Likely benign 8 mm low-density and 4 mm rim calcified right thyroid nodules. Mild thoracic spondylosis. IMPRESSION: 1. No pulmonary embolism. 2. Multifocal pneumonia in the left upper, left lower and right lower lobes. 3. New 6 mm nodule in the superior segment of the right lower lobe. Recommend 3 month follow-up low-d ose noncontrast chest CT. 4. Severe emphysema with enlargement of the central pulmonary arteries consistent with pulmonary jaylene rial hypertension. Reviewed, dictated and finalized at location A. MAKER IMPRESSION: 1. No pulmonary embolism. 2. Multifocal pneumonia in the left upper, left lower and right lower lobes. 3. New 6 mm nodule in the superior segment of the right lower lobe. Recommend 3 month follow-up low-dose noncontrast chest CT. 4. Severe emphysema with enlargement of the central pulmonary arteries consiste nt with pulmonary arterial hypertension.
--- NOTE | ~2022-04-25 | XR_ITS ---
EXAMINATION: XR chest 2V DATE: 05/03/2022 12:56 INDICATION: Pneumonia TECHNIQUE: PA and lateral views of the chest are obtained. COMPARISON: 04/29/2022 FINDINGS: The lungs are hyperinflated but free of acute opacities. No pleural effusion or pneumothora x. The cardiomediastinal silhouette is normal. There is moderate thoracic spondylosis. IMPRESSION: 1. No acute cardiopulmonary abnormality. Reviewed, dictated and finalized at location B. 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
--- NOTE | ~2022-04-25 | XR_ITS ---
Portable chest x-ray Comparison: 04/26/2022 Clinical History: Pneumonia, COPD Findings: Lungs are clear, without focal consolidation or pleural effusion. Possible COPD pattern. C alcified granulomas and lymph nodes are unchanged. Cardiomediastinal silhouette is stable. Bones and soft tissues are unremarkable. Impression: No acute pulmonary airspace disease. COPD. Evidence of prior granulomatous disease. Reviewed, dictated and finalized at location . 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 COPD. Evidence of prior granulomatous disease.
--- NOTE | 2022-04-25 22:06 | ECG_ITS ---
Measurements Intervals [place] Rate: 85 P: 79 AR: 115 QRS: 89 QRSD: 102 T: 83 QT: 380 QTc: 452 Interpretive Statements SINUS RHYTHM WITH SHORT AR INTERVAL WITH OCCASIONAL VENTRICULAR PREMATURE COMPLEXES WITH OCCASIONAL SUPRAVENTRICULAR PREMATURE COMPARED TO ECG 03/04/2022 04:24:31 PVCS ARE CURRENTLY SEEN Electronically Signed On 04-26-2022 13:06:53 [employer] ENGINE[employer] by Jayce Gomez M.D.
--- NOTE | 2022-04-25 22:11 | ED.SOB ---
HPI - SOB/Dyspnea General Chief Complaint: Shortness of Breath/Dyspnea <Jaquelin Cline PA-C - Last Filed: 04/26/22 01:29> Stated Complaint: dyspnea <Jaquelin Cline PA-C - Last Filed: 04/26/22 01:29> Time Seen by Provider: 04/25/22 21:59 <Jaquelin Cline PA-C - Last Filed: 04/26/22 01:29> History of Present Illness HPI Narrative: 71-year-old female with history of COPD here for evaluation of chest tightness tonight. Patient states that the pain is described as a band of tightness and pressure across her upper chest that came on while she was ambulating. She took her vitals at that time and noticed that her O2 was in the 80s and her heart rate was 130; states she normally only wears O2 at bedtime. She has had a cough productive of yellow sputum which is new for her. Also reports increased dyspnea over the past several days, unrelieved by her DuoNeb inhalers. No leg swelling, nausea, vomiting. <Jaquelin Cline PA-C - Last Filed: 04/26/22 01:29> Related Data Home Medications: Home Medications Medication Instructions Recorded Confirmed albuterol sulfate 90 mcg/actuation 1 puff inhalation Q4-6H PRN 06/07/19 04/26/22 aerosol inhaler (ProAir HFA) Shortness Of Breath bupropion HCl 150 mg tablet,12 hr 150 mg PO BID 06/07/19 04/26/22 sustained-release coenzyme Q10 200 mg capsule (Co 200 mg PO DAILY 09/20/20 04/26/22 Q-10) budesonide 160 mcg-glycopyr 9 2 inh inhalation QAM AND QPM 03/04/22 04/26/22 mcg-formot 4.8 mcg/actuation HFA inhaler ascorbate calcium (vitamin C) 500 500 mg PO DAILY 04/26/22 04/26/22 mg tablet cholecalciferol (vitamin D3) 50 2,000 unit PO DAILY 04/26/22 04/26/22 mcg (2,000 unit) capsule (Vitamin D3) <ROYCE Herrera Last Filed: 04/26/22 01:29> Allergies/Adverse Reactions: Allergies Allergy/AdvReac Type Severity Reaction Status Date / Time ciprofloxacin [From Cipro] AdvReac Nausea Verified 04/26/22 05:44 <Jaquelin Cline PA-C - Last Filed: 04/26/22 01:29> Review of Systems Review of Systems: Gen: Denies fevers or chills Eyes: Denies eye pain or visual change ENT: Denies congestion Respiratory: Reports shortness of breath and cough CV: Reports chest pain GI: Denies abdominal pain nausea, emesis or diarrhea : denies burning, urgency, frequency or hematuria Musculoskeletal: Denies back pain or muscle pain Neuro: Denies numbness, tingling, weakness or focal weakness Skin: Denies rash Except as documented, all other systems reviewed and negative <Jaquelin Cline PA-C - Last Filed: 04/26/22 01:29> [facility] Past Medical History Medical History: Medical History Chronic hyponatremia Chronic obstructive pulmonary disease Chronic respiratory failure with hypoxia, on home oxygen therapy Depression GERD (gastroesophageal reflux disease) Skin cancer Status post excision from the nose requiring plastic surgery, also removed from the arms and back Thyroid nodule Tobacco abuse <Jaquelin Cline PA-C - Last Filed: 04/26/22 01:29> Surgical History Surgical History: Surgical History History of bilateral cataract extraction (2007) History of breast biopsy With benign pathology History of rhinoplasty Status post hysteroscopic polypectomy <Jaquelin Cline PA-C - Last Filed: 04/26/22 01:29> Family History Family History: Family History (Updated 04/26/22 @ 05:20 by Val Pimentel RN) Father Polycythemia vera Leukemia Sibling Breast cancer Emphysema of lung Mother Emphysema of lung <Jaquelin Cline PA-C - Last Filed: 04/26/22 01:29> Social History Social History: Social History (Updated 03/04/22 @ 21:29 by Stephy Diaz PA-C) Social History: Surrogate medical decision maker: John
[2022-04-25] MEDS: ALBUTEROL SULFATE NEB 2.5 MG/3 ML INH INHALATION (22:13)
[2022-04-25] MEDS: IPRATROPIUM BR 0.02% INH SOLN 0.5 MG/2.5 ML VIAL INHALATION (22:14)
[2022-04-25 22:31] LABS: Basophils Absolute Auto 0.1 K/mm3 (0.0-0.1); Basophils Percent Auto 0.8 % (0.2-1.2); Eosinophils Absolute Auto 0.4 K/mm3 (0-0.3); Eosinophils Percent Auto 5.5 % (0-4.4); Hematocrit 37.9 % (37.0-47.0); Hemoglobin 12.1 g/dL (12.0-15.0); Immature Granulocyte Absolute 0.02 K/mm3 (0.00-0.031); Immature Granulocyte Percent A 0.3 % (0-0.5); Lymphocytes Absolute Auto 2.13 K/mm3 (0.9-3.2); Lymphocytes Percent Auto 29.5 % (18.3-44.2); Mean Corpuscular HGB Conc 31.9 g/dl (32-36); Mean Corpuscular Hemoglobin 32.9 pg (26-34); Mean Platelet Volume 10.1 fl (7.4-10.4); Monocytes Absolute Auto 0.6 K/mm3 (0.1-0.6); Monocytes Percent Auto 8.3 % (2.6-8.5); Neutrophils Percent Auto 55.6 % (45.5-73.1); Platelet Count Result 246 k/mm3 (150-375); Red Blood Count 3.68 M/mm3 (4.2-5.4); Red Cell Distribution Width 13.1 % (11.5-14.5); White Blood Count 7.2 K/mm3 (4.5-10.0)
[2022-04-25 22:41] LABS: Alanine Aminotransferase 25 U/L (6-35); Albumin Level 4.3 g/dL (3.5-5.1); Alkaline Phosphatase 55 U/L (38-126); Anion Gap 6 mmol/L (8-16); Aspartate Amino Transferase 33 U/L (14-36); Bilirubin,Total 0.3 mg/dL (0.2-1.3); Blood Urea Nitrogen 15 mg/dL (7-17); Calcium 8.9 mg/dL (8.4-10.2); Carbon Dioxide 27 mmol/L (22-30); Chloride 100 mmol/L (98-107); Estimated CRCL calculation 64 ml/min; Estimated Glomerular Filt Rate > 60; Glucose 131 mg/dL (65-110); INR 0.9; Potassium 3.9 mmol/L (3.4-5.0); Prothrombin Time 12.2 Seconds (11.1-14.7); Sodium 133 mmol/L (137-145)
[2022-04-25 22:42] LABS: Partial Thromboplastin Time 32.1 SECONDS (22.3-36.8)
[2022-04-25 22:54] LABS: NT Pro B Type Natriuretic Pept 413 pg/mL (19.9-100); Troponin I < 0.012 ng/mL (0.000-0.034)
[2022-04-25] MEDS: NITROGLYCERIN SL 0.4 MG TABLET SUBLINGUAL (22:58)
[2022-04-25] MEDS: ASPIRIN 81 MG CHEWABLE TABLET 324 MG PO (22:58)
[2022-04-25 23:01] LABS: Alveolar/Arterial O2 Gradient 77.2 mmHg; Base Excess ABG 2.3 mEq/l (+/-2.0); Fractional Inspired Oxygen 28 %; HCO3 ABG 27.5 mEq/l (22.0-26.0); Oxygen Saturation ABG 93.8 % (95.0-100.0); Oxyhemoglobin 92.1 % THb (90.0-100.0); PCO2 ABG 45.1 mmHg (35.0-45.0); PO2 ABG 69.2 mmHg (80.0-100.0); PO2 FiO2 Ratio Arterial Blood 2.47 %; Total Hemoglobin 12.3 g/dL (12.0-18.0); pH ABG 7.403 (7.350-7.450)
[2022-04-25 23:02] LABS: Device NASAL CANNULA; Modified Allen's Test Pass; Site Drawn LEFT RADIAL
[2022-04-25 23:25] LABS: Influenza A QL RT-PCR Negative (Negative); Influenza B QL RT-PCR Negative (Negative); SARS-CoV-2 RNA PCR Negative
[2022-04-26] VITALS (36 sets, daily range): BP systolic 111–125; BP diastolic 50–71; PULSE 70–105; RESP 14–25; TEMP 36.2–36.7; O2SAT 91–100; BMI 19.5
--- NOTE | 2022-04-26 | ECHO_ITS ---
Patient Info Name: Melissa Longoria Age: 71 years : 1950 Gender: Female Ht: 62 in Wt: 106 lbs BSA: 1.45 m2 HR: 73 bpm BP: 123 / 51 mmHg Heart Rhythm: Sinus Rhythm Technical Quality: Good Exam Date: 04/26/2022 11:37 AM Exam Location: [facility] Pulmonary Patient Status: Outpatient Admit Date: 04/26/2022 Staff Ordering Physician: Jayce Gomez MD Nip Wrapper: Kezia Berry RDCS Attending Provider: Babita Carvalho MD Referring Physician: Jason HIGH; Exam Type: CA echo doppler color flow Study Info Indications - EVALUATE FOR ISCHEMIC WALL MOTHION ABNORMALITY R07.9 - Chest pain, unspecified Complete two-dimensional, color flow and Doppler transthoracic echocardiogram is performed. Summary 1. Complete two-dimensional, color flow and Doppler transthoracic echocardiogram is performed. 2. Normal left ventricular size with preserved systolic function no obvious ischemic wall motion abnormalities were seen. 3. No significant valvular dysfunction. 4. Persistence of Chiari network noted in the right atrium. Left Ventricle Left ventricular chamber dimension is normal. Left ventricular systolic function is normal, estimated at 50-55%. The left ventricular diastolic function is normal. Right Ventricle Right ventricular chamber dimension is normal. Left Atria Left atrial chamber dimension is normal. Right Atria Right atrial chamber dimension is normal. Aortic Valve The aortic valve is normal. Pulmonic Valve The pulmonic valve is not well visualized. Mitral Valve The mitral valve has normal leaflets. There is no mitral valve regurgitation. Tricuspid Valve The tricuspid valve leaflets are normal. Pericardium/Pleural The pericardium appears normal. Aorta The aortic root size at the sinus of Valsalva is normal. Left Ventricular Outflow Tract Name Value Normal LVOT 2D LVOT Diameter 1.9 cm LVOT Doppler LVOT Peak Gradient 4 mmHg LVOT Mean Gradient 2 mmHg LVOT VTI 19 cm LVOT VTI/AV VTI Ratio 0.9 LVOT Stroke Volume 56 ml LVOT CO 4.5 l/min LVOT CI 3.1 l/min/m2 Pulmonic Valve Name Value Normal RVOT Doppler RVOT Peak Gradient 2 mmHg PV Doppler PV Peak Gradient 2 mmHg Mitral Valve Name Value Normal MV Doppler MV Decel Tensas
[2022-04-26] MEDS: SODIUM CHLORIDE 0.9% IV 1,000 ML 150 ML IV CONT (01:35)
[2022-04-26] MEDS: IPRATROPIUM BR 0.02% INH SOLN 0.5 MG/2.5 ML VIAL INHALATION ×4 (03:19→21:40)
[2022-04-26] MEDS: ALBUTEROL SULFATE NEB 2.5 MG/3 ML INH INHALATION ×4 (03:19→21:41)
[2022-04-26 03:45] LABS: Troponin I < 0.012 ng/mL (0.000-0.034)
--- NOTE | 2022-04-26 05:17 | ADMGEN ---
This patient, Melissa Longoria, was admitted to [facility] Surg Room 331-01. Patient/family oriented to hospital policies and general routines including ID bracelet, bed and alarms, visiting hours, pain management, procedures, bathroom and other care routines, personal items, smoking policy, room service/diet, and visiting hours. Information on how to activate the Rapid Response Team has been discussed. Patient/Family are encouraged to report perceived risks to care and to ask questions if they do not understand what they are told or what they should do.
[2022-04-26 06:56] LABS: Troponin I < 0.012 ng/mL (0.000-0.034)
--- NOTE | 2022-04-26 07:32 | ECG_ITS ---
Measurements Intervals Ashley Rate: 69 P: 80 RI: 136 QRS: 92 QRSD: 101 T: 95 QT: 420 QTc: 453 Interpretive Statements SINUS RHYTHM BORDERLINE RIGHT AXIS DEVIATION [QRS AXIS > 90] BORDERLINE ECG COMPARED TO ECG 04/25/2022 22:31:21 VENTRICULAR ECTOPICS ARE NOT SEEN Electronically Signed On 04-26-2022 13:12:17 ASSISTANT COUNTY ENGINEER by Jayce Gomez M.D.
[2022-04-26] MEDS: ASCORBIC ACID 500 MG TABLET PO (08:49)
[2022-04-26] MEDS: buPROPion HCL SR (12 HR) 150 MG TAB PO ×2 (08:49→17:58)
[2022-04-26] MEDS: CHOLECALCIFEROL 1,000 UNITS TABLET 2000 UNITS PO (08:49)
--- NOTE | 2022-04-26 10:18 | PM.CNPUL ---
Assessment and Plan Assessment and plan (1) COPD exacerbation: Code(s): J44.1 - Chronic obstructive pulmonary disease with (acute) exacerbation Status: Acute Assessment and Plan: 71-year-old with a history of GOLD grade 3 group E COPD, PFTs 12/12/2020 with an FEV1 of 0.74 L, 36% predicted and DLCO 35% predicted, Uses 2 L oxygen at night. Severe apical predominant centrilobular emphysema on the 1st CT scan in our system from 06/07/2019. COPD exacerbation 02/17/2022 seen in the emergency department and discharged on prednisone. Admitted to the hospital 03/04/2022 with influenza A and COPD exacerbation treated with Tamiflu, azithromycin and steroids. Home O2 assessment With no oxygen at rest or with ambulation. patient tells me she completely recovered. currently she presents with 2 days worsening shortness of breath, chest tightness, dry cough, worsening dyspnea on exertion, worsening hypoxia . She has wheezes on exam. I will treat this as a moderate COPD exacerbation. solumedrol 40 IV Q 6 horus, Albuterol 2.5 mg nebulized Q 4 hours, ipratropium 0.5 mg nebulized Q 4 hours. patient is having difficulty producing phlegm and I will initiate guaifenesin ER 600 mg p.o. q.12 hours. Patient has no evidence of hypercarbic respiratory failure per her ABG of 7.40/45/70 on 2 L nasal cannula. I will check an alpha 1 phenotype and an alpha 1 level. Will follow with you. (2) Multifocal pneumonia: Code(s): J18.9 - Pneumonia, unspecified organism Status: Acute Assessment and Plan: Patient with no fever, chills, rigors, white blood cell count 7.2, CT angiogram of the chest showed no pulmonary embolism, severe centrilobular apical predominant emphysema, small regions of patchy consolidative infiltrates posterior basal superior segment left lower lobe posterior segment left upper lobe and posterior segment right lower lobe (new from 11/28/2020). patient had influenza a on 03/04/2022 and it is unclear if these infiltrates are residual from her influenza a or if they represent a new pneumonia. COVID and influenza RT PCR studies negative now. Blood cultures are pending. Agree with ceftriaxone and azithromycin. History of Present Illness History of Present Illness Consult date: 04/26/22 Chief complaint: Multifocal Pneumonia Narrative: 04/26/2022: This is a new pulmonary consult for COPD exacerbation and pneumonia 71-year-old with a history of GOLD grade 3 group E COPD, PFTs 12/12/2020 with an FEV1 of 0.74 L, 36% predicted and DLCO 35% predicted, Uses 2 L oxygen at night. Severe apical predominant centrilobular emphysema on the 1st CT scan in our system from 06/07/2019. COPD exacerbation 02/17/2022 seen in the emergency department and discharged on prednisone. Admitted to the hospital 03/04/2022 with influenza A and COPD exacerbation treated with Tamiflu, azithromycin and steroids. Home O2 assessment With no oxygen at rest or with ambulation. patient tells me she completely recovered. At baseline. Patient states she is able to complete her activities of daily living without having to stop for shortness of breath. She is rather sedentary though. She thinks she could walk 1 [address]. She has a daily dry cough. Patient smoked tobacco from age 12 to February 2022 at 1 and half packs per day for 89 pack years. Patient was exposed to secondhand smoke from both of her parents. Patient was exposed to secondhand smoke from her significant other's until 2019. 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 Patient presented to the emergency department on 04/25/2022 with Two day history of dyspnea on exertion. On the day of admission she developed worsening dyspnea on exertion with chest tightness And wheezing. Patient denied fever, chills, rigors, change in her p
--- NOTE | 2022-04-26 10:44 | PM.IMHP ---
H&P: HPI History of Present Illness Date/Time: 04/26/22 10:44 Chief Complaint: chest pain and shortness of breath Narrative: ED-HPI Narrative: ? ? ? 71-year-old female with history of COPD here for evaluation of chest tightness tonight.? Patient states that the pain is described as a band of tightness and pressure across her upper chest that came on while she was ambulating.? She took her vitals at that time and noticed that her O2 was in the 80s and her heart rate was 130; states she normally only wears O2 at bedtime.? She has had a cough productive of yellow sputum which is new for her.? Also reports increased dyspnea over the past several days, unrelieved by her DuoNeb inhalers.? No leg swelling, nausea, vomiting. 71-year-old female with long history of smoking history of COPD chronic respiratory failure home oxygen 2 L patient stated his CP had been shortness of breath and short winded with ambulation her symptoms worsening and then she developed chest pain describing as a tight band around her chest presented emergency depart further evaluation, patient 3 sets cardiac enzymes are negative no acute changes on EKG patient seen by Cardiology and not suspect acute coronary syndrome however cardiac echo is ordered and further recommendation to follow, CT scan of the chest showed multifocal pneumonia and patient has been started on and ceftriaxone and azithromycin, on lung exam there are no wheezing however patient does have a history of smoking will consult pulmonology for further recommendation, will continue present management and further recommendation to follow. patient admitted as inpatient patient will stay in the hospital 2 midnights with pneumonia Review of Systems Constitutional: Constitutional: Reports no additional constitutional complaints [facility] Past Medical History Medical History Chronic hyponatremia Chronic obstructive pulmonary disease Chronic respiratory failure with hypoxia, on home oxygen therapy Depression GERD (gastroesophageal reflux disease) Skin cancer Status post excision from the nose requiring plastic surgery, also removed from the arms and back Thyroid nodule Tobacco abuse Surgical History Surgical History History of bilateral cataract extraction (2007) History of breast biopsy With benign pathology History of rhinoplasty Status post hysteroscopic polypectomy Family History Family History (Updated 04/26/22 @ 05:20 by Val Pimentel RN) Father Polycythemia vera Leukemia Sibling Breast cancer Emphysema of lung Mother Emphysema of lung Social History Social History (Updated 03/04/22 @ 21:29 by Stephy Diaz PA-C) Social History: Surrogate medical decision maker: Jonathon Longoria, kristen. Code status: Full code. Smoking packs per day: 2 Smoking cigarettes per day: 40.0 Years smoked: 50 Smoking pack-years: 100.00 Smoking status: Former smoker Tobacco type: cigarettes Second hand tobacco smoke exposure: Yes Smoking end date: 10/25/20 Alcohol intake: never Drinks per week: 0 Substance use: never Substance use type: does not use Lack of Transportation: No Lack of Food: Never True Current Housing: I Have Housing Concerned About Future Housing: No Difficulty Paying Gas/Electric Bills: No Difficulty Paying for Meds: No Currently Unemployed: No Education: High School Diploma/GED Difficulty w/ Childcare or Family Care: No Living arrangements: alone Additional living arrangements comments: Lives in [place]. Has 3 adult children. Her daughter lives in [place] her 2 sons live locally. Occupation/Education: retired Spiritual care concerns: No Agree to blood products: Yes Meds Home Medications and Allergies Home Medications Medication Instructions Recorded Cyndi
--- NOTE | 2022-04-26 10:59 | PM.CNCAR ---
Assessment and Plan Assessment and plan (1) Chest pain: Code(s): R07.9 - Chest pain, unspecified Status: Acute Plan This is a 71-year-old lady with obvious severe chronic obstructive lung disease with history of smoking in the past. She enters the hospital with some coughing hypoxemia and tachycardia. Her CT scan shows a multi lobar pneumonia process. There is no objective evidence of acute myocardial injury her EKG is normal in her troponin levels are also unremarkable. I will have another echocardiogram done to ensure that there are no obvious ischemic wall motion abnormalities. If that looks unremarkable I do not believe I will recommend initiating an ischemia workup at this time. Obviously she is a very poor candidate for invasive procedures given her chronic severe underlying lung disease. Jayce Gomez MD [facility] History of Present Illness History of Present Illness Consult date/time: 04/26/22 10:59 Consult reason: chest pain Reason For Visit: Multifocal Pneumonia Narrative: This is a 71-year-old woman I am seeing at the request of the hospitalist because of chest pain. She is unknown to me prior to this consultation patient has been seen in room 331 and her chart has been reviewed. She came to the hospital yesterday because of symptoms of coughing and breathlessness that began couple of days prior to presentation. She also had the sensation of some pain in the center of her chest that she describes as a pressure or a bandlike sensation in the low substernal region. The patient was seen in the emergency room and admitted to the hospital. Her evaluation thus far appears to show evidence of a multilobe pneumonia process as well as known history of underlying severe emphysema/COPD. The patient has a previous long history of heavy cigarette smoking which she discontinued a number of years ago and follows with pulmonology as an outpatient. She says she is not known to have any significant cardiac problems prior to this as far she is aware. The patient describes no history of peripheral vascular disease. She was sleeping comfortably in the room when I entered the room to see her upon awakening she startled but upon relaxing is feeling well and does not have any other complaints. She states she was particularly concerned with these symptoms of shortness of breath and coughing and she does have an oximeter at home her oxygen saturations were in the 80s and she was tachycardic so she was concerned enough to come to the hospital to be evaluated. Her electrocardiogram is entirely normal and does not show any changes in comparison to previous tracings in the chart her troponin levels are also normal x3 sets. She previously had an echocardiogram done in 2019 she thinks it was ordered by her traffic circuit engineer. She had normal left ventricular systolic function at that time without any obvious wall motion abnormalities. There was suggestion that she might have a small patent foramen ovale on the Doppler imaging. She says she was sent to see another parking officer elsewhere to consult about the possibility that she might have a PFO. Review of Systems Constitutional: Constitutional: Reports no additional constitutional complaints Eyes: Eyes: Reports no additional eye complaints ENT: Reports system reviewed and no additional complaints, except as documented Cardiovascular: Cardiovascular: Reports as per HPI and Reports chest pain Respiratory: Respiratory: Reports cough and Reports dyspnea Gastrointestinal: Gastrointestinal: Reports no additional gastrointestinal complaints Musculoskeletal: Musculoskeletal: Reports no additional musculoskeletal complaints Integumentary/Breasts: Skin/Breast: Reports system reviewed and no additional complaints, except as docu Neurologic: Reports system reviewed and no additional complaints, except as documented Endocrine: Endocrine: Reports no additional endocrine complaints Hematologic/Lymphatic:
[2022-04-26] MEDS: methylPREDNISolone SOD SUCC 40 MG VIAL IV PUSH ×2 (14:08→17:58)
[2022-04-26] MEDS: guaiFENesin 12 HR 600 MG TABCR PO ×2 (14:08→21:07)
--- NOTE | 2022-04-26 19:03 | PC.NURSE ---
Pt has been resting in bed. Pt has had no complaints and expresses no needs at this time. Pt has participated and contributed in plan of care. Pt is A&O4. Will continue to monitor pt.
[2022-04-26] MEDS: cefTRIAXone 2 GM in SODIUM CHLORIDE 0.9% IV 100 ML 200 ML IVPB (22:02)
[2022-04-27] VITALS (19 sets, daily range): BP systolic 103–111; BP diastolic 48–61; PULSE 64–98; RESP 16–20; TEMP 36.2–36.3; O2SAT 86–99
[2022-04-27] MEDS: methylPREDNISolone SOD SUCC 40 MG VIAL IV PUSH ×2 (01:38→05:44)
[2022-04-27] MEDS: ALBUTEROL SULFATE NEB 2.5 MG/3 ML INH INHALATION ×5 (02:43→21:19)
[2022-04-27] MEDS: IPRATROPIUM BR 0.02% INH SOLN 0.5 MG/2.5 ML VIAL INHALATION ×5 (02:43→21:20)
[2022-04-27 06:48] LABS: Basophils Percent Auto 0.1 % (0.2-1.2); Hematocrit 34.8 % (37.0-47.0); Hemoglobin 11.1 g/dL (12.0-15.0); Immature Granulocyte Absolute 0.04 K/mm3 (0.00-0.031); Immature Granulocyte Percent A 0.5 % (0-0.5); Lymphocytes Absolute Auto 1.02 K/mm3 (0.9-3.2); Lymphocytes Percent Auto 13.7 % (18.3-44.2); Mean Corpuscular HGB Conc 31.9 g/dl (32-36); Mean Corpuscular Hemoglobin 31.9 pg (26-34); Mean Platelet Volume 10.4 fl (7.4-10.4); Monocytes Absolute Auto 0.2 K/mm3 (0.1-0.6); Monocytes Percent Auto 2.3 % (2.6-8.5); Neutrophils Absolute Auto 6.2 K/mm3 (1.3-6.7); Neutrophils Percent Auto 83.4 % (45.5-73.1); Platelet Count Result 230 k/mm3 (150-375); Red Blood Count 3.48 M/mm3 (4.2-5.4); Red Cell Distribution Width 12.9 % (11.5-14.5); White Blood Count 7.5 K/mm3 (4.5-10.0)
[2022-04-27 07:09] LABS: Anion Gap 4 mmol/L (8-16); Blood Urea Nitrogen 13 mg/dL (7-17); Calcium 9.2 mg/dL (8.4-10.2); Carbon Dioxide 29 mmol/L (22-30); Chloride 99 mmol/L (98-107); Estimated CRCL calculation 66 ml/min; Estimated Glomerular Filt Rate > 60; Glucose 124 mg/dL (65-110); Magnesium 2.2 mg/dL (1.6-2.3); Potassium 4.2 mmol/L (3.4-5.0); Sodium 132 mmol/L (137-145)
[2022-04-27] MEDS: ENOXAPARIN 40 MG/0.4 ML SYRINGE SUB-Q (08:24)
[2022-04-27] MEDS: ASCORBIC ACID 500 MG TABLET PO (08:25)
[2022-04-27] MEDS: buPROPion HCL SR (12 HR) 150 MG TAB PO ×2 (08:25→15:55)
[2022-04-27] MEDS: guaiFENesin 12 HR 600 MG TABCR PO ×2 (08:25→20:45)
[2022-04-27] MEDS: CHOLECALCIFEROL 1,000 UNITS TABLET 2000 UNITS PO (08:25)
--- NOTE | 2022-04-27 10:13 | PM.PNPUL ---
Progress Note: A&P Assessment and Plan (1) COPD exacerbation: Code(s): J44.1 - Chronic obstructive pulmonary disease with (acute) exacerbation Status: Acute Assessment and Plan: 71-year-old with a history of GOLD grade 3 group E COPD, PFTs 12/12/2020 with an FEV1 of 0.74 L, 36% predicted and DLCO 35% predicted, Uses 2 L oxygen at night. Severe apical predominant centrilobular emphysema on the 1st CT scan in our system from 06/07/2019. COPD exacerbation 02/17/2022 seen in the emergency department and discharged on prednisone. Admitted to the hospital 03/04/2022 with influenza A and COPD exacerbation treated with Tamiflu, azithromycin and steroids. Home O2 assessment With no oxygen at rest or with ambulation. patient tells me she completely recovered. 04/26 currently she presents with 2 days worsening shortness of breath, chest tightness, dry cough, worsening dyspnea on exertion, worsening hypoxia . She has wheezes on exam. I will treat this as a moderate COPD exacerbation. solumedrol 40 IV Q 6 horus, Albuterol 2.5 mg nebulized Q 4 hours, ipratropium 0.5 mg nebulized Q 4 hours. patient is having difficulty producing phlegm and I will initiate guaifenesin ER 600 mg p.o. q.12 hours. Patient has no evidence of hypercarbic respiratory failure per her ABG of 7.40/45/70 on 2 L nasal cannula. I will check an alpha 1 phenotype and an alpha 1 level. 04/27 Patient is improving. She septal well. Shortness of breath at rest is resolved which she does have dyspnea on exertion. Overall she states she is 25% back to normal. She denies cough, phlegm or hemoptysis she has a few wheezing on next expiration. Saturations on 2 L were 95%. I decreased her to room air and saturations remained at 91%. White blood cell count is 7.5, creatinine is 0.5. echocardiogram with LVEF 50-55%, normal right ventricle, normal right atrium, PASP 35. I will change to prednisone 40 mg p.o. q.day and continue albuterol 2.5 nebs q.4 hours, ipratropium 0.5 mg nebs q.4 hours, guaifenesin 600 mg p.o. b.i.d., starte Budesonide 0.5 mg nebulized b.i.d.. I will check an overnight oximetry tonight on [address] Crocker. Will follow with you. (2) Multifocal pneumonia: Code(s): J18.9 - Pneumonia, unspecified organism Status: Acute Assessment and Plan: Patient with no fever, chills, rigors, white blood cell count 7.2, CT angiogram of the chest showed no pulmonary embolism, severe centrilobular apical predominant emphysema, small regions of patchy consolidative infiltrates posterior basal superior segment left lower lobe posterior segment left upper lobe and posterior segment right lower lobe (new from 11/28/2020). patient had influenza a on 03/04/2022 and it is unclear if these infiltrates are residual from her influenza a or if they represent a new pneumonia. 04/26 COVID and influenza RT PCR studies negative now. Blood cultures are pending. Agree with ceftriaxone and azithromycin. 04/27 afebrile, white blood cell improved to 9.5. Continue ceftriaxone and azithromycin, both day 2. Subjective Date/time seen: 04/27/22 10:13 Interval history: 04/26/2022:? This is a new pulmonary consult for COPD exacerbation and pneumonia ?71-year-old with a history of GOLD grade 3 group E COPD, PFTs 12/12/2020 with an FEV1 of 0.74 L, 36% predicted and DLCO 35% predicted, ? Uses 2 L oxygen at night. ? Severe apical predominant centrilobular emphysema on the 1st CT scan in our system from 06/07/2019.? COPD exacerbation 02/17/2022 seen in the emergency department and discharged on prednisone.? Admitted to the hospital 03/04/2022 with influenza A ? and COPD exacerbation treated with Tamiflu, azithromycin and steroids. ? Home O2 assessment With no oxygen at rest or with ambulation.? patient tells me she completely recovered. ? At baseline.? Patient states she is able to complete her activities of daily living without having to sto
[2022-04-27] MEDS: predniSONE 20 MG TABLET 40 MG PO (11:24)
--- NOTE | 2022-04-27 14:09 | PM.IMPN ---
Progress Note: A&P Assessment and Plan (1) Chest pain: Code(s): R07.9 - Chest pain, unspecified Status: Acute Assessment and Plan: ED-HPI Narrative: ? ? ? 71-year-old female with history of COPD here for evaluation of chest tightness tonight.? Patient states that the pain is described as a band of tightness and pressure across her upper chest that came on while she was ambulating.? She took her vitals at that time and noticed that her O2 was in the 80s and her heart rate was 130; states she normally only wears O2 at bedtime.? She has had a cough productive of yellow sputum which is new for her.? Also reports increased dyspnea over the past several days, unrelieved by her DuoNeb inhalers.? No leg swelling, nausea, vomiting. 71-year-old female with long history of smoking history of COPD chronic respiratory failure home oxygen 2 L patient stated his CP had been shortness of breath and short winded with ambulation her symptoms worsening and then she developed chest pain describing as a tight band around her chest presented emergency depart further evaluation, patient 3 sets cardiac enzymes are negative no acute changes on EKG patient seen by Cardiology and not suspect acute coronary syndrome however cardiac echo is ordered and further recommendation to follow, CT scan of the chest showed multifocal pneumonia and patient has been started on and ceftriaxone and azithromycin, on lung exam there are no wheezing however patient does have a history of smoking will consult pulmonology for further recommendation, will continue present management and further recommendation to follow. (2) Chronic respiratory failure with hypoxia, on home oxygen therapy: Code(s): J96.11 - Chronic respiratory failure with hypoxia; Z99.81 - Dependence on supplemental oxygen Status: Acute (3) Multifocal pneumonia: Code(s): J18.9 - Pneumonia, unspecified organism Status: Acute Assessment and Plan: patient being treated with ceftriaxone and azithromycin, patient will be seen by field sales engineer and further recommendation to follow. (4) Chronic obstructive pulmonary disease: Code(s): J44.9 - Chronic obstructive pulmonary disease, unspecified Status: Acute Assessment and Plan: patient with long smoking history, and chronic respiratory failure requiring BiPAP, Plan acute hypoxic on chronic respiratory failure requiring BiPAP currently on oxygen supplementation. Pulmonary following related to COPD exacerbation and multifocal pneumonia. Flu and COVID negative. CTA negative for PE. Severe emphysema new 6 mm nodule in right lower lobe needs three-month follow-up low-dose CT chest Multifocal pneumonia on ceftriaxone and azithromycin COPD with longstanding history of smoking Chest pain cardiac enzymes negative no acute Thatch an EKG seen by Cardiology does not suspect ACS. Echocardiogram reviewed and unremarkable. Mild hyponatremia bacteremia Gram-positive cocci in cluster in 1 out of 2. Will repeat blood culture again in place on vancomycin IV DVT prophylaxis Subjective Date/time seen: 04/27/22 14:09 Interval history: ?71-year-old female with history of COPD here for evaluation of chest tightness tonight.? Patient states that the pain is described as a band of tightness and pressure across her upper chest that came on while she was ambulating.? She took her vitals at that time and noticed that her O2 was in the 80s and her heart rate was 130; states she normally only wears O2 at bedtime.? She has had a cough productive of yellow sputum which is new for her.? Also reports increased dyspnea over the past several days, unrelieved by her DuoNeb inhalers.? No leg swelling, nausea, vomiting. ?71-year-old female with long history of smoking history of COPD chronic respiratory failure home oxygen 2 L patient stated his CP had been shortness of breath and short winded with ambulation her symptoms worsening and then she deve
--- NOTE | 2022-04-27 21:15 | PCRCNOTE ---
Pt was very confused about her apnea link oximetry test tonight. Pt refusing. RT spoke with pt twice, RN spoke with pt once. Pt need further education from provider. Pt apnea link is being postpone until 04/28/22. RN informed.
[2022-04-27] MEDS: BUDESONIDE RESPULE NEB 0.5 MG/2 ML AMP INHALATION (21:19)
[2022-04-27] MEDS: cefTRIAXone 2 GM in SODIUM CHLORIDE 0.9% IV 100 ML 200 ML IVPB (22:40)
[2022-04-28] VITALS (21 sets, daily range): BP systolic 113–130; BP diastolic 46–55; PULSE 78–106; RESP 14–20; TEMP 35.8–36.4; O2SAT 94–100
[2022-04-28] MEDS: IPRATROPIUM BR 0.02% INH SOLN 0.5 MG/2.5 ML VIAL INHALATION ×5 (00:45→20:33)
[2022-04-28] MEDS: ALBUTEROL SULFATE NEB 2.5 MG/3 ML INH INHALATION ×5 (00:45→20:33)
[2022-04-28 06:27] LABS: Basophils Percent Auto 0.2 % (0.2-1.2); Eosinophils Percent Auto 0.4 % (0-4.4); Hematocrit 32.7 % (37.0-47.0); Hemoglobin 10.5 g/dL (12.0-15.0); Immature Granulocyte Absolute 0.03 K/mm3 (0.00-0.031); Immature Granulocyte Percent A 0.4 % (0-0.5); Lymphocytes Absolute Auto 1.89 K/mm3 (0.9-3.2); Lymphocytes Percent Auto 22.2 % (18.3-44.2); Mean Corpuscular HGB Conc 32.1 g/dl (32-36); Mean Corpuscular Hemoglobin 32.8 pg (26-34); Mean Corpuscular Volume 102.2 fl (80-100); Mean Platelet Volume 10.7 fl (7.4-10.4); Monocytes Absolute Auto 0.7 K/mm3 (0.1-0.6); Monocytes Percent Auto 7.9 % (2.6-8.5); Neutrophils Absolute Auto 5.9 K/mm3 (1.3-6.7); Neutrophils Percent Auto 68.9 % (45.5-73.1); Platelet Count Result 216 k/mm3 (150-375); White Blood Count 8.5 K/mm3 (4.5-10.0)
[2022-04-28 06:40] LABS: Anion Gap 5 mmol/L (8-16); Blood Urea Nitrogen 20 mg/dL (7-17); Calcium 8.8 mg/dL (8.4-10.2); Carbon Dioxide 31 mmol/L (22-30); Chloride 97 mmol/L (98-107); Estimated CRCL calculation 66 ml/min; Estimated Glomerular Filt Rate > 60; Glucose 119 mg/dL (65-110); Magnesium 2.1 mg/dL (1.6-2.3); Potassium 3.9 mmol/L (3.4-5.0); Sodium 133 mmol/L (137-145)
[2022-04-28] MEDS: guaiFENesin 12 HR 600 MG TABCR PO ×2 (08:39→10:50)
[2022-04-28] MEDS: CHOLECALCIFEROL 1,000 UNITS TABLET 2000 UNITS PO (08:39)
[2022-04-28] MEDS: BUDESONIDE RESPULE NEB 0.5 MG/2 ML AMP INHALATION ×2 (08:39→20:33)
[2022-04-28] MEDS: predniSONE 20 MG TABLET 40 MG PO (08:39)
[2022-04-28] MEDS: buPROPion HCL SR (12 HR) 150 MG TAB PO ×2 (08:39→17:00)
[2022-04-28] MEDS: ASCORBIC ACID 500 MG TABLET PO (08:39)
[2022-04-28] MEDS: SACCHAROMYCES BOULARDII 250 MG CAPSULE PO ×2 (08:40→17:00)
[2022-04-28] MEDS: ENOXAPARIN 40 MG/0.4 ML SYRINGE SUB-Q (08:40)
--- NOTE | 2022-04-28 09:17 | P.PNPL_ITS ---
Progress Note: A&P Assessment and Plan (1) COPD exacerbation: Code(s): J44.1 - Chronic obstructive pulmonary disease with (acute) exacerbation Status: Acute Assessment and Plan: 71-year-old with a history of GOLD grade 3 group E COPD, PFTs 12/12/2020 with an FEV1 of 0.74 L, 36% predicted and DLCO 35% predicted, Uses 2 L oxygen at night. Severe apical predominant centrilobular emphysema on the 1st CT scan in our system from 06/07/2019. COPD exacerbation 02/17/2022 seen in the emergency department and discharged on prednisone. Admitted to the hospital 03/04/2022 with influenza A and COPD exacerbation treated with Tamiflu, azithromycin and steroids. Home O2 assessment With no oxygen at rest or with ambulation. patient tells me she completely recovered. 04/26 currently she presents with 2 days worsening shortness of breath, chest tightness, dry cough, worsening dyspnea on exertion, worsening hypoxia . She has wheezes on exam. I will treat this as a moderate COPD exacerbation. solumedrol 40 IV Q 6 horus, Albuterol 2.5 mg nebulized Q 4 hours, ipratropium 0.5 mg nebulized Q 4 hours. patient is having difficulty producing phlegm and I will initiate guaifenesin ER 600 mg p.o. q.12 hours. Patient has no evidence of hypercarbic respiratory failure per her ABG of 7.40/45/70 on 2 L nasal cannula. I will check an alpha 1 phenotype and an alpha 1 level. 04/27 Patient is improving. She septal well. Shortness of breath at rest is resolved which she does have dyspnea on exertion. Overall she states she is 25% back to normal. She denies cough, phlegm or hemoptysis she has a few wheezing on next expiration. Saturations on 2 L were 95%. I decreased her to room air and saturations remained at 91%. White blood cell count is 7.5, creatinine is 0.5. echocardiogram with LVEF 50-55%, normal right ventricle, normal right atrium, PASP 35. I will change to prednisone 40 mg p.o. q.day and continue albuterol 2.5 nebs q.4 hours, ipratropium 0.5 mg nebs q.4 hours, guaifenesin 600 mg p.o. b.i.d., starte Budesonide 0.5 mg nebulized b.i.d.. 04/28 Patient says she feels the same as yesterday. States she is 25% back to normal. Breathing at rest is improving but she still has extreme dyspnea on exertion across the room. She is on 2 L nasal cannula saturations 100%. She has no wheezes on exam. White blood cell count 8.5, creatinine 0.5. Patient states she has difficulty expectorating her sputum despite the Cornet flutter valve. continue prednisone 40 mg p.o. q.day, day 3 of steroids, continue albuterol and ipratropium nebulizers q.4 hours. Continue budesonide 0.5 mg Q 12 hours, increased guaifenesin from 600 b.i.d. to 1200 b.i.d.. I will start dornase nebulizers 2.5 mg BID. I will check a chest x-ray in the morning. Discussed with Dr. Crocker. Will follow with you. (2) Multifocal pneumonia: Code(s): J18.9 - Pneumonia, unspecified organism Status: Acute Assessment and Plan: Patient with no fever, chills, rigors, white blood cell count 7.2, CT angiogram of the chest showed no pulmonary embolism, severe centrilobular apical predominant emphysema, small regions of patchy consolidative infiltrates posterior basal superior segment left lower lobe posterior segment left upper lobe and posterior segment right lower lobe (new from 11/28/2020). patient had influenza A on 03/04/2022 and it is unclear if these infiltrates are residual from her influenza A or if they represent a new pneumonia. 04/26 COVID and influenza RT PCR studies negative now. Blood cultures are pending. Agree with ceftriaxone and azithromycin. 04/27 afebrile, white blood cell improved to 9.5. Melissa
[2022-04-28] MEDS: DORNASE ALFA INH SOLN 1 MG/ML 2.5 ML AMP 2.5 MG INHALATION ×2 (13:55→20:33)
--- NOTE | 2022-04-28 14:41 | PM.IMPN ---
Progress Note: A&P Assessment and Plan (1) Chest pain: Code(s): R07.9 - Chest pain, unspecified Status: Acute Assessment and Plan: ED-HPI Narrative: ? ? ? 71-year-old female with history of COPD here for evaluation of chest tightness tonight.? Patient states that the pain is described as a band of tightness and pressure across her upper chest that came on while she was ambulating.? She took her vitals at that time and noticed that her O2 was in the 80s and her heart rate was 130; states she normally only wears O2 at bedtime.? She has had a cough productive of yellow sputum which is new for her.? Also reports increased dyspnea over the past several days, unrelieved by her DuoNeb inhalers.? No leg swelling, nausea, vomiting. 71-year-old female with long history of smoking history of COPD chronic respiratory failure home oxygen 2 L patient stated his CP had been shortness of breath and short winded with ambulation her symptoms worsening and then she developed chest pain describing as a tight band around her chest presented emergency depart further evaluation, patient 3 sets cardiac enzymes are negative no acute changes on EKG patient seen by Cardiology and not suspect acute coronary syndrome however cardiac echo is ordered and further recommendation to follow, CT scan of the chest showed multifocal pneumonia and patient has been started on and ceftriaxone and azithromycin, on lung exam there are no wheezing however patient does have a history of smoking will consult pulmonology for further recommendation, will continue present management and further recommendation to follow. (2) Chronic respiratory failure with hypoxia, on home oxygen therapy: Code(s): J96.11 - Chronic respiratory failure with hypoxia; Z99.81 - Dependence on supplemental oxygen Status: Acute (3) Multifocal pneumonia: Code(s): J18.9 - Pneumonia, unspecified organism Status: Acute Assessment and Plan: patient being treated with ceftriaxone and azithromycin, patient will be seen by charge master coordinator and further recommendation to follow. (4) Chronic obstructive pulmonary disease: Code(s): J44.9 - Chronic obstructive pulmonary disease, unspecified Status: Acute Assessment and Plan: patient with long smoking history, and chronic respiratory failure requiring BiPAP, Plan acute hypoxic on chronic respiratory failure requiring BiPAP currently on oxygen supplementation. Pulmonary following related to COPD exacerbation and multifocal pneumonia. Flu and COVID negative. CTA negative for PE. Severe emphysema new 6 mm nodule in right lower lobe needs three-month follow-up low-dose CT chest . Continue oxygen supplementation and taper as tolerated Multifocal pneumonia on ceftriaxone and azithromycin COPD with longstanding history of smoking Chest pain cardiac enzymes negative no acute Thatch an EKG seen by Cardiology does not suspect ACS. Echocardiogram reviewed and unremarkable. Mild hyponatremia stable bacteremia Gram-positive cocci in cluster in 1 out of 2. Will repeat blood culture again in place on vancomycin IV. Continue to monitor blood culture DVT prophylaxis Lovenox Code status full code Subjective Date/time seen: 04/28/22 14:41 Interval history: ?71-year-old female with history of COPD here for evaluation of chest tightness tonight.? Patient states that the pain is described as a band of tightness and pressure across her upper chest that came on while she was ambulating.? She took her vitals at that time and noticed that her O2 was in the 80s and her heart rate was 130; states she normally only wears O2 at bedtime.? She has had a cough productive of yellow sputum which is new for her.? Also reports increased dyspnea over the past several days, unrelieved by her DuoNeb inhalers.? No leg swelling, nausea, vomiting. ?71-year-old female with long history of smoking history of COPD chronic respiratory failure home oxy
[2022-04-28] MEDS: guaiFENesin 12 HR 600 MG TABCR 1200 MG PO (20:35)
[2022-04-28] MEDS: cefTRIAXone 2 GM in SODIUM CHLORIDE 0.9% IV 100 ML 200 ML IVPB (21:32)
--- NOTE | 2022-04-28 23:34 | PCRCNOTE ---
pt refusing sleep study on 04/28 stating she had a full outpatient study done in January.
[2022-04-29] VITALS (22 sets, daily range): BP systolic 109–121; BP diastolic 56–78; PULSE 82–103; RESP 18–19; TEMP 36.1–36.5; O2SAT 93–99
[2022-04-29] MEDS: ALBUTEROL SULFATE NEB 2.5 MG/3 ML INH INHALATION ×7 (00:17→23:58)
[2022-04-29] MEDS: IPRATROPIUM BR 0.02% INH SOLN 0.5 MG/2.5 ML VIAL INHALATION ×7 (00:17→23:58)
[2022-04-29 02:49] LABS: Basophils Absolute Auto 0.1 K/mm3 (0.0-0.1); Basophils Percent Auto 0.6 % (0.2-1.2); Eosinophils Absolute Auto 0.1 K/mm3 (0-0.3); Eosinophils Percent Auto 1.4 % (0-4.4); Hematocrit 33.6 % (37.0-47.0); Hemoglobin 10.8 g/dL (12.0-15.0); Immature Granulocyte Absolute 0.03 K/mm3 (0.00-0.031); Immature Granulocyte Percent A 0.4 % (0-0.5); Lymphocytes Absolute Auto 2.42 K/mm3 (0.9-3.2); Lymphocytes Percent Auto 30.5 % (18.3-44.2); Mean Corpuscular HGB Conc 32.1 g/dl (32-36); Mean Corpuscular Hemoglobin 32.8 pg (26-34); Mean Corpuscular Volume 102.1 fl (80-100); Mean Platelet Volume 10.4 fl (7.4-10.4); Monocytes Absolute Auto 0.7 K/mm3 (0.1-0.6); Monocytes Percent Auto 8.6 % (2.6-8.5); Neutrophils Absolute Auto 4.7 K/mm3 (1.3-6.7); Neutrophils Percent Auto 58.5 % (45.5-73.1); Platelet Count Result 229 k/mm3 (150-375); Red Blood Count 3.29 M/mm3 (4.2-5.4); Red Cell Distribution Width 13.2 % (11.5-14.5); White Blood Count 7.9 K/mm3 (4.5-10.0)
[2022-04-29 03:07] LABS: Anion Gap 4 mmol/L (8-16); Blood Urea Nitrogen 12 mg/dL (7-17); Calcium 8.8 mg/dL (8.4-10.2); Carbon Dioxide 35 mmol/L (22-30); Chloride 93 mmol/L (98-107); Estimated CRCL calculation 66 ml/min; Estimated Glomerular Filt Rate > 60; Glucose 103 mg/dL (65-110); Magnesium 2.2 mg/dL (1.6-2.3); Potassium 3.7 mmol/L (3.4-5.0); Sodium 132 mmol/L (137-145)
[2022-04-29 03:50] LABS: Vancomycin Trough 10.1 ug/mL (10.0-20.0)
[2022-04-29] MEDS: BUDESONIDE RESPULE NEB 0.5 MG/2 ML AMP INHALATION ×2 (07:47→20:17)
[2022-04-29] MEDS: DORNASE ALFA INH SOLN 1 MG/ML 2.5 ML AMP 2.5 MG INHALATION ×2 (07:47→20:18)
[2022-04-29] MEDS: CHOLECALCIFEROL 1,000 UNITS TABLET 2000 UNITS PO (08:33)
[2022-04-29] MEDS: SACCHAROMYCES BOULARDII 250 MG CAPSULE PO ×2 (08:33→16:49)
[2022-04-29] MEDS: guaiFENesin 12 HR 600 MG TABCR 1200 MG PO ×2 (08:34→21:06)
[2022-04-29] MEDS: buPROPion HCL SR (12 HR) 150 MG TAB PO ×2 (08:34→16:49)
[2022-04-29] MEDS: ENOXAPARIN 40 MG/0.4 ML SYRINGE SUB-Q (08:34)
[2022-04-29] MEDS: ASCORBIC ACID 500 MG TABLET PO (08:34)
[2022-04-29] MEDS: predniSONE 20 MG TABLET 40 MG PO (08:34)
--- NOTE | 2022-04-29 12:11 | PM.IMPN ---
Progress Note: A&P Assessment and Plan (1) Chest pain: Code(s): R07.9 - Chest pain, unspecified Status: Acute Assessment and Plan: ED-HPI Narrative: ? ? ? 71-year-old female with history of COPD here for evaluation of chest tightness tonight.? Patient states that the pain is described as a band of tightness and pressure across her upper chest that came on while she was ambulating.? She took her vitals at that time and noticed that her O2 was in the 80s and her heart rate was 130; states she normally only wears O2 at bedtime.? She has had a cough productive of yellow sputum which is new for her.? Also reports increased dyspnea over the past several days, unrelieved by her DuoNeb inhalers.? No leg swelling, nausea, vomiting. 71-year-old female with long history of smoking history of COPD chronic respiratory failure home oxygen 2 L patient stated his CP had been shortness of breath and short winded with ambulation her symptoms worsening and then she developed chest pain describing as a tight band around her chest presented emergency depart further evaluation, patient 3 sets cardiac enzymes are negative no acute changes on EKG patient seen by Cardiology and not suspect acute coronary syndrome however cardiac echo is ordered and further recommendation to follow, CT scan of the chest showed multifocal pneumonia and patient has been started on and ceftriaxone and azithromycin, on lung exam there are no wheezing however patient does have a history of smoking will consult pulmonology for further recommendation, will continue present management and further recommendation to follow. 04/29/2022 interval history: No overnight events. Feels better however when ambulates she still gets very short of breath. Coughing but nothing comes up. patient is treated with high-dose guaifenesin 200 mg b.i.d., prednisone 40 mg q.day and bronchodilator, seen by pulmonology and further recommendation to follow, 1st set of blood culture grew Staph epididymis most likely contamination patient is being treated with vancomycin and repeat blood culture collected on 04/28 no growth so far, will continue present med and monitor, patient is present in the room answered all his questions (2) Chronic respiratory failure with hypoxia, on home oxygen therapy: Code(s): J96.11 - Chronic respiratory failure with hypoxia; Z99.81 - Dependence on supplemental oxygen Status: Acute (3) Multifocal pneumonia: Code(s): J18.9 - Pneumonia, unspecified organism Status: Acute Assessment and Plan: patient being treated with ceftriaxone and azithromycin, patient will be seen by metallurgical specialist and further recommendation to follow. (4) Chronic obstructive pulmonary disease: Code(s): J44.9 - Chronic obstructive pulmonary disease, unspecified Status: Acute Assessment and Plan: patient with long smoking history, and chronic respiratory failure requiring BiPAP, Plan acute hypoxic on chronic respiratory failure requiring BiPAP currently on oxygen supplementation. Pulmonary following related to COPD exacerbation and multifocal pneumonia. Flu and COVID negative. CTA negative for PE. Severe emphysema new 6 mm nodule in right lower lobe needs three-month follow-up low-dose CT chest . Continue oxygen supplementation and taper as tolerated Multifocal pneumonia on ceftriaxone and azithromycin COPD with longstanding history of smoking Chest pain cardiac enzymes negative no acute Thatch an EKG seen by Cardiology does not suspect ACS. Echocardiogram reviewed and unremarkable. Mild hyponatremia stable bacteremia Gram-positive cocci in cluster in 1 out of 2. Will repeat blood culture again in place on vancomycin IV. Continue to monitor blood culture DVT prophylaxis Lovenox Code status full code Subjective Date/time seen: 04/29/22 12:11 Interval history: ?71-year-old female with history of COPD here for evaluation of chest tightn
[2022-04-29] MEDS: diazePAM (*CRX) 2 MG TABLET 1 MG PO ×2 (13:36→21:08)
--- NOTE | 2022-04-29 18:40 | PM.PNPUL ---
Progress Note: A&P Assessment and Plan (1) COPD exacerbation: Code(s): J44.1 - Chronic obstructive pulmonary disease with (acute) exacerbation Status: Acute Assessment and Plan: 71-year-old with a history of GOLD grade 3 group E COPD, PFTs 12/12/2020 with an FEV1 of 0.74 L, 36% predicted and DLCO 35% predicted, Uses 2 L oxygen at night. Severe apical predominant centrilobular emphysema on the 1st CT scan in our system from 06/07/2019. COPD exacerbation 02/17/2022 seen in the emergency department and discharged on prednisone. Admitted to the hospital 03/04/2022 with influenza A and COPD exacerbation treated with Tamiflu, azithromycin and steroids. Home O2 assessment With no oxygen at rest or with ambulation. patient tells me she completely recovered. 04/26 currently she presents with 2 days worsening shortness of breath, chest tightness, dry cough, worsening dyspnea on exertion, worsening hypoxia . She has wheezes on exam. I will treat this as a moderate COPD exacerbation. solumedrol 40 IV Q 6 horus, Albuterol 2.5 mg nebulized Q 4 hours, ipratropium 0.5 mg nebulized Q 4 hours. patient is having difficulty producing phlegm and I will initiate guaifenesin ER 600 mg p.o. q.12 hours. Patient has no evidence of hypercarbic respiratory failure per her ABG of 7.40/45/70 on 2 L nasal cannula. I will check an alpha 1 phenotype and an alpha 1 level. 04/27 Patient is improving. She septal well. Shortness of breath at rest is resolved which she does have dyspnea on exertion. Overall she states she is 25% back to normal. She denies cough, phlegm or hemoptysis she has a few wheezing on next expiration. Saturations on 2 L were 95%. I decreased her to room air and saturations remained at 91%. White blood cell count is 7.5, creatinine is 0.5. echocardiogram with LVEF 50-55%, normal right ventricle, normal right atrium, PASP 35. I will change to prednisone 40 mg p.o. q.day and continue albuterol 2.5 nebs q.4 hours, ipratropium 0.5 mg nebs q.4 hours, guaifenesin 600 mg p.o. b.i.d., starte Budesonide 0.5 mg nebulized b.i.d.. 04/28 Patient says she feels the same as yesterday. States she is 25% back to normal. Breathing at rest is improving but she still has extreme dyspnea on exertion across the room. She is on 2 L nasal cannula saturations 100%. She has no wheezes on exam. White blood cell count 8.5, creatinine 0.5. Patient states she has difficulty expectorating her sputum despite the Cornet flutter valve. continue prednisone 40 mg p.o. q.day, day 3 of steroids, continue albuterol and ipratropium nebulizers q.4 hours. Continue budesonide 0.5 mg Q 12 hours, increased guaifenesin from 600 b.i.d. to 1200 b.i.d.. I will start dornase nebulizers 2.5 mg BID. 04/29 Continue same O2, mucolytics with Dornase roberto carlos, steroids, bronchodilators. (2) Multifocal pneumonia: Code(s): J18.9 - Pneumonia, unspecified organism Status: Acute Assessment and Plan: Patient with no fever, chills, rigors, white blood cell count 7.2, CT angiogram of the chest showed no pulmonary embolism, severe centrilobular apical predominant emphysema, small regions of patchy consolidative infiltrates posterior basal superior segment left lower lobe posterior segment left upper lobe and posterior segment right lower lobe (new from 11/28/2020). patient had influenza A on 03/04/2022 and it is unclear if these infiltrates are residual from her influenza A or if they represent a new pneumonia. 04/26 COVID and influenza RT PCR studies negative now. Blood cultures are pending. Agree with ceftriaxone and azithromycin. 04/27 afebrile, white blood cell improved to 9.5. Continue ceftriaxone and azithromycin, both day 2. Gram-positive cocci in 1 of 2 blood cultures started on vancomycin 04/28 afebrile, white blood cell count 8.5, continue ceftriaxone and azithromycin, both day 3,
[2022-04-29] MEDS: cefTRIAXone 2 GM in SODIUM CHLORIDE 0.9% IV 100 ML 200 ML IVPB (21:07)
[2022-04-30] VITALS (22 sets, daily range): BP systolic 106–129; BP diastolic 45–53; PULSE 75–108; RESP 16–22; TEMP 36.4–37.3; O2SAT 91–99
[2022-04-30] MEDS: ALBUTEROL SULFATE NEB 2.5 MG/3 ML INH INHALATION ×5 (03:45→20:16)
[2022-04-30] MEDS: IPRATROPIUM BR 0.02% INH SOLN 0.5 MG/2.5 ML VIAL INHALATION ×5 (03:46→20:16)
[2022-04-30 07:31] LABS: Basophils Absolute Auto 0.1 K/mm3 (0.0-0.1); Basophils Percent Auto 0.8 % (0.2-1.2); Eosinophils Absolute Auto 0.3 K/mm3 (0-0.3); Eosinophils Percent Auto 4.5 % (0-4.4); Hemoglobin 10.1 g/dL (12.0-15.0); Immature Granulocyte Absolute 0.02 K/mm3 (0.00-0.031); Immature Granulocyte Percent A 0.3 % (0-0.5); Lymphocytes Absolute Auto 2.39 K/mm3 (0.9-3.2); Lymphocytes Percent Auto 37.1 % (18.3-44.2); Mean Corpuscular HGB Conc 31.6 g/dl (32-36); Mean Corpuscular Hemoglobin 32.9 pg (26-34); Mean Corpuscular Volume 104.2 fl (80-100); Mean Platelet Volume 10.5 fl (7.4-10.4); Monocytes Absolute Auto 0.7 K/mm3 (0.1-0.6); Monocytes Percent Auto 10.1 % (2.6-8.5); Neutrophils Absolute Auto 3.1 K/mm3 (1.3-6.7); Neutrophils Percent Auto 47.2 % (45.5-73.1); Platelet Count Result 212 k/mm3 (150-375); Red Blood Count 3.07 M/mm3 (4.2-5.4); Red Cell Distribution Width 13.2 % (11.5-14.5); White Blood Count 6.5 K/mm3 (4.5-10.0)
[2022-04-30 07:34] LABS: Anion Gap 3 mmol/L (8-16); Blood Urea Nitrogen 11 mg/dL (7-17); Calcium 8.3 mg/dL (8.4-10.2); Carbon Dioxide 33 mmol/L (22-30); Chloride 99 mmol/L (98-107); Estimated CRCL calculation 66 ml/min; Estimated Glomerular Filt Rate > 60; Glucose 82 mg/dL (65-110); Magnesium 2.4 mg/dL (1.6-2.3); Potassium 3.5 mmol/L (3.4-5.0); Sodium 135 mmol/L (137-145)
[2022-04-30] MEDS: BUDESONIDE RESPULE NEB 0.5 MG/2 ML AMP INHALATION ×2 (08:23→20:16)
[2022-04-30] MEDS: DORNASE ALFA INH SOLN 1 MG/ML 2.5 ML AMP 2.5 MG INHALATION ×2 (08:27→20:16)
[2022-04-30] MEDS: CHOLECALCIFEROL 1,000 UNITS TABLET 2000 UNITS PO (08:57)
[2022-04-30] MEDS: ASCORBIC ACID 500 MG TABLET PO (08:57)
[2022-04-30] MEDS: diazePAM (*CRX) 2 MG TABLET 1 MG PO ×3 (08:58→23:22)
[2022-04-30] MEDS: predniSONE 20 MG TABLET 40 MG PO (08:58)
[2022-04-30] MEDS: SACCHAROMYCES BOULARDII 250 MG CAPSULE PO ×2 (08:58→16:29)
[2022-04-30] MEDS: buPROPion HCL SR (12 HR) 150 MG TAB PO ×2 (09:01→16:28)
[2022-04-30] MEDS: guaiFENesin 12 HR 600 MG TABCR 1200 MG PO ×2 (09:02→20:22)
--- NOTE | 2022-04-30 11:00 | PM.IMPN ---
Progress Note: A&P Assessment and Plan (1) Chest pain: Code(s): R07.9 - Chest pain, unspecified Status: Acute Assessment and Plan: ED-HPI Narrative: ? ? ? 71-year-old female with history of COPD here for evaluation of chest tightness tonight.? Patient states that the pain is described as a band of tightness and pressure across her upper chest that came on while she was ambulating.? She took her vitals at that time and noticed that her O2 was in the 80s and her heart rate was 130; states she normally only wears O2 at bedtime.? She has had a cough productive of yellow sputum which is new for her.? Also reports increased dyspnea over the past several days, unrelieved by her DuoNeb inhalers.? No leg swelling, nausea, vomiting. 71-year-old female with long history of smoking history of COPD chronic respiratory failure home oxygen 2 L patient stated his CP had been shortness of breath and short winded with ambulation her symptoms worsening and then she developed chest pain describing as a tight band around her chest presented emergency depart further evaluation, patient 3 sets cardiac enzymes are negative no acute changes on EKG patient seen by Cardiology and not suspect acute coronary syndrome however cardiac echo is ordered and further recommendation to follow, CT scan of the chest showed multifocal pneumonia and patient has been started on and ceftriaxone and azithromycin, on lung exam there are no wheezing however patient does have a history of smoking will consult pulmonology for further recommendation, will continue present management and further recommendation to follow. 04/30/2022 interval history: last night patient did have episode of wheezing and anxiety, Feels better however when ambulates she still gets very short of breath. Coughing but nothing comes up. patient is treated with high-dose guaifenesin 1200 mg b.i.d., prednisone 40 mg q.day and bronchodilator, repeat chest x-ray did not show any sign of pnuemonia, seen by pulmonology and further recommendation to follow, 1st set of blood culture grew Staph epididymis most likely contamination patient was treated with vancomycin discussed with ID pharmacy will stop the the abx, and repeat blood culture collected on 04/27 no growth so far, will continue present med and monitor, patient is present in the room answered all his questions. (2) Chronic respiratory failure with hypoxia, on home oxygen therapy: Code(s): J96.11 - Chronic respiratory failure with hypoxia; Z99.81 - Dependence on supplemental oxygen Status: Acute (3) Multifocal pneumonia: Code(s): J18.9 - Pneumonia, unspecified organism Status: Acute Assessment and Plan: patient being treated with ceftriaxone and azithromycin, patient will be seen by event set up specialist and further recommendation to follow. (4) Chronic obstructive pulmonary disease: Code(s): J44.9 - Chronic obstructive pulmonary disease, unspecified Status: Acute Assessment and Plan: patient with long smoking history, and chronic respiratory failure requiring BiPAP, Plan acute hypoxic on chronic respiratory failure requiring BiPAP currently on oxygen supplementation. Pulmonary following related to COPD exacerbation and multifocal pneumonia. Flu and COVID negative. CTA negative for PE. Severe emphysema new 6 mm nodule in right lower lobe needs three-month follow-up low-dose CT chest . Continue oxygen supplementation and taper as tolerated Multifocal pneumonia on ceftriaxone and azithromycin COPD with longstanding history of smoking Chest pain cardiac enzymes negative no acute Thatch an EKG seen by Cardiology does not suspect ACS. Echocardiogram reviewed and unremarkable. Mild hyponatremia stable bacteremia Gram-positive cocci in cluster in 1 out of 2. Will repeat blood culture again in place on vancomycin IV. Continue to monitor blood culture DVT prophylaxis Lovenox Code status full code [place]
[2022-04-30] MEDS: cefTRIAXone 2 GM in SODIUM CHLORIDE 0.9% IV 100 ML 200 ML IVPB (20:22)
[2022-05-01] VITALS (20 sets, daily range): BP systolic 109–114; BP diastolic 45–60; PULSE 73–103; RESP 16–18; TEMP 36.2–36.4; O2SAT 93–98
[2022-05-01] MEDS: IPRATROPIUM BR 0.02% INH SOLN 0.5 MG/2.5 ML VIAL INHALATION ×5 (00:41→19:57)
[2022-05-01] MEDS: ALBUTEROL SULFATE NEB 2.5 MG/3 ML INH INHALATION ×5 (00:41→19:57)
[2022-05-01 07:58] LABS: Anion Gap 4 mmol/L (8-16); Blood Urea Nitrogen 18 mg/dL (7-17); Calcium 8.4 mg/dL (8.4-10.2); Carbon Dioxide 33 mmol/L (22-30); Chloride 100 mmol/L (98-107); Estimated CRCL calculation 66 ml/min; Estimated Glomerular Filt Rate > 60; Glucose 87 mg/dL (65-110); Magnesium 2.3 mg/dL (1.6-2.3); Potassium 3.6 mmol/L (3.4-5.0); Sodium 137 mmol/L (137-145)
[2022-05-01 07:59] LABS: Basophils Absolute Auto 0.1 K/mm3 (0.0-0.1); Basophils Percent Auto 0.8 % (0.2-1.2); Eosinophils Absolute Auto 0.4 K/mm3 (0-0.3); Eosinophils Percent Auto 4.8 % (0-4.4); Hematocrit 33.4 % (37.0-47.0); Hemoglobin 10.6 g/dL (12.0-15.0); Immature Granulocyte Absolute 0.03 K/mm3 (0.00-0.031); Immature Granulocyte Percent A 0.4 % (0-0.5); Lymphocytes Absolute Auto 2.75 K/mm3 (0.9-3.2); Lymphocytes Percent Auto 36.9 % (18.3-44.2); Mean Corpuscular HGB Conc 31.7 g/dl (32-36); Mean Platelet Volume 10.7 fl (7.4-10.4); Monocytes Absolute Auto 0.6 K/mm3 (0.1-0.6); Monocytes Percent Auto 8.5 % (2.6-8.5); Neutrophils Absolute Auto 3.6 K/mm3 (1.3-6.7); Neutrophils Percent Auto 48.6 % (45.5-73.1); Platelet Count Result 228 k/mm3 (150-375); Red Blood Count 3.21 M/mm3 (4.2-5.4); White Blood Count 7.5 K/mm3 (4.5-10.0)
[2022-05-01] MEDS: buPROPion HCL SR (12 HR) 150 MG TAB PO ×2 (09:01→16:48)
[2022-05-01] MEDS: ENOXAPARIN 40 MG/0.4 ML SYRINGE SUB-Q (09:01)
[2022-05-01] MEDS: ASCORBIC ACID 500 MG TABLET PO (09:01)
[2022-05-01] MEDS: predniSONE 20 MG TABLET 40 MG PO (09:01)
[2022-05-01] MEDS: SACCHAROMYCES BOULARDII 250 MG CAPSULE PO ×2 (09:01→16:48)
[2022-05-01] MEDS: CHOLECALCIFEROL 1,000 UNITS TABLET 2000 UNITS PO (09:01)
[2022-05-01] MEDS: guaiFENesin 12 HR 600 MG TABCR 1200 MG PO ×2 (09:01→20:47)
[2022-05-01] MEDS: diazePAM (*CRX) 2 MG TABLET 1 MG PO ×2 (09:05→20:47)
[2022-05-01] MEDS: BUDESONIDE RESPULE NEB 0.5 MG/2 ML AMP INHALATION ×2 (09:42→19:57)
[2022-05-01] MEDS: DORNASE ALFA INH SOLN 1 MG/ML 2.5 ML AMP 2.5 MG INHALATION ×2 (09:43→19:57)
--- NOTE | 2022-05-01 13:12 | PM.IMPN ---
Progress Note: A&P Assessment and Plan (1) Chest pain: Code(s): R07.9 - Chest pain, unspecified Status: Acute Assessment and Plan: ED-HPI Narrative: ? ? ? 71-year-old female with history of COPD here for evaluation of chest tightness tonight.? Patient states that the pain is described as a band of tightness and pressure across her upper chest that came on while she was ambulating.? She took her vitals at that time and noticed that her O2 was in the 80s and her heart rate was 130; states she normally only wears O2 at bedtime.? She has had a cough productive of yellow sputum which is new for her.? Also reports increased dyspnea over the past several days, unrelieved by her DuoNeb inhalers.? No leg swelling, nausea, vomiting. 71-year-old female with long history of smoking history of COPD chronic respiratory failure home oxygen 2 L patient stated his CP had been shortness of breath and short winded with ambulation her symptoms worsening and then she developed chest pain describing as a tight band around her chest presented emergency depart further evaluation, patient 3 sets cardiac enzymes are negative no acute changes on EKG patient seen by Cardiology and not suspect acute coronary syndrome however cardiac echo is ordered and further recommendation to follow, CT scan of the chest showed multifocal pneumonia and patient has been started on and ceftriaxone and azithromycin, on lung exam there are no wheezing however patient does have a history of smoking will consult pulmonology for further recommendation, will continue present management and further recommendation to follow. 05/01/2022 interval history: on 04/30 night patient did have episode of wheezing and anxiety, again today patient stats she was wheezing and could not sleep, Feels better however when ambulates she still gets very short of breath. Coughing up some sputum but it i difficulty exprotract patient is treated with high-dose guaifenesin 1200 mg b.i.d., prednisone 40 mg q.day and bronchodilator, repeat chest x-ray did not show any sign of pnuemonia, seen by pulmonology and further recommendation to follow, 1st set of blood culture grew Staph epididymis most likely contamination patient was treated with vancomycin discussed with ID pharmacy was stopped the the abx, and repeat blood culture collected on 04/27 no growth so far, however sputum culture is growing pseudomonas aerugniosa, currently on ceftriaxone and zithromycin, will add levoquine, will discuss with ID pharmacy, will continue present med and monitor, (2) Chronic respiratory failure with hypoxia, on home oxygen therapy: Code(s): J96.11 - Chronic respiratory failure with hypoxia; Z99.81 - Dependence on supplemental oxygen Status: Acute (3) Multifocal pneumonia: Code(s): J18.9 - Pneumonia, unspecified organism Status: Acute Assessment and Plan: patient being treated with ceftriaxone and azithromycin, patient will be seen by supervisor filling and packing and further recommendation to follow. (4) Chronic obstructive pulmonary disease: Code(s): J44.9 - Chronic obstructive pulmonary disease, unspecified Status: Acute Assessment and Plan: patient with long smoking history, and chronic respiratory failure requiring BiPAP, Plan acute hypoxic on chronic respiratory failure requiring BiPAP currently on oxygen supplementation. Pulmonary following related to COPD exacerbation and multifocal pneumonia. Flu and COVID negative. CTA negative for PE. Severe emphysema new 6 mm nodule in right lower lobe needs three-month follow-up low-dose CT chest . Continue oxygen supplementation and taper as tolerated Multifocal pneumonia on ceftriaxone and azithromycin COPD with longstanding history of smoking Chest pain cardiac enzymes negative no acute Thatch an EKG seen by Cardiology does not suspect ACS. Echocardiogram reviewed and unremarkable. Mild hyponatremia stable bacteremia Gram-positive nikolay
--- NOTE | 2022-05-01 17:57 | PM.PNPUL ---
Progress Note: A&P Assessment and Plan (1) COPD exacerbation: Code(s): J44.1 - Chronic obstructive pulmonary disease with (acute) exacerbation Status: Acute Assessment and Plan: 71-year-old with a history of GOLD grade 3 group E COPD, PFTs 12/12/2020 with an FEV1 of 0.74 L, 36% predicted and DLCO 35% predicted, Uses 2 L oxygen at night. Severe apical predominant centrilobular emphysema on the 1st CT scan in our system from 06/07/2019. COPD exacerbation 02/17/2022 seen in the emergency department and discharged on prednisone. Admitted to the hospital 03/04/2022 with influenza A and COPD exacerbation treated with Tamiflu, azithromycin and steroids. Home O2 assessment With no oxygen at rest or with ambulation. patient tells me she completely recovered. 04/26 currently she presents with 2 days worsening shortness of breath, chest tightness, dry cough, worsening dyspnea on exertion, worsening hypoxia . She has wheezes on exam. I will treat this as a moderate COPD exacerbation. solumedrol 40 IV Q 6 horus, Albuterol 2.5 mg nebulized Q 4 hours, ipratropium 0.5 mg nebulized Q 4 hours. patient is having difficulty producing phlegm and I will initiate guaifenesin ER 600 mg p.o. q.12 hours. Patient has no evidence of hypercarbic respiratory failure per her ABG of 7.40/45/70 on 2 L nasal cannula. Check an alpha 1 phenotype and an alpha 1 level. 04/27 Patient is improving. She slept well. Shortness of breath at rest is resolved which she does have dyspnea on exertion. Overall she states she is 25% back to normal. She denies cough, phlegm or hemoptysis she has a few wheezing on next expiration. Saturations on 2 L were 95%. I decreased her to room air and saturations remained at 91%. White blood cell count is 7.5, creatinine is 0.5. echocardiogram with LVEF 50-55%, normal right ventricle, normal right atrium, PASP 35. I will change to prednisone 40 mg p.o. q.day and continue albuterol 2.5 nebs q.4 hours, ipratropium 0.5 mg nebs q.4 hours, guaifenesin 600 mg p.o. b.i.d., starte Budesonide 0.5 mg nebulized b.i.d.. 04/28 Patient says she feels the same as yesterday. States she is 25% back to normal. Breathing at rest is improving but she still has extreme dyspnea on exertion across the room. She is on 2 L nasal cannula saturations 100%. She has no wheezes on exam. White blood cell count 8.5, creatinine 0.5. Patient states she has difficulty expectorating her sputum despite the Cornet flutter valve. Continue prednisone 40 mg p.o. q.day, day 3 of steroids, continue albuterol and ipratropium nebulizers q.4 hours. Continue budesonide 0.5 mg Q 12 hours, increased guaifenesin from 600 b.i.d. to 1200 b.i.d.. I will start dornase nebulizers 2.5 mg BID. 04/29 Continue same O2, mucolytics with Dornase roberto carlos, steroids, bronchodilators. 05/01 Better. Plan to discharge home tomorrow. She is using Cornet valve on 4th out of 5th highest resistant setting. This helps to clear sputum. She has little sputum. She uses [employer] for legitimate information about COPD. She asked about washing equipment such as mouthpieces; can use vinegar 1/4 part to 3/4 part warm water. She is now on Cefepime for Pseudomonas, imipenem was stopped. Little sputum. WBC is 7.5. 98% saturation on 2 L/min. Will need Home O2 evaluation before discharge tomorrow. (2) Multifocal pneumonia: Code(s): J18.9 - Pneumonia, unspecified organism Status: Acute Assessment and Plan: Patient with no fever, chills, rigors, white blood cell count 7.2, CT angiogram of the chest showed no pulmonary embolism, severe centrilobular apical predominant emphysema, small regions of patchy consolidative infiltrates posterior basal superior segment left lower lobe posterior segment left upper lobe and posterior segment right lower lobe (new from 11/28/2020). patient had influenza A on 03/04/
[2022-05-02] VITALS (27 sets, daily range): BP systolic 105–120; BP diastolic 42–66; PULSE 77–116; RESP 14–22; TEMP 36.1–36.4; O2SAT 87–94
[2022-05-02] MEDS: IPRATROPIUM BR 0.02% INH SOLN 0.5 MG/2.5 ML VIAL INHALATION ×6 (00:20→23:24)
[2022-05-02] MEDS: ALBUTEROL SULFATE NEB 2.5 MG/3 ML INH INHALATION ×6 (00:20→23:24)
[2022-05-02 08:14] LABS: Basophils Absolute Auto 0.1 K/mm3 (0.0-0.1); Basophils Percent Auto 0.7 % (0.2-1.2); Eosinophils Absolute Auto 0.5 K/mm3 (0-0.3); Eosinophils Percent Auto 6.1 % (0-4.4); Hematocrit 33.9 % (37.0-47.0); Hemoglobin 10.6 g/dL (12.0-15.0); Immature Granulocyte Absolute 0.02 K/mm3 (0.00-0.031); Immature Granulocyte Percent A 0.3 % (0-0.5); Lymphocytes Absolute Auto 3.14 K/mm3 (0.9-3.2); Lymphocytes Percent Auto 41.7 % (18.3-44.2); Mean Corpuscular HGB Conc 31.3 g/dl (32-36); Mean Corpuscular Hemoglobin 32.1 pg (26-34); Mean Corpuscular Volume 102.7 fl (80-100); Mean Platelet Volume 9.7 fl (7.4-10.4); Monocytes Absolute Auto 0.6 K/mm3 (0.1-0.6); Neutrophils Absolute Auto 3.3 K/mm3 (1.3-6.7); Neutrophils Percent Auto 43.2 % (45.5-73.1); Platelet Count Result 219 k/mm3 (150-375); Red Cell Distribution Width 12.9 % (11.5-14.5); White Blood Count 7.5 K/mm3 (4.5-10.0)
[2022-05-02] MEDS: predniSONE 20 MG TABLET 40 MG PO (08:58)
[2022-05-02] MEDS: guaiFENesin 12 HR 600 MG TABCR 1200 MG PO ×2 (08:58→20:15)
[2022-05-02] MEDS: CHOLECALCIFEROL 1,000 UNITS TABLET 2000 UNITS PO (08:58)
[2022-05-02] MEDS: SACCHAROMYCES BOULARDII 250 MG CAPSULE PO ×2 (08:58→17:21)
[2022-05-02] MEDS: buPROPion HCL SR (12 HR) 150 MG TAB PO ×2 (08:58→17:21)
[2022-05-02] MEDS: ASCORBIC ACID 500 MG TABLET PO (08:58)
[2022-05-02 09:11] LABS: Anion Gap 0 mmol/L (8-16); Blood Urea Nitrogen 11 mg/dL (7-17); Calcium 8.3 mg/dL (8.4-10.2); Carbon Dioxide 33 mmol/L (22-30); Chloride 100 mmol/L (98-107); Estimated CRCL calculation 66 ml/min; Estimated Glomerular Filt Rate > 60; Glucose 88 mg/dL (65-110); Magnesium 2.3 mg/dL (1.6-2.3); Potassium 3.7 mmol/L (3.4-5.0); Sodium 133 mmol/L (137-145)
[2022-05-02] MEDS: BUDESONIDE RESPULE NEB 0.5 MG/2 ML AMP INHALATION ×2 (09:27→19:52)
[2022-05-02] MEDS: DORNASE ALFA INH SOLN 1 MG/ML 2.5 ML AMP 2.5 MG INHALATION ×2 (09:28→19:52)
[2022-05-02 10:34] LABS: Alpha-1-Antitrypsin, QN 135 mg/dL (83-199)
--- NOTE | 2022-05-02 14:51 | PM.IMPN ---
Progress Note: A&P Assessment and Plan (1) Chest pain: Code(s): R07.9 - Chest pain, unspecified Status: Acute Assessment and Plan: ED-HPI Narrative: ? ? ? 71-year-old female with history of COPD here for evaluation of chest tightness tonight.? Patient states that the pain is described as a band of tightness and pressure across her upper chest that came on while she was ambulating.? She took her vitals at that time and noticed that her O2 was in the 80s and her heart rate was 130; states she normally only wears O2 at bedtime.? She has had a cough productive of yellow sputum which is new for her.? Also reports increased dyspnea over the past several days, unrelieved by her DuoNeb inhalers.? No leg swelling, nausea, vomiting. 71-year-old female with long history of smoking history of COPD chronic respiratory failure home oxygen 2 L patient stated his CP had been shortness of breath and short winded with ambulation her symptoms worsening and then she developed chest pain describing as a tight band around her chest presented emergency depart further evaluation, patient 3 sets cardiac enzymes are negative no acute changes on EKG patient seen by Cardiology and not suspect acute coronary syndrome however cardiac echo is ordered and further recommendation to follow, CT scan of the chest showed multifocal pneumonia and patient has been started on and ceftriaxone and azithromycin, on lung exam there are no wheezing however patient does have a history of smoking will consult pulmonology for further recommendation, will continue present management and further recommendation to follow. 05/02/2022 interval history: on 04/30 night patient did have episode of wheezing and anxiety, again today patient stats she was wheezing and could not sleep, Feels better however when ambulates she still gets very short of breath. Coughing up some sputum but it i difficulty exprotract patient is treated with high-dose guaifenesin 1200 mg b.i.d., prednisone 40 mg q.day and bronchodilator, repeat chest x-ray did not show any sign of pnuemonia, seen by pulmonology and further recommendation to follow, 1st set of blood culture grew Staph epididymis most likely contamination patient was treated with vancomycin discussed with ID pharmacy was stopped the the abx, and repeat blood culture collected on 04/27 no growth so far, however sputum culture is growing pseudomonas aerugniosa, discuss with ID, started patient on Levaquin, and Dr. Loya is also in agreement, will monitor patient and if there are no significant side effect, will discharge patient tomorrow on Levaquin, will monitor. (2) Chronic respiratory failure with hypoxia, on home oxygen therapy: Code(s): J96.11 - Chronic respiratory failure with hypoxia; Z99.81 - Dependence on supplemental oxygen Status: Acute (3) Multifocal pneumonia: Code(s): J18.9 - Pneumonia, unspecified organism Status: Acute Assessment and Plan: patient being treated with ceftriaxone and azithromycin, patient will be seen by grounds restoration specialist and further recommendation to follow. (4) Chronic obstructive pulmonary disease: Code(s): J44.9 - Chronic obstructive pulmonary disease, unspecified Status: Acute Assessment and Plan: patient with long smoking history, and chronic respiratory failure requiring BiPAP, Plan acute hypoxic on chronic respiratory failure requiring BiPAP currently on oxygen supplementation. Pulmonary following related to COPD exacerbation and multifocal pneumonia. Flu and COVID negative. CTA negative for PE. Severe emphysema new 6 mm nodule in right lower lobe needs three-month follow-up low-dose CT chest . Continue oxygen supplementation and taper as tolerated Multifocal pneumonia on ceftriaxone and azithromycin COPD with longstanding history of smoking Chest pain cardiac enzymes negative no acute Thatch an EKG seen by Cardiology does not suspect ACS. Echocardiogram reviewe
--- NOTE | 2022-05-02 15:58 | HOMEO2EVAL ---
Evaluation was performed at [facility] Home Oxygen Evaluation RC: Home Oxygen (O2) Evaluation Start: 05/02/22 15:56 Freq: Status: Active Protocol: RPE Activity Type Activity Date Activity User E-sign Co-sign Detail Recorded Client Recorded Date Recorded By Document 05/02/22 15:30 FREDY [id number] 05/02/22 15:57 FREDY Document 05/02/22 15:32 FREDY [id number] 05/02/22 15:57 FREDY Document 05/02/22 15:35 FREDY [id number] 05/02/22 15:57 FREDY Document 05/02/22 15:45 FREDY [id number] 05/02/22 15:57 FREDY 05/02/22 05/02/22 05/02/22 15:30 15:32 15:35 Home O2 Evaluation [Oxygen] -Test Phase Resting Exercise Exercise -Oxygen Delivery Room Air Room Air Nasal Cannula -Oxygen Flow Rate (L/min) 2 [Pulse Oximetry] -Pulse Oximetry (90-100 %) 92 87 L 91 [Pulse Rate] -Pulse Rate (60-100 beats/min) 86 116 H [Comments] -Home Oxygen Evaluation Comments PT REQUIRES ROOM AIR AT REST AND 2L WITH ACTIVITY [Charges] -Treatment Charges O2 Evaluation - Inpatient 05/02/22 15:45 Home O2 Evaluation [Oxygen] -Test Phase Resting -Oxygen Delivery Room Air -Oxygen Flow Rate (L/min) [Pulse Oximetry] -Pulse Oximetry (90-100 %) 91 [Pulse Rate] -Pulse Rate (60-100 beats/min) 93 [Comments] -Home Oxygen Evaluation Comments [Charges] -Treatment Charges
--- NOTE | 2022-05-02 15:58 | PCRCNOTE ---
HOME O2 EVAL DONE, PT REQUIRES ROOM AIR AT REST AND 2 L WITH ACTIVITY. PATIENT HAS IV RESP. CARE DME. SON WILL BRING UP [facility] FOR TRANSPORT HOME.
[2022-05-02] MEDS: diazePAM (*CRX) 2 MG TABLET 1 MG PO (21:41)
[2022-05-02] MEDS: levoFLOXacin 750 MG TABLET PO (21:41)
[2022-05-03] VITALS (12 sets, daily range): BP systolic 102–115; BP diastolic 49–55; PULSE 78–115; RESP 14–18; TEMP 35.9–36.1; O2SAT 90–97
[2022-05-03] MEDS: ALBUTEROL SULFATE NEB 2.5 MG/3 ML INH INHALATION ×4 (03:42→17:00)
[2022-05-03] MEDS: IPRATROPIUM BR 0.02% INH SOLN 0.5 MG/2.5 ML VIAL INHALATION ×4 (03:43→17:00)
[2022-05-03 07:27] LABS: Basophils Absolute Auto 0.1 K/mm3 (0.0-0.1); Basophils Percent Auto 0.7 % (0.2-1.2); Eosinophils Absolute Auto 0.4 K/mm3 (0-0.3); Eosinophils Percent Auto 4.2 % (0-4.4); Hematocrit 31.6 % (37.0-47.0); Hemoglobin 10.2 g/dL (12.0-15.0); Immature Granulocyte Absolute 0.04 K/mm3 (0.00-0.031); Immature Granulocyte Percent A 0.5 % (0-0.5); Lymphocytes Absolute Auto 3.11 K/mm3 (0.9-3.2); Lymphocytes Percent Auto 37.2 % (18.3-44.2); Mean Corpuscular HGB Conc 32.3 g/dl (32-36); Mean Corpuscular Hemoglobin 32.4 pg (26-34); Mean Corpuscular Volume 100.3 fl (80-100); Mean Platelet Volume 10.1 fl (7.4-10.4); Monocytes Absolute Auto 0.7 K/mm3 (0.1-0.6); Monocytes Percent Auto 7.9 % (2.6-8.5); Neutrophils Absolute Auto 4.2 K/mm3 (1.3-6.7); Neutrophils Percent Auto 49.5 % (45.5-73.1); Platelet Count Result 244 k/mm3 (150-375); Red Blood Count 3.15 M/mm3 (4.2-5.4); White Blood Count 8.4 K/mm3 (4.5-10.0)
[2022-05-03 07:39] LABS: Anion Gap 3 mmol/L (8-16); Blood Urea Nitrogen 15 mg/dL (7-17); Calcium 8.4 mg/dL (8.4-10.2); Carbon Dioxide 33 mmol/L (22-30); Chloride 96 mmol/L (98-107); Estimated CRCL calculation 66 ml/min; Estimated Glomerular Filt Rate > 60; Glucose 84 mg/dL (65-110); Magnesium 2.2 mg/dL (1.6-2.3); Potassium 3.7 mmol/L (3.4-5.0); Sodium 132 mmol/L (137-145)
[2022-05-03] MEDS: predniSONE 20 MG TABLET 40 MG PO (08:50)
[2022-05-03] MEDS: buPROPion HCL SR (12 HR) 150 MG TAB PO ×2 (08:51→16:26)
[2022-05-03] MEDS: ASCORBIC ACID 500 MG TABLET PO (08:51)
[2022-05-03] MEDS: levoFLOXacin 750 MG TABLET PO (08:51)
[2022-05-03] MEDS: CHOLECALCIFEROL 1,000 UNITS TABLET 2000 UNITS PO (08:51)
[2022-05-03] MEDS: guaiFENesin 12 HR 600 MG TABCR 1200 MG PO (08:51)
[2022-05-03] MEDS: SACCHAROMYCES BOULARDII 250 MG CAPSULE PO ×2 (08:51→16:25)
[2022-05-03] MEDS: BUDESONIDE RESPULE NEB 0.5 MG/2 ML AMP INHALATION (09:05)
[2022-05-03] MEDS: DORNASE ALFA INH SOLN 1 MG/ML 2.5 ML AMP 2.5 MG INHALATION (09:06)
--- NOTE | 2022-05-03 10:50 | PCNFU ---
Nutrition Follow-Up Complete: Moderate malnutrition related to loss of appetite, chronic illness as evidenced bt 10% weight loss/2 months; intakes <75% needs >1 month. Goal: Adequate PO intake at least 50% of meals and supplements - Not meeting goal consistently. Continue same goal Pt current nutrition is Regular diet. Intakes from 075%. Average intake 30%. Ensure Enlive TID is ordered for additional 350 kcals and 20 g protein each. Nutrition recommendation: Continue same diet order and supplements. Agree with current orders. Last recorded weight is 48.5 kg. Bowel Motility: BM +1 05/02/22. Labs Reviewed: Hgb 10.2, Hct 31.6, Na 132, Cre 0.5 Meds Noted: Rocephin Skin: Bruising Additional Notes: Intakes still sporadic. Pt says she has had low appetite since February. Possible discharge today. Agree with currents orders Monitor intakes, weights, labs, supplement tolerance, plan of care Follow up in 7 days
--- NOTE | 2022-05-03 11:46 | PM.PNPUL ---
Progress Note: A&P Assessment and Plan (1) COPD exacerbation: Code(s): J44.1 - Chronic obstructive pulmonary disease with (acute) exacerbation Status: Acute Assessment and Plan: 71-year-old with a history of GOLD grade 3 group E COPD, PFTs 12/12/2020 with an FEV1 of 0.74 L, 36% predicted and DLCO 35% predicted, Uses 2 L oxygen at night. Severe apical predominant centrilobular emphysema on the 1st CT scan in our system from 06/07/2019. COPD exacerbation 02/17/2022 seen in the emergency department and discharged on prednisone. Admitted to the hospital 03/04/2022 with influenza A and COPD exacerbation treated with Tamiflu, azithromycin and steroids. Home O2 assessment With no oxygen at rest or with ambulation. patient tells me she completely recovered. 04/26 currently she presents with 2 days worsening shortness of breath, chest tightness, dry cough, worsening dyspnea on exertion, worsening hypoxia . She has wheezes on exam. I will treat this as a moderate COPD exacerbation. solumedrol 40 IV Q 6 horus, Albuterol 2.5 mg nebulized Q 4 hours, ipratropium 0.5 mg nebulized Q 4 hours. patient is having difficulty producing phlegm and I will initiate guaifenesin ER 600 mg p.o. q.12 hours. Patient has no evidence of hypercarbic respiratory failure per her ABG of 7.40/45/70 on 2 L nasal cannula. Check an alpha 1 phenotype and an alpha 1 level. 04/27 Patient is improving. She slept well. Shortness of breath at rest is resolved which she does have dyspnea on exertion. Overall she states she is 25% back to normal. She denies cough, phlegm or hemoptysis she has a few wheezing on next expiration. Saturations on 2 L were 95%. I decreased her to room air and saturations remained at 91%. White blood cell count is 7.5, creatinine is 0.5. echocardiogram with LVEF 50-55%, normal right ventricle, normal right atrium, PASP 35. I will change to prednisone 40 mg p.o. q.day and continue albuterol 2.5 nebs q.4 hours, ipratropium 0.5 mg nebs q.4 hours, guaifenesin 600 mg p.o. b.i.d., starte Budesonide 0.5 mg nebulized b.i.d.. 04/28 Patient says she feels the same as yesterday. States she is 25% back to normal. Breathing at rest is improving but she still has extreme dyspnea on exertion across the room. She is on 2 L nasal cannula saturations 100%. She has no wheezes on exam. White blood cell count 8.5, creatinine 0.5. Patient states she has difficulty expectorating her sputum despite the Cornet flutter valve. Continue prednisone 40 mg p.o. q.day, day 3 of steroids, continue albuterol and ipratropium nebulizers q.4 hours. Continue budesonide 0.5 mg Q 12 hours, increased guaifenesin from 600 b.i.d. to 1200 b.i.d.. I will start dornase nebulizers 2.5 mg BID. 04/29 Continue same O2, mucolytics with Dornase roberto carlos, steroids, bronchodilators. 05/01 Better. Plan to discharge home tomorrow. She is using Cornet valve on 4th out of 5th highest resistant setting. This helps to clear sputum. She has little sputum. She uses [employer] for legitimate information about COPD. She asked about washing equipment such as mouthpieces; can use vinegar 1/4 part to 3/4 part warm water. She is now on Cefepime for Pseudomonas, imipenem was stopped. Little sputum. WBC is 7.5. 98% saturation on 2 L/min. Will need Home O2 evaluation before discharge. 05/03 She feels better, ready for discharge. Home O2 = none at rest, 2 L with activity and sleep. She has a huge amount of anxiety, says that Valium works best for her. SHe was prescribed this in the 1970s. Fortunately, guidelines have changed, and anxiety is better treated with daily antianxiety-antidepressants, not isolated benzodiazepines. Her daughtger called the hospitalist and asked for a CXR to be ordered today. I do not see an image yet. CXR generally are not ordered on day of discharge. 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
--- NOTE | 2022-05-03 15:16 | PM.DS ---
DS: Admitting Diagnosis Discharge Date 05/03/2022 Admitting Diagnosis chest pain and shortness of breath DS: Discharge Diagnosis Discharge Diagnosis (1) Chest pain: Code(s): R07.9 - Chest pain, unspecified Status: Acute Assessment and Plan: ED-HPI Narrative: ? ? ? 71-year-old female with history of COPD here for evaluation of chest tightness tonight.? Patient states that the pain is described as a band of tightness and pressure across her upper chest that came on while she was ambulating.? She took her vitals at that time and noticed that her O2 was in the 80s and her heart rate was 130; states she normally only wears O2 at bedtime.? She has had a cough productive of yellow sputum which is new for her.? Also reports increased dyspnea over the past several days, unrelieved by her DuoNeb inhalers.? No leg swelling, nausea, vomiting. 71-year-old female with long history of smoking history of COPD chronic respiratory failure home oxygen 2 L patient stated his CP had been shortness of breath and short winded with ambulation her symptoms worsening and then she developed chest pain describing as a tight band around her chest presented emergency depart further evaluation, patient 3 sets cardiac enzymes are negative no acute changes on EKG patient seen by Cardiology and not suspect acute coronary syndrome however cardiac echo is ordered and further recommendation to follow, CT scan of the chest showed multifocal pneumonia and patient has been started on and ceftriaxone and azithromycin, on lung exam there are no wheezing however patient does have a history of smoking will consult pulmonology for further recommendation, will continue present management and further recommendation to follow. 05/02/2022 interval history: on 04/30 night patient did have episode of wheezing and anxiety, again today patient stats she was wheezing and could not sleep, Feels better however when ambulates she still gets very short of breath. Coughing up some sputum but it i difficulty exprotract patient is treated with high-dose guaifenesin 1200 mg b.i.d., prednisone 40 mg q.day and bronchodilator, repeat chest x-ray did not show any sign of pnuemonia, seen by pulmonology and further recommendation to follow, 1st set of blood culture grew Staph epididymis most likely contamination patient was treated with vancomycin discussed with ID pharmacy was stopped the the abx, and repeat blood culture collected on 04/27 no growth so far, however sputum culture is growing pseudomonas aerugniosa, discuss with ID, started patient on Levaquin, and Dr. Loya is also in agreement, will monitor patient and if there are no significant side effect, will discharge patient tomorrow on Levaquin, will monitor. (2) Chronic respiratory failure with hypoxia, on home oxygen therapy: Code(s): J96.11 - Chronic respiratory failure with hypoxia; Z99.81 - Dependence on supplemental oxygen Status: Acute (3) Multifocal pneumonia: Code(s): J18.9 - Pneumonia, unspecified organism Status: Acute Assessment and Plan: patient being treated with ceftriaxone and azithromycin, patient will be seen by electrical cad technician and further recommendation to follow. (4) Chronic obstructive pulmonary disease: Code(s): J44.9 - Chronic obstructive pulmonary disease, unspecified Status: Acute Assessment and Plan: patient with long smoking history, and chronic respiratory failure requiring BiPAP, Plan acute hypoxic on chronic respiratory failure requiring BiPAP currently on oxygen supplementation. Pulmonary following related to COPD exacerbation and multifocal pneumonia. Flu and COVID negative. CTA negative for PE. Severe emphysema new 6 mm nodule in right lower lobe needs three-month follow-up low-dose CT chest . Continue oxygen supplementation and taper as tolerated Multifocal pneumonia on ceftriaxone and azithromycin COPD with longstanding history of smoking Chest
== END 2022-05-03 18:15 | disposition home or self-care (01) | DRG 193 ==
LOC: ANHED 04-26 00:32 → ANH3MEDSUR 04-26 02:51
PROVIDERS: Internal Medicine; Internal Medicine Pulmonary Disease; Admitting Provider Internal Medicine; Emergency Provider Physician Assistant; PCP Family Medicine; Visit Provider Family Medicine
DX: J18.9 Pneumonia, unspecified organism (principal); J96.21 Acute and chronic respiratory failure with hypoxia; J44.0 Chronic obstructive pulmonary disease with (acute) lower respiratory infection; J96.11 Chronic respiratory failure with hypoxia; J44.1 Chronic obstructive pulmonary disease with (acute) exacerbation; E87.1 Hypo-osmolality and hyponatremia; B96.5 Pseudomonas (aeruginosa) (mallei) (pseudomallei) as the cause of diseases classified elsewhere; Z20.822 Contact with and (suspected) exposure to COVID-19; E04.1 Nontoxic single thyroid nodule; F41.9 Anxiety disorder, unspecified; Z99.81 Dependence on supplemental oxygen; Z85.828 Personal history of other malignant neoplasm of skin; Z87.891 Personal history of nicotine dependence; Z98.42 Cataract extraction status, left eye; Z98.41 Cataract extraction status, right eye
CPT/HCPCS: 36415; 36600; 71045; 71046; 71275; 80048; 80053; 80202; 82103; 82104; 82805; 83735; 83880; 84484; 85025; 85610; 85730; 87040; 87070; 87077; 87186; 87205; 87636; 93005; 93306; 94618; 94640; 94667; 96361; 96365; 96366; 96375; 96376; 99285; A9270; G0378; J0456; J0692; J0696; J0743; J1650; J2920; J3370; J7030; J7512; Q9967

== ENCOUNTER 2022-05-24 10:28 | Inpatient (IN) | payer MEDICARE, SELFPAY ==
[2022-05-24] VITALS (19 sets, daily range): BP systolic 114–146; BP diastolic 58–70; PULSE 71–111; RESP 16–26; TEMP 36.2–36.7; O2SAT 93–100; BMI 19.3
--- NOTE | ~2022-05-24 | XR_ITS ---
EXAMINATION: XR chest 2V DATE: 05/24/2022 12:07 INDICATION: Shortness of breath. TECHNIQUE: Frontal and lateral views of the chest were obtained. COMPARISON: Chest 2 views 05/03/2022 FINDINGS: Calcified right lung nodules and calcified right hilar and mediastinal lymph nodes are cons istent with old granulomatous disease. No pleural effusion or pneumothorax. The heart size is normal. IMPRESSION: 1. No acute cardiopulmonary disease. Reviewed, dictated and finalized at location A. M[facility] REVIEW ATTORNEY
--- NOTE | ~2022-05-24 | CT_ITS ---
CT Scan of the Chest without Contrast: Clinical Indication: Shortness of breath, lung nodules Technique: Contiguous sections were acquired throughout the chest without intravenous contrast. Dose reduction technique was used on this scan by utilizing automated exposure control and iterative recon struction technique. The dose-length product (DLP) was 146.83 mGy-cm. COMPARISON: 04/25/2022 Findings: There is no evidence of any significant mediastinal, hilar or axillary lymphadenopathy. Calcified med iastinal and right hilar lymph nodes are present. No aortic aneurysm. There are atherosclerotic calci fications of the aorta. There is no evidence of pleural or pericardial effusion. Moderate emphysema present. Stable calcified granuloma and scarring in the right upper lobe. Stable 6 mm noncalcified nodule in the superior segment right lower lobe (axial image 54). Additional right b asilar density is significantly improved, with minimal residual groundglass opacity present (axial im age 97). Left basilar pleural-based consolidation is also improved from prior exam, with smaller resi dual density present (axial image 111). Additional airspace opacities in the superior left lower lobe are also significantly decreased from prior exam. Images through the upper abdomen reveal calcified splenic granulomas. Impression: Multiple focal areas of consolidation seen on prior exam are improved/decreased on the current exam, compatible with improving pneumonia. Stable 6 mm superior segment right lower lobe pulmonary nodule. Moderate emphysema. Reviewed, dictated and finalized at [facility]. Impression: Multiple focal areas of consolidation seen on prior exam are improved/decreased on the current exam, compatible with improving pneumonia. Stable 6 mm superior segment right lower lobe pulmonary nodule. Moderate emphysema.
--- NOTE | 2022-05-24 11:23 | ECG_ITS ---
Measurements Intervals Mcdonald Rate: 80 P: 78 AK: 126 QRS: 88 QRSD: 92 T: 86 QT: 402 QTc: 464 Interpretive Statements SINUS RHYTHM ATRIAL AND VENTRICULAR PREMATURE COMPLEXES BORDERLINE T WAVE ABNORMALITY- HIGH LATERAL LEADS BORDERLINE ECG COMPARED TO ECG 04/26/2022 09:11:39 NO SIGNIFICANT CHANGES Electronically Signed On 05-24-2022 13:34:55 SIGNALS ANALYST by Floyd Allen D.O.
--- NOTE | 2022-05-24 12:00 | ED.SOB ---
HPI - SOB/Dyspnea General Chief Complaint: Shortness of Breath/Dyspnea <Jaquelin Campbell PA-C - Last Filed: 05/24/22 14:38> Stated Complaint: sob <Jaquelin Campbell PA-C - Last Filed: 05/24/22 14:38> Time Seen by Provider: 05/24/22 11:23 <Jaquelin Campbell PA-C - Last Filed: 05/24/22 14:38> Source: patient <Jaquelin Campbell PA-C - Last Filed: 05/24/22 14:38> Mode of arrival: EMS <ROYCE Romeo Last Filed: 05/24/22 14:38> Limitations: no limitations <Jaquelin Campbell PA-C - Last Filed: 05/24/22 14:38> History of Present Illness HPI Narrative: This is a 71-year-old female that presents to the emergency department for shortness of breath ongoing since this morning. Reports a sharp epigastric pain ongoing over the last couple of days. Worse with eating. She took a tums and omeprazole with little relief. Reports this morning when she woke up she noted her oxygen saturation was in the mid 80s on room air. Reports she does intermittently use oxygen at home for her COPD. She also has had a productive cough today. Was recently admitted for similar symptoms. Denies fevers or lower extremity edema. <Jaquelin Campbell PA-C - Last Filed: 05/24/22 14:38> Related Data Home Medications: Home Medications Medication Instructions Recorded Confirmed albuterol sulfate 90 mcg/actuation 1 puff inhalation Q4-6H PRN 06/07/19 05/24/22 aerosol inhaler (ProAir HFA) Shortness Of Breath bupropion HCl 150 mg tablet,12 hr 150 mg PO BID 06/07/19 05/24/22 sustained-release coenzyme Q10 200 mg capsule (Co 200 mg PO DAILY 09/20/20 05/24/22 Q-10) budesonide 160 mcg-glycopyr 9 2 inh inhalation QAM AND QPM 03/04/22 05/24/22 mcg-formot 4.8 mcg/actuation HFA inhaler ascorbate calcium (vitamin C) 500 500 mg PO DAILY 04/26/22 05/24/22 mg tablet cholecalciferol (vitamin D3) 50 2,000 unit PO DAILY 04/26/22 05/24/22 mcg (2,000 unit) capsule (Vitamin D3) Saccharomyces lainadii 250 mg 250 mg PO BID 05/24/22 05/24/22 capsule (Florastor) albuterol sulfate 2.5 mg/3 mL 2.5 mg inhalation TID 05/24/22 05/24/22 (0.083 %) solution for nebulization <Jaquelin Campbell PA-C - Last Filed: 05/24/22 14:38> Allergies/Adverse Reactions: Allergies Allergy/AdvReac Type Severity Reaction Status Date / Time ciprofloxacin [From Cipro] AdvReac Nausea Verified 05/24/22 12:28 <Jaquelin Campbell PA-C - Last Filed: 05/24/22 14:38> Review of Systems Review of Systems: CONSTITUTIONAL: Denies fever ENT: Reports congestion CARDIOVASCULAR: Reports chest/epigastric pain. Denies edema. RESPIRATORY: Reports cough and dyspnea. GASTROINTESTINAL: Denies nausea, vomiting <Jaquelin Campbell PA-C - Last Filed: 05/24/22 14:38> All systems reviewed & are unremarkable except as noted in HPI and below <Jaquelin Campbell PA-C - Last Filed: 05/24/22 14:38> [facility] Past Medical History Medical History: Medical History Chronic hyponatremia Chronic obstructive pulmonary disease Chronic respiratory failure with hypoxia, on home oxygen therapy Depression Gastroesophageal reflux disease Skin cancer Status post excision from the nose requiring plastic surgery, also removed from the arms and back Thyroid nodule Tobacco abuse <Jaquelin Campbell PA-C - Last Filed: 05/24/22 14:38> Surgical History Surgical History: Surgical History History of bilateral cataract extraction (2007) History of breast biopsy With benign pathology. History of rhinoplasty Status post hysteroscopic polypectomy <Jaquelin Campbell PA-C - Last Filed: 05/24/22 14:38> Family History Family History: Family History Father Polycythemia vera Leukemia Sibling Breast cancer Emphysema of lung Mother Emphysema of lung
[2022-05-24] MEDS: PANTOPRAZOLE SODIUM IV 40 MG VIAL IV PUSH (12:21)
[2022-05-24] MEDS: methylPREDNISolone SOD SUCC 125 MG VIAL IV PUSH (12:22)
[2022-05-24 12:32] LABS: Basophils Absolute Auto 0.1 K/mm3 (0.0-0.1); Basophils Percent Auto 0.8 % (0.2-1.2); Eosinophils Absolute Auto 0.3 K/mm3 (0-0.3); Eosinophils Percent Auto 3.5 % (0-4.4); Hematocrit 40.3 % (37.0-47.0); Hemoglobin 12.7 g/dL (12.0-15.0); Immature Granulocyte Absolute 0.02 K/mm3 (0.00-0.031); Immature Granulocyte Percent A 0.3 % (0-0.5); Lymphocytes Absolute Auto 1.43 K/mm3 (0.9-3.2); Lymphocytes Percent Auto 18.5 % (18.3-44.2); Mean Corpuscular HGB Conc 31.5 g/dl (32-36); Mean Corpuscular Hemoglobin 32.7 pg (26-34); Mean Corpuscular Volume 103.9 fl (80-100); Mean Platelet Volume 9.8 fl (7.4-10.4); Monocytes Absolute Auto 0.6 K/mm3 (0.1-0.6); Monocytes Percent Auto 7.4 % (2.6-8.5); Neutrophils Absolute Auto 5.4 K/mm3 (1.3-6.7); Neutrophils Percent Auto 69.5 % (45.5-73.1); Platelet Count Result 284 k/mm3 (150-375); Red Blood Count 3.88 M/mm3 (4.2-5.4); Red Cell Distribution Width 12.6 % (11.5-14.5); White Blood Count 7.7 K/mm3 (4.5-10.0)
[2022-05-24 12:44] LABS: Partial Thromboplastin Time 31.7 SECONDS (22.3-36.8); Prothrombin Time 12.9 Seconds (11.1-14.7)
[2022-05-24 12:46] LABS: Alanine Aminotransferase 26 U/L (6-35); Albumin Level 4.4 g/dL (3.5-5.1); Alkaline Phosphatase 54 U/L (38-126); Anion Gap 3 mmol/L (8-16); Aspartate Amino Transferase 23 U/L (14-36); Bilirubin,Total 0.5 mg/dL (0.2-1.3); Blood Urea Nitrogen 10 mg/dL (7-17); Calcium 9.5 mg/dL (8.4-10.2); Carbon Dioxide 33 mmol/L (22-30); Chloride 99 mmol/L (98-107); Estimated CRCL calculation 67 ml/min; Estimated Glomerular Filt Rate > 60; Glucose 98 mg/dL (65-110); Lipase 39 U/L (23-300); Potassium 4.1 mmol/L (3.4-5.0); Sodium 135 mmol/L (137-145)
[2022-05-24 12:58] LABS: Troponin I < 0.012 ng/mL (0.000-0.034)
[2022-05-24 13:10] LABS: Influenza A QL RT-PCR Negative (Negative); Influenza B QL RT-PCR Negative (Negative); SARS-CoV-2 RNA PCR Negative
[2022-05-24] MEDS: ALBUTEROL SULFATE NEB 2.5 MG/3 ML INH INHALATION ×3 (14:39→23:23)
[2022-05-24] MEDS: IPRATROPIUM BR 0.02% INH SOLN 0.5 MG/2.5 ML VIAL INHALATION ×3 (14:39→23:23)
--- NOTE | 2022-05-24 15:00 | PM.IMHP ---
H&P: HPI History of Present Illness Date/Time: 05/24/22 15:00 Chief Complaint: Shortness of breath. Narrative: This is a pleasant 71-year-old female former smoker with COPD and chronic respiratory failure on 2 L nasal cannula at night who presented to the emergency department via private vehicle from home for evaluation of shortness of breath. Patient provides the following history. This will be her 3rd admission to the hospital since March 04, 2022 and most recently she was discharged on 05/03/2022 after being treated for multifocal pneumonia (sputum culture with light growth of Pseudomonas, possible colonizer) and COPD exacerbation. She completed a course of levofloxacin and a prednisone taper and she seemed to feel better though ?was only back to 75%.? Shortly after finishing the steroid taper he started to feel worse an increase in wheezing and cough though she has had difficulties producing sputum. She took guaifenesin for several days but stopped taking that as she does not like to take medications and she was worried about her liver. Last night and early this morning she has a significant coughing jag and she used her albuterol nebulizer but thereafter she noticed that her SpO2 continued to drop to 84% and she came in for evaluation. In addition to the respiratory symptoms, she also endorses epigastric discomfort for the last several days. What she describes seems to be consistent with gas as she endorses bloating and belching. She took omeprazole which she does on occasion as well as Tums without benefit. She has difficulties describing the discomfort. It does not radiate and she has not noticed any significant alleviating factors. It seems to occur more with liquids. With further questioning she is adamant that she has not had difficulty swallowing. She has not had any vomiting and denies dark stools. No known history of peptic ulcers. She denies fever, chills, sweats, exertional chest pain, pleuritic pain, palpitations, orthopnea, paroxysmal nocturnal dyspnea, nausea, vomiting, and diarrhea. She reported blake ankle edema during the interview but that was not noted on exam today. On arrival to the emergency department she was afebrile with stable vital signs. Her SpO2 has been stable on her 2 L nasal cannula. Pertinent labs include a WBC count of 7.7, hemoglobin 12.7, sodium 135, carbon dioxide 33, BUN 10, creatinine 0.50, troponin less than 0.012. She tested negative for influenza and COVID. Chest x-ray showed no acute cardiopulmonary disease. EKG showed sinus rhythm with atrial and ventricular premature complexes and borderline T-wave abnormalities in the high lateral leads, unchanged compared to prior tracings. I have been asked to admit the patient in this setting for COPD exacerbation. Review of Systems Review of Systems: Twelve systems were reviewed and are negative except for as per HPI. [facility] Past Medical History Medical History Chronic hyponatremia Chronic obstructive pulmonary disease Chronic respiratory failure with hypoxia, on home oxygen therapy Depression Gastroesophageal reflux disease Skin cancer Status post excision from the nose requiring plastic surgery, also removed from the arms and back Thyroid nodule Tobacco abuse Surgical History Surgical History History of bilateral cataract extraction (2007) History of breast biopsy With benign pathology. History of rhinoplasty Status post hysteroscopic polypectomy Family History Family History Father Polycythemia vera Leukemia Sibling Breast cancer Emphysema of lung Mother Emphysema of lung Social History Social History Social History: Surrogate medical decision maker: Jonathon Von, kristen. Code statu
--- NOTE | 2022-05-24 15:54 | ADMGEN ---
This patient, Melissa Longoria, was admitted to [facility] Room 315-02. Patient/family oriented to hospital policies and general routines including ID bracelet, bed and alarms, visiting hours, pain management, procedures, bathroom and other care routines, personal items, smoking policy, room service/diet, and visiting hours. Information on how to activate the Rapid Response Team has been discussed. Patient/Family are encouraged to report perceived risks to care and to ask questions if they do not understand what they are told or what they should do.
[2022-05-24] MEDS: SIMETHICONE 80 MG TAB.CHEW PO (17:52)
[2022-05-24] MEDS: methylPREDNISolone SOD SUCC 125 MG VIAL 60 MG IV PUSH ×2 (17:53→23:13)
[2022-05-24] MEDS: CALCIUM CARBONATE (TUMS) 500 MG (200 MG ELEMENTAL) 400 MG PO (17:53)
[2022-05-24] MEDS: buPROPion HCL SR (12 HR) 150 MG TAB PO (20:56)
[2022-05-24] MEDS: BELLADONNA ALK/PHENOB ELIX 10 ML, MAG HYDROX/ALUMINUM HYD/SIMETH 30 ML, LIDOCAINE HCL 2... PO (20:57)
[2022-05-24] MEDS: guaiFENesin 12 HR 600 MG TABCR PO (23:13)
[2022-05-25] VITALS (16 sets, daily range): BP systolic 99–123; BP diastolic 52–64; PULSE 75–99; RESP 14–22; TEMP 36.1–36.6; O2SAT 93–99
[2022-05-25] MEDS: ALBUTEROL SULFATE NEB 2.5 MG/3 ML INH INHALATION ×5 (04:19→20:21)
[2022-05-25] MEDS: IPRATROPIUM BR 0.02% INH SOLN 0.5 MG/2.5 ML VIAL INHALATION ×5 (04:19→20:21)
[2022-05-25] MEDS: methylPREDNISolone SOD SUCC 125 MG VIAL 60 MG IV PUSH ×2 (06:47→12:00)
[2022-05-25] MEDS: FLUTICASONE/UMECLIDIN/VILANTER 100-62.5-25 MCG ELLIPTA 1 PUFF INHALATION (07:05)
[2022-05-25] MEDS: ASCORBIC ACID 500 MG TABLET PO (09:05)
[2022-05-25] MEDS: SACCHAROMYCES BOULARDII 250 MG CAPSULE PO ×2 (09:05→17:34)
[2022-05-25] MEDS: buPROPion HCL SR (12 HR) 150 MG TAB PO ×2 (09:05→19:59)
[2022-05-25] MEDS: guaiFENesin 12 HR 600 MG TABCR PO (09:05)
[2022-05-25] MEDS: PANTOPRAZOLE SODIUM IV 40 MG VIAL IV PUSH (09:06)
[2022-05-25] MEDS: CHOLECALCIFEROL 1,000 UNITS TABLET 2000 UNITS PO (09:06)
--- NOTE | 2022-05-25 09:14 | PM.IMPN ---
Progress Note: A&P Assessment and Plan (1) Acute and chronic respiratory failure with hypoxia: Code(s): J96.21 - Acute and chronic respiratory failure with hypoxia Status: Acute Assessment and Plan: She has a significant coughing but poor expectoration prior to admission with SpO2 drop to 84%. She normal wears 2L oxygen with ambulation and sleep, but requiring at all times upon admission. She was previously discharged with prednisone taper and oral levaquin, which she completed several weeks ago. She was admitted for COPD exacerbation and evaluation by Pulmonology. Wean O2 to keep sats>90%, continue 2L O2 with activity and sleep. D-dimer negative. CT chest without contrast ordered and pending. (2) COPD exacerbation: Code(s): J44.1 - Chronic obstructive pulmonary disease with (acute) exacerbation Status: Acute Assessment and Plan: Wheezing noted on exam. Chest x-ray shows no cardiopulmonary disease. WBC 7.7. Pulmonology consulted and appreciate recommendations- continue solumedrol 40 mg IV Q6 hours, duonebs with budesonide scheduled, empiric Levaquin and Cefepime IV. first dose levaquin given in ED 05/24/22 and Cefepime started 05/25/22. Chest CT w/o contrast pending. Mucinex 1200 mg BID Extended respiratory panel pending. (3) Gastroesophageal reflux disease: Code(s): K21.9 - Gastro-esophageal reflux disease without esophagitis Status: Acute Assessment and Plan: c/o bloating and gas stuck in epigastric region. Hgb 12.5 and stable/improved from last admission. She denies NSAID use, but has been on multiple steroid tapers in the past several months. Given GI cocktail in ED with improvement. continue protonix 40 mg IV Qday. Simethicone 80 mg QID Trend H/H and FOBT and consider GI consult if worsening anemia or positive FOBT (4) Epigastric discomfort: Code(s): R10.13 - Epigastric pain Status: Acute Assessment and Plan: As above. Secondary to GERD. Plan CODE STATUS: FULL CODE Disposition: from home. Time Spent With Patient Time: 45 minutes time spent with patient assessment, patient/family education, consultation with pulmonology regarding plan of care, review of labs, imaging, vitals and nursing documentation. Subjective Date/time seen: 05/25/22 09:14 Interval history: She states that her gas is improved after the GI cocktail and simethicone. She his having a hard time coughing up mucous. She endorses to me that after her last admission she was prescribed budesonide nebulizer and was told not to take this with her Breztri, so she stopped her Breztri. For the last week, she also reports burning sensation and worsening bloating after eating. Review of Systems Review of Systems: All systems reviewed & are unremarkable except as noted in HPI and below Exam Narrative: General: Chronically ill, nontoxic-appearing female sitting up in bed in no distress. BMI: 19.8. HEENT: Normocephalic. Pupils equal and round. Sclera anicteric. Oral mucosa moist. Oropharynx clear. Neck: Supple. No JVD. Respiratory: Respirations are nonlabored and she speaking in full sentences. Lung sounds diminished with expiratory wheezing in all drake. Cardiovascular: normal S1-S2 regular rate and rhythm without murmurs, gallops or rubs. Gastrointestinal: Abdomen is soft and nondistended with positive bowel sounds. Slightly tender to deep palpation epigastric region. No guarding or rebound tenderness. Skin: Warm and dry. No rash or lesions on limited exam. Fair complexion Extremities: No cyanosis, clubbing, or edema. Radial and pedal pulses intact. Grossly normal ROM. Neurological: Alert and oriented x3. Cranial nerves 2-12 are grossly intact. No gross focal deficits to casual conversation. Psychiatric: Pleasant and cooperative with normal mood and affect. Objective Data Vital Signs Vital Signs: Vital Signs - 24 hr 05/24/22 10:30 05/24/22 11:24 03
[2022-05-25] MEDS: SIMETHICONE 80 MG TAB.CHEW PO ×4 (09:16→19:59)
--- NOTE | 2022-05-25 11:51 | PM.PNPUL ---
Progress Note: A&P Assessment and Plan (1) COPD exacerbation: Code(s): J44.1 - Chronic obstructive pulmonary disease with (acute) exacerbation Status: Resolved Assessment and Plan: 71-year-old with a history of GOLD grade 3 group E COPD (89 PY, quit 02/2022, Alpha 1 phenotype MM), PFTs 12/12/2020 with an FEV1 of 0.74 L, 36% predicted and DLCO 35% predicted, ? Uses no oxygen at rest, 2 with ambulation and 2 L oxygen at night. ? Severe apical predominant centrilobular emphysema on the 1st CT scan in our system from 06/07/2019.? Patient had a recent COPD exacerbation required hospitalization and discharged on 05/03/2022 and was discharged on a 12 day prednisone taper and 6 days into this prednisone taper she noted worsening wheezing, shortness of breath. There is also confusion about her medications and she had stopped her breztri. Currently the patient has worsening shortness of breath, wheezing at home, worsening hypoxemia at home with minimal phlegm production. I will treat her for COPD exacerbation. she currently has bilateral expiratory wheezes. Plan: I will decrease her Solu-Medrol from 60 Q 6 to 40 Q 6, I will continue albuterol 2.5 mg nebulized q.4 hours, ipratropium 0.5 mg nebulized Q 4 hours. The patient has difficulty expectorating phlegm and history of light growth of Pseudomonas sensitive to Levaquin in the past. Repeat sputum is pending. Covid and influenza swab RT PCR studies are negative. I will send the extended respiratory pathogen panel swab to [facility]. At this time I will continue Levaquin and add cefepime. I will check a D-dimer and if the D-dimer is positive I will perform a CT angiogram of the chest to exclude pulmonary emboli and reassess her previous infiltrates. if the D-dimer is negative I would do a CT of the chest without. To help her expectorate I will increase her guaifenesin from 600 mg p.o. b.i.d. to 1200 mg p.o. b.i.d.. I will order the patient a Cornet flutter valve. Patient has home oxygen settings were room air no oxygen, 2 L with ambulation and 2 L with sleep. I have just turned her to room air and her saturations are 93% and I have spoken with the nurse and we will follow her on room air. She should have 2 L when she ambulates and 2 L when she sleeps. Regarding her GI issues the patient is on Protonix and simethicone. Discuss with Eula France, will follow with you per Subjective Date/time seen: 05/25/22 11:51 Interval history: 05/25/2022: This is a new pulmonary consult for multiple COPD exacerbations. 71-year-old with a history of GOLD grade 3 group E COPD (89 PY, quit 02/2022, Alpha 1 phenotype MM), PFTs 12/12/2020 with an FEV1 of 0.74 L, 36% predicted and DLCO 35% predicted, ? Uses no oxygen at rest, 2 with ambulation and 2 L oxygen at night. ? Severe apical predominant centrilobular emphysema on the 1st CT scan in our system from 06/07/2019.? COPD exacerbation 02/17/2022 seen in the emergency department and discharged on prednisone.? Admitted to the hospital 03/04/2022 with influenza A and COPD exacerbation treated with Tamiflu, azithromycin and steroids. ? Home O2 assessment With no oxygen at rest or with ambulation.? patient tells me she completely recovered. ? At baseline.? Patient states she is able to complete her activities of daily living without having to stop for shortness of breath.? She is rather sedentary though.? She thinks she could walk 1 city block.? She has a daily dry cough.? Patient smoked tobacco from age 12 to February 2022 at 1 and half packs per day? for 89 pack years.? Patient was exposed to secondhand smoke from both of her parents.? Patient was exposed to secondhand smoke from her significant other's until 2019.? Patient also worked in the [employer] industry.? 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 ? Patient presented to the emergency department on 0
--- NOTE | 2022-05-25 13:40 | PM.CNPUL ---
Assessment and Plan Assessment and plan (1) COPD exacerbation: Code(s): J44.1 - Chronic obstructive pulmonary disease with (acute) exacerbation Status: Acute Assessment and Plan: 71-year-old with a history of GOLD grade 3 group E COPD (89 PY, quit 02/2022, Alpha 1 phenotype MM), PFTs 12/12/2020 with an FEV1 of 0.74 L, 36% predicted and DLCO 35% predicted, ? Uses no oxygen at rest, 2 with ambulation and 2 L oxygen at night. ? Severe apical predominant centrilobular emphysema on the 1st CT scan in our system from 06/07/2019.? ? Patient had a recent COPD exacerbation required hospitalization and discharged on 05/03/2022 and was discharged on a 12 day prednisone taper and 6 days into this prednisone taper she noted worsening wheezing, shortness of breath.? There is also confusion about her medications and she had stopped her breztri. ? Currently the patient has worsening shortness of breath, wheezing at home, worsening hypoxemia at home with minimal phlegm production.? I will treat her for COPD exacerbation.? she currently has bilateral expiratory wheezes. Plan: I will decrease her Solu-Medrol from 60 Q 6 to 40 Q 6, I will continue albuterol 2.5 mg nebulized q.4 hours, ipratropium 0.5 mg nebulized Q 4 hours. ? The patient has difficulty expectorating phlegm and history of light growth of Pseudomonas sensitive to Levaquin in the past. ? Repeat sputum is pending.? Covid and influenza swab RT PCR studies are negative.? I will send the extended respiratory pathogen panel swab to [facility]. ? At this time I will continue Levaquin and add cefepime. ? I will check a D-dimer and if the D-dimer is positive I will perform a CT angiogram of the chest to exclude pulmonary emboli and? reassess her previous infiltrates.? if the D-dimer is negative I would do a CT of the chest without. ? To help her expectorate I will increase her guaifenesin from 600 mg p.o.? b.i.d. to 1200 mg p.o. b.i.d..? I will order the patient a Cornet flutter valve. ? Patient has home oxygen settings were room air no oxygen, 2 L with ambulation and 2 L with sleep.? I have just turned her to room air and her saturations are 93% and I have spoken with the nurse and we will follow her on room air.? She should have 2 L when she ambulates and 2 L when she sleeps. ? Regarding her GI issues the patient is on Protonix and simethicone. Discuss with Eula France, will follow with you. History of Present Illness History of Present Illness Consult date: 05/25/22 Chief complaint: COPD Exacerbation/Acute on Chronic Resp Failure Narrative: 05/25/2022:? This is a new pulmonary consult for multiple COPD exacerbations. 71-year-old with a history of GOLD grade 3 group E COPD (89 PY, quit 02/2022, Alpha 1 phenotype MM), PFTs 12/12/2020 with an FEV1 of 0.74 L, 36% predicted and DLCO 35% predicted, ? Uses no oxygen at rest, 2 with ambulation and 2 L oxygen at night. ? Severe apical predominant centrilobular emphysema on the 1st CT scan in our system from 06/07/2019.? COPD exacerbation 02/17/2022 seen in the emergency department?and discharged on prednisone.? Admitted to the hospital?03/04/2022 with influenza A and COPD exacerbation?treated with Tamiflu, azithromycin and steroids. ? Home O2 assessment With no oxygen at rest or with ambulation.? patient tells me she completely recovered. ? At baseline.? Patient states she is able to complete her activities of daily living without having to stop for shortness of breath.? She is rather sedentary though.? She thinks she could walk 1 city block.? She has a daily dry cough.? Patient smoked tobacco from age 12 to February 2022 at 1 and half packs per day? for 89 pack years.? Patient was exposed to secondhand smoke from both of her parents.? Patient was exposed to secondhand smoke from her significant other's until 2019.? 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 Patient denies vaping, illicit drug use, sandblasting, welding, asbestos were, professional paintin
[2022-05-25 13:55] LABS: D Dimer 0.27 ug/mL (<0.48)
[2022-05-25] MEDS: CEFEPIME 2 GM/NS 50 ML 2 GM/50 ML BAG IVPB ×2 (14:08→22:27)
[2022-05-25] MEDS: methylPREDNISolone SOD SUCC 40 MG VIAL IV PUSH (17:33)
[2022-05-25] MEDS: guaiFENesin 12 HR 600 MG TABCR 1200 MG PO (19:59)
[2022-05-25] MEDS: BUDESONIDE RESPULE NEB 0.5 MG/2 ML AMP INHALATION (20:21)
[2022-05-26] VITALS (15 sets, daily range): BP systolic 115–121; BP diastolic 51–60; PULSE 68–97; RESP 14–20; TEMP 36.1–36.4; O2SAT 93–99
[2022-05-26] MEDS: methylPREDNISolone SOD SUCC 40 MG VIAL IV PUSH ×2 (00:13→05:51)
[2022-05-26] MEDS: MELATONIN 5 MG TABLET PO (00:18)
[2022-05-26] MEDS: IPRATROPIUM BR 0.02% INH SOLN 0.5 MG/2.5 ML VIAL INHALATION ×6 (00:19→21:01)
[2022-05-26] MEDS: ALBUTEROL SULFATE NEB 2.5 MG/3 ML INH INHALATION ×6 (00:19→21:01)
--- NOTE | 2022-05-26 03:48 | PC.NURSE ---
Daylight Savings Time For Daylight Savings Time Ending in the Fall - Clocks are moved back. For Daylight Savings Time Beginning in the Spring - Clocks are moved ahead. For [facility], the time of change occurs at 0200 hrs. Time is taken from the gravity meter observer. This entry on the patient's chart recognizes the change in time reflected during documentation. Example: 2 entries for vital signs may be charted for 0200 hrs.
[2022-05-26] MEDS: CEFEPIME 2 GM/NS 50 ML 2 GM/50 ML BAG IVPB ×3 (05:51→21:32)
[2022-05-26 06:57] LABS: Hemoglobin 10.6 g/dL (12.0-15.0); Immature Granulocyte Absolute 0.05 K/mm3 (0.00-0.031); Immature Granulocyte Percent A 0.5 % (0-0.5); Lymphocytes Absolute Auto 0.63 K/mm3 (0.9-3.2); Lymphocytes Percent Auto 5.9 % (18.3-44.2); Mean Corpuscular HGB Conc 32.1 g/dl (32-36); Mean Corpuscular Hemoglobin 32.3 pg (26-34); Mean Corpuscular Volume 100.6 fl (80-100); Mean Platelet Volume 10.4 fl (7.4-10.4); Monocytes Absolute Auto 0.3 K/mm3 (0.1-0.6); Monocytes Percent Auto 2.5 % (2.6-8.5); Neutrophils Absolute Auto 9.8 K/mm3 (1.3-6.7); Neutrophils Percent Auto 91.1 % (45.5-73.1); Platelet Count Result 252 k/mm3 (150-375); Red Blood Count 3.28 M/mm3 (4.2-5.4); Red Cell Distribution Width 12.6 % (11.5-14.5); White Blood Count 10.8 K/mm3 (4.5-10.0)
[2022-05-26 07:02] LABS: Alanine Aminotransferase 21 U/L (6-35); Albumin Level 3.7 g/dL (3.5-5.1); Alkaline Phosphatase 42 U/L (38-126); Anion Gap 1 mmol/L (8-16); Aspartate Amino Transferase 18 U/L (14-36); Bilirubin,Total 0.3 mg/dL (0.2-1.3); Blood Urea Nitrogen 16 mg/dL (7-17); Carbon Dioxide 31 mmol/L (22-30); Chloride 96 mmol/L (98-107); Estimated CRCL calculation 79 ml/min; Estimated Glomerular Filt Rate > 60; Glucose 150 mg/dL (65-110); Potassium 4.1 mmol/L (3.4-5.0); Sodium 128 mmol/L (137-145)
[2022-05-26] MEDS: buPROPion HCL SR (12 HR) 150 MG TAB PO ×2 (07:49→21:32)
[2022-05-26] MEDS: CHOLECALCIFEROL 1,000 UNITS TABLET 2000 UNITS PO (07:49)
[2022-05-26] MEDS: ASCORBIC ACID 500 MG TABLET PO (07:49)
[2022-05-26] MEDS: SIMETHICONE 80 MG TAB.CHEW PO ×4 (07:49→21:31)
[2022-05-26] MEDS: SACCHAROMYCES BOULARDII 250 MG CAPSULE PO ×2 (07:50→17:43)
[2022-05-26] MEDS: PANTOPRAZOLE SODIUM IV 40 MG VIAL IV PUSH (07:50)
[2022-05-26] MEDS: guaiFENesin 12 HR 600 MG TABCR 1200 MG PO ×2 (07:50→21:32)
[2022-05-26 08:38] LABS: NT Pro B Type Natriuretic Pept 667 pg/mL (19.9-100)
[2022-05-26] MEDS: BUDESONIDE RESPULE NEB 0.5 MG/2 ML AMP INHALATION ×2 (09:04→21:01)
--- NOTE | 2022-05-26 09:50 | PM.IMPN ---
Progress Note: A&P Assessment and Plan (1) Acute and chronic respiratory failure with hypoxia: Code(s): J96.21 - Acute and chronic respiratory failure with hypoxia Status: Acute Assessment and Plan: She has a significant coughing but poor expectoration prior to admission with SpO2 drop to 84%. She normal wears 2L oxygen with ambulation and sleep, but requiring at all times upon admission. She was previously discharged with prednisone taper and oral levaquin, which she completed several weeks ago. She was admitted for COPD exacerbation and evaluation by Pulmonology. Wean O2 to keep sats>90%, continue 2L O2 with activity and sleep. D-dimer negative. CT chest without contrast pending. (2) COPD exacerbation: Code(s): J44.1 - Chronic obstructive pulmonary disease with (acute) exacerbation Status: Acute Assessment and Plan: Wheezing noted on exam. Chest x-ray shows no cardiopulmonary disease. WBC 7.7. Pulmonology consulted and appreciate recommendations- weaning solumedrol 40 mg IV Q6 hours, duonebs Q4 hours, empiric Levaquin (started 05/24/22 in ED) day 3 and Cefepime 2 grams Q8 IV (started 05/25/22) day 2. WBC 10.8 but likely secondary to systemic steroids. Chest CT w/o contrast pending. Mucinex 1200 mg BID. Extended respiratory panel pending. (3) Gastroesophageal reflux disease: Qualifiers: Esophagitis presence: without esophagitis Qualified Code(s): K21.9 - Gastro-esophageal reflux disease without esophagitis Code(s): K21.9 - Gastro-esophageal reflux disease without esophagitis Status: Acute Assessment and Plan: c/o bloating and gas stuck in epigastric region. Hgb 12.5 and stable/improved from last admission. She denies NSAID use, but has been on multiple steroid tapers in the past several months. Given GI cocktail in ED with improvement. continue protonix 40 mg IV Qday. Simethicone 80 mg QID. H/H and FOBT ordered but pending. (4) Epigastric discomfort: Code(s): R10.13 - Epigastric pain Status: Acute Assessment and Plan: As above. Secondary to GERD. Plan CODE STATUS: FULL CODE Disposition: from home. Time Spent With Patient Time: 35 minutes time spent with patient assessment, patient education, discussing with Pulmonology, review of labs, vitals and nursing documentation. All questions answered to the best of my ability. Subjective Date/time seen: 05/26/22 09:50 Her indigestion, stomach bloating and gas sensation are significantly improved. Her appetite is fair, but she does not like the food. Her breathing feels improved today, but she is still not producing much mucous. She feels a little groggy today and thinks it is from the melatonin last night. Review of Systems Review of Systems: All systems reviewed & are unremarkable except as noted in HPI and below Exam Narrative: General: nontoxic-appearing, sitting up in bed in no distress. HEENT: Pupils equal and round. Sclera anicteric. Oral mucosa moist. Neck: No JVD Respiratory: Respirations are nonlabored and she speaking in full sentences. Lung sounds diminished bilaterally. No wheezing. Cardiovascular: normal S1-S2 regular rate and rhythm without murmurs, gallops or rubs. Gastrointestinal: Abdomen is soft and nondistended with positive bowel sounds. Slightly tender to epigastric region. No guarding. Skin: Warm and dry. Fair complexion Extremities: No cyanosis, clubbing, or edema. Grossly normal ROM. Neurological: Alert and oriented x3. No gross focal deficits. Psychiatric: Pleasant and cooperative with normal mood and affect. Objective Data Vital Signs Vital Signs: Vital Signs - 24 hr 05/25/22 11:05 05/25/22 11:15 05/25/22 09:05 Temperature Pulse Rate 88 90 Respiratory Rate 18 18 Blood Pressure Pulse Oximetry 99 Oxygen Delivery Nasal Cannula Oxygen Flow Rate 2 05/25/22 09:05 05/25/22 15:05 05/25/22 15:15 Temperature
--- NOTE | 2022-05-26 10:04 | PM.PNPUL ---
Progress Note: A&P Assessment and Plan (1) COPD exacerbation: Code(s): J44.1 - Chronic obstructive pulmonary disease with (acute) exacerbation Status: Acute Assessment and Plan: 71-year-old with a history of GOLD grade 3 group E COPD (89 PY, quit 02/2022, Alpha 1 phenotype MM), PFTs 12/12/2020 with an FEV1 of 0.74 L, 36% predicted and DLCO 35% predicted, ? Uses no oxygen at rest, 2 with ambulation and 2 L oxygen at night. ? Severe apical predominant centrilobular emphysema on the 1st CT scan in our system from 06/07/2019.? ? Patient had a recent COPD exacerbation required hospitalization and discharged on 05/03/2022 and was discharged on a 12 day prednisone taper and 6 days into this prednisone taper she noted worsening wheezing, shortness of breath.? There is also confusion about her medications and she had stopped her breztri. 05/25? Currently the patient has worsening shortness of breath, wheezing at home, worsening hypoxemia at home with minimal phlegm production.? I will treat her for COPD exacerbation.? she currently has bilateral expiratory wheezes. Plan: I will decrease her Solu-Medrol from 60 Q 6 to 40 Q 6, I will continue albuterol 2.5 mg nebulized q.4 hours, ipratropium 0.5 mg nebulized Q 4 hours. ? The patient has difficulty expectorating phlegm and history of light growth of Pseudomonas sensitive to Levaquin in the past. ? Repeat sputum is pending.? Covid and influenza swab RT PCR studies are negative.? I will send the extended respiratory pathogen panel swab to [employer]. ? At this time I will continue Levaquin (started 05/24) and add cefepime. ? I will check a D-dimer and if the D-dimer is positive I will perform a CT angiogram of the chest to exclude pulmonary emboli and? reassess her previous infiltrates.? if the D-dimer is negative I would do a CT of the chest without. D Dimer negative at 0.27. ? To help her expectorate I will increase her guaifenesin from 600 mg p.o.? b.i.d. to 1200 mg p.o. b.i.d..? I will order the patient a Cornet flutter valve. ? Patient has home oxygen settings were room air no oxygen, 2 L with ambulation and 2 L with sleep.? I have just turned her to room air and her saturations are 93% and I have spoken with the nurse and we will follow her on room air.? She should have 2 L when she ambulates and 2 L when she sleeps. ? Regarding her GI issues the patient is on Protonix and simethicone. 05/26 patient said she slept well last night. She states she has 50% back to her normal. When she is sitting she is breathing normal. She still has dyspnea on exertion when walking in the room. She has a dry nonproductive cough. Her stomach fullness and gas issues have resolved. She is on 2 L nasal cannula saturations 95%. End expiratory wheezes are present but improved since yesterday. White blood cell count is 10.8, creatinine is 0.4. Plan: I will decrease her Solu-Medrol to 20 mg IV q.6, continue albuterol nebulized Q 4, continue ipratropium 0.5 mg nebulized Q 4, add budesonide 0.5 mg nebulized b.i.d., continue guaifenesin 1200 mg p.o. b.i.d. and continue Cornet flutter valve. Patient to have a CT scan of the chest to reassess her previous infiltrates. preliminary results on the sputum show growth of normal meir. extended respiratory pathogen panel is pending. Continue Levaquin, day 3 and cefepime, day 2. Discuss with Eula France, will follow with you. Subjective Date/time seen: 05/26/22 10:04 Interval history: 05/25/2022:? This is a new pulmonary consult for multiple COPD exacerbations. 71-year-old with a history of GOLD grade 3 group E COPD (89 PY, quit 02/2022, Alpha 1 phenotype MM), PFTs 12/12/2020 with an FEV1 of 0.74 L, 36% predicted and DLCO 35% predicted, ? Uses no oxygen at rest, 2 with ambulation and 2 L oxygen at night. ? Severe apical predominant centrilobular emphysema on the 1st CT scan in our system from 06/07/2019.? COPD exacerbation 02/17/2022 seen in the emergency department?an
--- NOTE | 2022-05-26 11:08 | PCPTNOTE ---
Attempted to see for PT initial evaluation, pt refused stating she just got back into bed and would like to take a nap. Will continue to follow.
[2022-05-26] MEDS: methylPREDNISolone SOD SUCC 40 MG VIAL 20 MG IV PUSH ×2 (13:34→17:43)
[2022-05-26] MEDS: CALCIUM CARBONATE (TUMS) 500 MG (200 MG ELEMENTAL) 400 MG PO (19:52)
[2022-05-26] MEDS: MELATONIN 3 MG TABLET PO (21:31)
[2022-05-27] VITALS (18 sets, daily range): BP systolic 118–139; BP diastolic 64–77; PULSE 76–108; RESP 16–20; TEMP 35.9–36.4; O2SAT 94–100
[2022-05-27] MEDS: methylPREDNISolone SOD SUCC 40 MG VIAL 20 MG IV PUSH ×5 (00:03→23:56)
[2022-05-27] MEDS: ALBUTEROL SULFATE NEB 2.5 MG/3 ML INH INHALATION ×6 (00:39→21:16)
[2022-05-27] MEDS: IPRATROPIUM BR 0.02% INH SOLN 0.5 MG/2.5 ML VIAL INHALATION ×6 (00:41→21:16)
[2022-05-27] MEDS: CEFEPIME 2 GM/NS 50 ML 2 GM/50 ML BAG IVPB ×3 (06:26→22:26)
[2022-05-27 07:22] LABS: Hematocrit 34.7 % (37.0-47.0); Hemoglobin 11.1 g/dL (12.0-15.0); Mean Corpuscular Hemoglobin 32.3 pg (26-34); Mean Corpuscular Volume 100.9 fl (80-100); Mean Platelet Volume 10.5 fl (7.4-10.4); Platelet Count Result 264 k/mm3 (150-375); Red Blood Count 3.44 M/mm3 (4.2-5.4); Red Cell Distribution Width 12.8 % (11.5-14.5); White Blood Count 10.5 K/mm3 (4.5-10.0)
[2022-05-27] MEDS: BUDESONIDE RESPULE NEB 0.5 MG/2 ML AMP INHALATION ×2 (07:32→21:15)
[2022-05-27 07:34] LABS: Anion Gap 2 mmol/L (8-16); Blood Urea Nitrogen 17 mg/dL (7-17); Calcium 8.9 mg/dL (8.4-10.2); Carbon Dioxide 34 mmol/L (22-30); Chloride 99 mmol/L (98-107); Estimated CRCL calculation 58 ml/min; Estimated Glomerular Filt Rate > 60; Glucose 97 mg/dL (65-110); Potassium 3.5 mmol/L (3.4-5.0); Sodium 135 mmol/L (137-145)
[2022-05-27] MEDS: CHOLECALCIFEROL 1,000 UNITS TABLET 2000 UNITS PO (09:12)
[2022-05-27] MEDS: buPROPion HCL SR (12 HR) 150 MG TAB PO ×2 (09:12→20:29)
[2022-05-27] MEDS: ASCORBIC ACID 500 MG TABLET PO (09:12)
[2022-05-27] MEDS: SACCHAROMYCES BOULARDII 250 MG CAPSULE PO ×2 (09:12→17:29)
[2022-05-27] MEDS: guaiFENesin 12 HR 600 MG TABCR 1200 MG PO ×2 (09:12→20:28)
[2022-05-27] MEDS: SIMETHICONE 80 MG TAB.CHEW PO ×4 (09:12→20:28)
[2022-05-27] MEDS: CALCIUM CARBONATE (TUMS) 500 MG (200 MG ELEMENTAL) 400 MG PO (09:23)
--- NOTE | 2022-05-27 13:04 | PM.IMPN ---
Progress Note: A&P Assessment and Plan (1) Acute and chronic respiratory failure with hypoxia: Code(s): J96.21 - Acute and chronic respiratory failure with hypoxia Status: Acute Assessment and Plan: C/o significant coughing but poor expectoration prior to admission with SpO2 drop to 84%. She normal wears 2L oxygen with ambulation and sleep, but requiring at all times upon admission. She was previously discharged with prednisone taper and oral levaquin, which she completed several weeks ago. Pulmonology following. Wean O2 to keep sats>90%, continue 2L O2 with activity and sleep. CT chest without contrast with improved/decreased multiple areas of consolidation, stable 6 mm superior segment, moderate emphysema. (2) COPD exacerbation: Code(s): J44.1 - Chronic obstructive pulmonary disease with (acute) exacerbation Status: Acute Assessment and Plan: Wheezing noted on exam. Chest x-ray shows no cardiopulmonary disease. WBC 7.7. Pulmonology consulted and appreciate recommendations- weaning solumedrol 40 mg IV Q6 hours, duonebs Q4 hours, empiric Levaquin (started 05/24/22 in ED) day 4 and Cefepime 2 grams Q8 IV (started 05/25/22) day 3. WBC 10.5, minimally elevated and likely secondary to systemic steroids. Chest CT w/o contrast as above. Mucinex 1200 mg BID. Extended respiratory panel pending. 05/27/22- still with diminished LS and wheezing on exam. spO2 dropped 88% on room air after coughing episode; improved with 2L O2. (3) Gastroesophageal reflux disease: Qualifiers: Esophagitis presence: without esophagitis Qualified Code(s): K21.9 - Gastro-esophageal reflux disease without esophagitis Code(s): K21.9 - Gastro-esophageal reflux disease without esophagitis Status: Acute Assessment and Plan: c/o bloating and gas stuck in epigastric region. Hgb 12.5 and stable/improved from last admission. She denies NSAID use, but has been on multiple steroid tapers in the past several months. Given GI cocktail in ED with improvement. continue protonix 40 mg IV Qday. Simethicone 80 mg QID. H/H and FOBT ordered but pending. 05/27/22 symptoms improving. H/H stable. (4) Epigastric discomfort: Code(s): R10.13 - Epigastric pain Status: Acute Assessment and Plan: As above. Secondary to GERD. Plan CODE STATUS: FULL CODE Disposition: from home. Time Spent With Patient Time with patient: 25 - 35 minutes Subjective Date/time seen: 05/27/22 13:04 She still has some intermittent wheezing and dyspnea with exertion. She was able to get up some mucous that was yellow. She still has episodes after eating where she feels the air won't go down and [her] food wants to come up. She states her spO2 dropped <88% after a coughing episode. Review of Systems Review of Systems: All systems reviewed & are unremarkable except as noted in HPI and below Gastrointestinal: Gastrointestinal: Reports constipation Exam Narrative: General: nontoxic-appearing, sitting up in bed in no distress. HEENT: Pupils equal and round. Sclera anicteric. Oral mucosa moist. Neck: No JVD Respiratory: Respirations are nonlabored and she speaking in full sentences. Lung sounds diminished bilaterally with faint end-expiratory wheezing noted throughout. Cardiovascular: normal S1-S2 regular rate and rhythm without murmurs, gallops or rubs. Gastrointestinal: Abdomen is soft and nondistended with positive bowel sounds. Slightly tender to epigastric region. No guarding. Skin: Warm and dry. Fair complexion Extremities: No cyanosis, clubbing, or edema. Grossly normal ROM. Neurological: Alert and oriented x3. No gross focal deficits. Psychiatric: Pleasant and cooperative with normal mood and affect. Objective Data Vital Signs Vital Signs: Vital Signs - 24 hr 05/26/22 13:25 05/26/22 13:35 05/26/22 16:20 Temperature Pulse Rate 68 72 87 Respiratory Rate 18 18 20 Blood Pressur
--- NOTE | 2022-05-27 13:04 | PM.PNPUL ---
Progress Note: A&P Assessment and Plan (1) COPD exacerbation: Code(s): J44.1 - Chronic obstructive pulmonary disease with (acute) exacerbation Status: Acute Assessment and Plan: 71-year-old with a history of GOLD grade 3 group E COPD (89 PY, quit 02/2022, Alpha 1 phenotype MM), PFTs 12/12/2020 with an FEV1 of 0.74 L, 36% predicted and DLCO 35% predicted, ? Uses no oxygen at rest, 2 with ambulation and 2 L oxygen at night. ? Severe apical predominant centrilobular emphysema on the 1st CT scan in our system from 06/07/2019.? ? Patient had a recent COPD exacerbation required hospitalization and discharged on 05/03/2022 and was discharged on a 12 day prednisone taper and 6 days into this prednisone taper she noted worsening wheezing, shortness of breath.? There is also confusion about her medications and she had stopped her breztri. 05/25? Currently the patient has worsening shortness of breath, wheezing at home, worsening hypoxemia at home with minimal phlegm production.? I will treat her for COPD exacerbation.? she currently has bilateral expiratory wheezes. Plan: I will decrease her Solu-Medrol from 60 Q 6 to 40 Q 6, I will continue albuterol 2.5 mg nebulized q.4 hours, ipratropium 0.5 mg nebulized Q 4 hours. ? The patient has difficulty expectorating phlegm and history of light growth of Pseudomonas sensitive to Levaquin in the past. ? Repeat sputum is pending.? Covid and influenza swab RT PCR studies are negative.? I will send the extended respiratory pathogen panel swab to [employer]. ? At this time I will continue Levaquin (started 05/24) and add cefepime. ? I will check a D-dimer and if the D-dimer is positive I will perform a CT angiogram of the chest to exclude pulmonary emboli and? reassess her previous infiltrates.? if the D-dimer is negative I would do a CT of the chest without. D Dimer negative at 0.27. ? To help her expectorate I will increase her guaifenesin from 600 mg p.o.? b.i.d. to 1200 mg p.o. b.i.d..? I will order the patient a Cornet flutter valve. ? Patient has home oxygen settings were room air no oxygen, 2 L with ambulation and 2 L with sleep.? I have just turned her to room air and her saturations are 93% and I have spoken with the nurse and we will follow her on room air.? She should have 2 L when she ambulates and 2 L when she sleeps. ? Regarding her GI issues the patient is on Protonix and simethicone. 05/26 patient said she slept well last night. She states she has 50% back to her normal. When she is sitting she is breathing normal. She still has dyspnea on exertion when walking in the room. She has a dry nonproductive cough. Her stomach fullness and gas issues have resolved. She is on 2 L nasal cannula saturations 95%. End expiratory wheezes are present but improved since yesterday. White blood cell count is 10.8, creatinine is 0.4. Plan: No discharge today, continue treatment with IV antibiotics, decrease steroids, , continue albuterol nebulized Q 4, continue ipratropium 0.5 mg nebulized Q 4, add budesonide 0.5 mg nebulized b.i.d., continue guaifenesin 1200 mg p.o. b.i.d. and continue Cornet flutter valve. Patient to have a CT scan of the chest to reassess her previous infiltrates. preliminary results on the sputum show growth of normal meir. Extended respiratory pathogen panel is pending. Continue Levaquin, day 4 and cefepime, day 3. Discuss with Eula France, will follow with you. Subjective Date/time seen: 05/27/22 13:04 Interval history: 71-year-old with a history of GOLD grade 3 group E COPD (89 PY, quit 02/2022, Alpha 1 phenotype MM), PFTs 12/12/2020 with an FEV1 of 0.74 L, 36% predicted and DLCO 35% predicted, ? Uses no oxygen at rest, 2 with ambulation and 2 L oxygen at night. ? Severe apical predominant centrilobular emphysema on the 1st CT scan in our system from 06/07/2019.? COPD exacerbation 02/17/2022 seen in the emergency department?and discharged on prednisone.? Admitted to
--- NOTE | 2022-05-27 18:18 | PC.NURSE ---
Pt is A&O4 female. Pt had IV placed by vascular access nurse today. Pt has been up independent today to the bedside commode. Pt is on 2 L of O2. Pt was weaned down to room air earlier in the day, but but did not tolerate it with movement. Pt was placed back on 2 L by therapy. Pt was weaned down to 1L again, and was tolerating well. Pt was napping and when she woke up pt checked with home pulse ox and found she was 88% and turned her oxygen back up to 2L. Pt has been on 2L ever since. Pt has been resting off and on. Pt has participated and contributed in plan of care. Pt has no complaint and expresses no needs at this time. Will continue to monitor pt.
[2022-05-27] MEDS: MELATONIN 3 MG TABLET PO (20:29)
[2022-05-27] MEDS: SENNA/DOCUSATE SODIUM TABLET 1 TAB PO (20:30)
[2022-05-28] VITALS (16 sets, daily range): BP systolic 110–143; BP diastolic 62–78; PULSE 71–97; RESP 16–28; TEMP 36.1–36.3; O2SAT 98–100
[2022-05-28] MEDS: IPRATROPIUM BR 0.02% INH SOLN 0.5 MG/2.5 ML VIAL INHALATION ×6 (00:35→20:17)
[2022-05-28] MEDS: ALBUTEROL SULFATE NEB 2.5 MG/3 ML INH INHALATION ×6 (00:35→20:17)
[2022-05-28] MEDS: methylPREDNISolone SOD SUCC 40 MG VIAL 20 MG IV PUSH ×3 (05:22→16:22)
[2022-05-28] MEDS: CEFEPIME 2 GM/NS 50 ML 2 GM/50 ML BAG IVPB ×3 (05:23→22:08)
[2022-05-28] MEDS: ASCORBIC ACID 500 MG TABLET PO (08:38)
[2022-05-28] MEDS: buPROPion HCL SR (12 HR) 150 MG TAB PO ×2 (08:38→19:59)
[2022-05-28] MEDS: SACCHAROMYCES BOULARDII 250 MG CAPSULE PO ×2 (08:38→16:22)
[2022-05-28] MEDS: CHOLECALCIFEROL 1,000 UNITS TABLET 2000 UNITS PO (08:38)
[2022-05-28] MEDS: guaiFENesin 12 HR 600 MG TABCR 1200 MG PO ×2 (08:38→19:58)
[2022-05-28] MEDS: PANTOPRAZOLE 40 MG TABLET PO (08:38)
[2022-05-28] MEDS: SIMETHICONE 80 MG TAB.CHEW PO ×4 (08:38→19:55)
[2022-05-28] MEDS: BUDESONIDE RESPULE NEB 0.5 MG/2 ML AMP INHALATION ×2 (09:22→20:17)
--- NOTE | 2022-05-28 13:27 | PM.IMPN ---
Progress Note: A&P Assessment and Plan (1) Acute and chronic respiratory failure with hypoxia: Code(s): J96.21 - Acute and chronic respiratory failure with hypoxia Status: Acute Assessment and Plan: C/o significant coughing but poor expectoration prior to admission with SpO2 drop to 84%. She normal wears 2L oxygen with ambulation and sleep, but requiring at all times upon admission. She was previously discharged with prednisone taper and oral levaquin, which she completed several weeks ago. Pulmonology following. Wean O2 to keep sats>90%, continue 2L O2 with activity and sleep. CT chest without contrast with improved/decreased multiple areas of consolidation, stable 6 mm superior segment, moderate emphysema. (2) COPD exacerbation: Code(s): J44.1 - Chronic obstructive pulmonary disease with (acute) exacerbation Status: Acute Assessment and Plan: Wheezing noted on exam. Chest x-ray shows no cardiopulmonary disease. WBC 7.7. Pulmonology consulted and appreciate recommendations- weaning solumedrol 40 mg IV Q6 hours, duonebs Q4 hours, empiric Levaquin (started 05/24/22 in ED) day 5 and Cefepime 2 grams Q8 IV (started 05/25/22) day 4. Chest CT w/o contrast as above. Mucinex 1200 mg BID. Extended respiratory panel pending. 05/27/22- still with diminished LS and wheezing on exam. spO2 dropped 88% on room air after coughing episode; improved with 2L O2. 05/28/22 Lung sounds with some improvement. Steroids and antibiotics per Pulmonology. (3) Gastroesophageal reflux disease: Qualifiers: Esophagitis presence: without esophagitis Qualified Code(s): K21.9 - Gastro-esophageal reflux disease without esophagitis Code(s): K21.9 - Gastro-esophageal reflux disease without esophagitis Status: Acute Assessment and Plan: c/o bloating and gas stuck in epigastric region. Hgb 12.5 and stable/improved from last admission. She denies NSAID use, but has been on multiple steroid tapers in the past several months. Given GI cocktail in ED with improvement. continue protonix 40 mg IV Qday. Simethicone 80 mg QID. H/H and FOBT ordered but pending. 05/27/22 symptoms improving. H/H stable. 05/28/22 Continue protonix 40 mg PO daily. Symptoms resolving. (4) Epigastric discomfort: Code(s): R10.13 - Epigastric pain Status: Acute Assessment and Plan: As above. Secondary to GERD. Plan CODE STATUS: FULL CODE Disposition: from home. Time Spent With Patient Time with patient: 15 - 25 minutes Subjective Date/time seen: 05/28/22 13:27 She reports she continues to have episodes of dyspnea and increased wheezing that comes and goes. She is no longer having issues with food coming up and air being stuck in her chest after eating or coughing. she still is not coughing up much mucus. no BM since prior to admission. Review of Systems Review of Systems: All systems reviewed & are unremarkable except as noted in HPI and below Exam Narrative: General: nontoxic-appearing, sitting up in bed in no distress. HEENT: Pupils equal and round. Sclera anicteric. Oral mucosa moist. Neck: No JVD Respiratory: Respirations are nonlabored. Lung sounds expiratory wheezing bibasilar lobes Cardiovascular: normal S1-S2 regular rate and rhythm without murmurs, gallops or rubs. Gastrointestinal: Abdomen is soft and nondistended with positive bowel sounds. Slightly tender to epigastric region. No guarding. Skin: Warm and dry. Fair complexion Extremities: No cyanosis, clubbing, or edema. Grossly normal ROM. Neurological: Alert and oriented x3. No gross focal deficits. Psychiatric: Pleasant and cooperative with normal mood and affect. Objective Data Vital Signs Vital Signs: Vital Signs - 24 hr 05/27/22 14:00 05/27/22 16:43 05/27/22 16:23 Temperature 96.8 F L Pulse Rate 81 108 H Respiratory Rate 16 20 Blood Pressure 139/64 Pulse Oximetry 97 94 Oxygen
[2022-05-28] MEDS: SENNA/DOCUSATE SODIUM TABLET 1 TAB PO (19:54)
[2022-05-28] MEDS: MELATONIN 3 MG TABLET PO (20:01)
[2022-05-29] VITALS (14 sets, daily range): BP systolic 127–134; BP diastolic 62–80; PULSE 73–88; RESP 17–20; TEMP 36.1–36.6; O2SAT 97–100
[2022-05-29] MEDS: ALBUTEROL SULFATE NEB 2.5 MG/3 ML INH INHALATION ×5 (00:15→15:53)
[2022-05-29] MEDS: IPRATROPIUM BR 0.02% INH SOLN 0.5 MG/2.5 ML VIAL INHALATION ×5 (00:16→15:53)
[2022-05-29] MEDS: methylPREDNISolone SOD SUCC 40 MG VIAL 20 MG IV PUSH ×4 (01:20→17:07)
[2022-05-29] MEDS: CEFEPIME 2 GM/NS 50 ML 2 GM/50 ML BAG IVPB ×2 (05:41→12:59)
[2022-05-29 06:53] LABS: Basophils Percent Auto 0.1 % (0.2-1.2); Hematocrit 37.2 % (37.0-47.0); Immature Granulocyte Absolute 0.03 K/mm3 (0.00-0.031); Immature Granulocyte Percent A 0.4 % (0-0.5); Lymphocytes Absolute Auto 0.79 K/mm3 (0.9-3.2); Lymphocytes Percent Auto 11.4 % (18.3-44.2); Mean Corpuscular HGB Conc 32.3 g/dl (32-36); Mean Corpuscular Hemoglobin 32.9 pg (26-34); Mean Corpuscular Volume 101.9 fl (80-100); Mean Platelet Volume 10.1 fl (7.4-10.4); Monocytes Absolute Auto 0.3 K/mm3 (0.1-0.6); Monocytes Percent Auto 3.8 % (2.6-8.5); Neutrophils Absolute Auto 5.8 K/mm3 (1.3-6.7); Neutrophils Percent Auto 84.3 % (45.5-73.1); Platelet Count Result 260 k/mm3 (150-375); Red Blood Count 3.65 M/mm3 (4.2-5.4); Red Cell Distribution Width 12.5 % (11.5-14.5); White Blood Count 6.9 K/mm3 (4.5-10.0)
[2022-05-29 07:18] LABS: Anion Gap 3 mmol/L (8-16); Blood Urea Nitrogen 11 mg/dL (7-17); Calcium 8.8 mg/dL (8.4-10.2); Carbon Dioxide 33 mmol/L (22-30); Chloride 95 mmol/L (98-107); Estimated CRCL calculation 83 ml/min; Estimated Glomerular Filt Rate > 60; Glucose 138 mg/dL (65-110); Potassium 3.7 mmol/L (3.4-5.0); Sodium 131 mmol/L (137-145)
[2022-05-29] MEDS: BUDESONIDE RESPULE NEB 0.5 MG/2 ML AMP INHALATION (08:17)
[2022-05-29] MEDS: SIMETHICONE 80 MG TAB.CHEW PO ×3 (09:16→17:07)
[2022-05-29] MEDS: ASCORBIC ACID 500 MG TABLET PO (09:17)
[2022-05-29] MEDS: CHOLECALCIFEROL 1,000 UNITS TABLET 2000 UNITS PO (09:17)
[2022-05-29] MEDS: levoFLOXacin 750 MG TABLET PO (09:17)
[2022-05-29] MEDS: guaiFENesin 12 HR 600 MG TABCR 1200 MG PO (09:17)
[2022-05-29] MEDS: buPROPion HCL SR (12 HR) 150 MG TAB PO (09:17)
[2022-05-29] MEDS: SACCHAROMYCES BOULARDII 250 MG CAPSULE PO ×2 (09:17→17:07)
[2022-05-29] MEDS: PANTOPRAZOLE 40 MG TABLET PO (09:18)
--- NOTE | 2022-05-29 13:47 | PM.PNPUL ---
Progress Note: A&P Assessment and Plan (1) COPD exacerbation: Code(s): J44.1 - Chronic obstructive pulmonary disease with (acute) exacerbation Status: Acute Assessment and Plan: 71-year-old with a history of GOLD grade 3 group E COPD (89 PY, quit 02/2022, Alpha 1 phenotype MM), PFTs 12/12/2020 with an FEV1 of 0.74 L, 36% predicted and DLCO 35% predicted, ? Uses no oxygen at rest, 2 with ambulation and 2 L oxygen at night. ? Severe apical predominant centrilobular emphysema on the 1st CT scan in our system from 06/07/2019.? ? Patient had a recent COPD exacerbation required hospitalization and discharged on 05/03/2022 and was discharged on a 12 day prednisone taper and 6 days into this prednisone taper she noted worsening wheezing, shortness of breath.? There is also confusion about her medications and she had stopped her breztri. 05/25? Currently the patient has worsening shortness of breath, wheezing at home, worsening hypoxemia at home with minimal phlegm production.? I will treat her for COPD exacerbation.? she currently has bilateral expiratory wheezes. Plan: I will decrease her Solu-Medrol from 60 Q 6 to 40 Q 6, I will continue albuterol 2.5 mg nebulized q.4 hours, ipratropium 0.5 mg nebulized Q 4 hours. ? The patient has difficulty expectorating phlegm and history of light growth of Pseudomonas sensitive to Levaquin in the past. ? Repeat sputum is pending.? Covid and influenza swab RT PCR studies are negative.? I will send the extended respiratory pathogen panel swab to [employer]. ? At this time I will continue Levaquin (started 05/24) and add cefepime. ? I will check a D-dimer and if the D-dimer is positive I will perform a CT angiogram of the chest to exclude pulmonary emboli and? reassess her previous infiltrates.? if the D-dimer is negative I would do a CT of the chest without. D Dimer negative at 0.27. ? To help her expectorate I will increase her guaifenesin from 600 mg p.o.? b.i.d. to 1200 mg p.o. b.i.d..? I will order the patient a Cornet flutter valve. ? Patient has home oxygen settings were room air no oxygen, 2 L with ambulation and 2 L with sleep.? I have just turned her to room air and her saturations are 93% and I have spoken with the nurse and we will follow her on room air.? She should have 2 L when she ambulates and 2 L when she sleeps. ? Regarding her GI issues the patient is on Protonix and simethicone. 05/26 patient said she slept well last night. She states she has 50% back to her normal. When she is sitting she is breathing normal. She still has dyspnea on exertion when walking in the room. She has a dry nonproductive cough. Her stomach fullness and gas issues have resolved. She is on 2 L nasal cannula saturations 95%. End expiratory wheezes are present but improved since yesterday. White blood cell count is 10.8, creatinine is 0.4. 05/27 No discharge today, continue treatment with IV antibiotics, decrease steroids, , continue albuterol nebulized Q 4, continue ipratropium 0.5 mg nebulized Q 4, add budesonide 0.5 mg nebulized b.i.d., continue guaifenesin 1200 mg p.o. b.i.d. and continue Cornet flutter valve. Patient to have a CT scan of the chest to reassess her previous infiltrates. preliminary results on the sputum show growth of normal meir. Extended respiratory pathogen panel is pending. Continue Levaquin, day 4 and cefepime, day 3. 05/29 Better. Long discussion, see plans below. Extended respiratory pathogen panel is negative. Discuss with Eula France, will follow with you. Plan She is stable for discharge. d/w Eula France NP Plans: 1. Prednisone taper 2. Breztri as her controller and prn albuterol; no budesonide. 3. She is starting hydroxyzine 25 Q 6 hr prn allergic symptoms' will also help with anxiety. Nasal saline, rinse mucus, the fluticasone nasal spray BID prn allergic symptoms. F/u with Dr Yan this Friday,
--- NOTE | 2022-05-29 13:58 | PM.DS ---
DS: Admitting Diagnosis Discharge Date 05/29/22 Admitting Diagnosis Acute and chronic respiratory failure with hypoxia Chronic obstructive pulmonary disease with (acute) exacerbation Epigastric pain DS: Discharge Diagnosis Discharge Diagnosis (1) Acute and chronic respiratory failure with hypoxia: Code(s): J96.21 - Acute and chronic respiratory failure with hypoxia Status: Acute Assessment and Plan: C/o significant coughing but poor expectoration prior to admission with SpO2 drop to 84%. She normally wears 2L oxygen with ambulation and sleep, but requiring at all times upon admission. She was previously discharged with prednisone taper and oral levaquin, which she completed several weeks prior to admission. Pulmonology following. Wean O2 to keep sats>90%, continue 2L O2 with activity and sleep. Patient wearing 2L O2 at all times, however, spO2 99-100% and appears more for comfort. CT chest without contrast with improved/decreased multiple areas of consolidation, stable 6 mm superior segment, moderate emphysema. (2) COPD exacerbation: Code(s): J44.1 - Chronic obstructive pulmonary disease with (acute) exacerbation Status: Acute Assessment and Plan: Wheezing noted on exam. Chest x-ray shows no cardiopulmonary disease. WBC 7.7. Pulmonology consulted and appreciate recommendations- treated with solumedrol 40mg IV Q6 hours, duonebs Q4 hours, empiric Levaquin (started 05/24/22 in ED) and Cefepime 2 grams Q8 IV (started 05/25/22) and mucinex [address] w/o contrast with improved/decreased multiple areas of consolidation, stable 6 mm superior segment and moderate emphysema. Extended respiratory panel was negative for adenovirus, RSV, influenza, parainfluenza, mycoplasma pneumo or chlamydia pneumo. Influenza A/B negative, COVID19 negative. Steroids weaned to prednisone taper at discharge - 40 mg daily x 3 days, 30 mg daily x 3 days, 20 mg daily x3 days, 10 mg daily x 3 days. Continued on Levaquin 750 mg PO daily x 4 days to complete total 10 day course. (3) Gastroesophageal reflux disease: Qualifiers: Esophagitis presence: without esophagitis Qualified Code(s): K21.9 - Gastro-esophageal reflux disease without esophagitis Code(s): K21.9 - Gastro-esophageal reflux disease without esophagitis Status: Acute Assessment and Plan: c/o bloating and gas stuck in epigastric region. Hgb 12.5 and stable/improved from last admission. She denies NSAID use, but has been on multiple steroid tapers in the past several months. Given GI cocktail in ED with improvement. Treated with protonix 40 mg IV Qday. Simethicone 80 mg QID. Transited to protonix 40 mg PO daily and continued at discharge. Symptoms resolving. (4) Epigastric discomfort: Code(s): R10.13 - Epigastric pain Status: Acute Assessment and Plan: As above. Secondary to GERD. (5) Anxiety: Code(s): F41.9 - Anxiety disorder, unspecified Status: Chronic Assessment and Plan: Patient very concerned about breathing and endorses some anxiety. Currently taking Wellbutrin Discussed Atarax PRN for anxiety and she refused at this time. She verbalized following up outpatient. DS: Summary Hospital Course Reason for hospitalization: Shortness of breath Hospital Course: Melissa Longoria is a pleasant 71-year-old female former smoker with COPD and chronic respiratory failure on 2 L nasal cannula at night who presented to the emergency department via private vehicle from home for evaluation of shortness of breath. This is her 3rd admission to the hospital since March 04, 2022 and most recently she was discharged on 05/03/2022 after being treated for multifocal pneumonia (sputum culture with light growth of Pseudomonas, possible colonizer) and COPD exacerbation. She completed a course of levofloxacin and a prednisone taper and she seemed to feel better though ?was only back to 75%.?
== END 2022-05-29 18:15 | disposition home or self-care (01) | DRG 190 ==
LOC: ANHED 14:38 → ANH3MEDSUR 15:11
PROVIDERS: Internal Medicine Pulmonary Disease; Admitting Provider Student in an Organized Health Care Education/Training Program; Emergency Provider Physician Assistant; PCP Family Medicine; Visit Provider Nurse Practitioner Family
DX: J43.2 Centrilobular emphysema (principal); J96.21 Acute and chronic respiratory failure with hypoxia; E87.1 Hypo-osmolality and hyponatremia; F32.A Depression, unspecified; F41.9 Anxiety disorder, unspecified; K21.9 Gastro-esophageal reflux disease without esophagitis; R14.2 Eructation; R10.13 Epigastric pain; Z20.822 Contact with and (suspected) exposure to COVID-19; Z87.891 Personal history of nicotine dependence; Z99.81 Dependence on supplemental oxygen; Z85.828 Personal history of other malignant neoplasm of skin; Z98.41 Cataract extraction status, right eye; Z98.42 Cataract extraction status, left eye
CPT/HCPCS: 36415; 71046; 71250; 80048; 80053; 83690; 83880; 84484; 85025; 85027; 85380; 85610; 85730; 87070; 87205; 87486; 87581; 87633; 87636; 93005; 94640; 94667; 94668; 96365; 96366; 96367; 96374; 96375; 96376; 97161; 99285; A9270; C9113; G0378; J0692; J1956; J2920; J2930; U0003

== ENCOUNTER 2022-07-08 12:20 | Outpatient (CLI) | payer MEDICARE, SELFPAY ==
--- NOTE | 2022-07-09 07:07 | WPDSIXMINUTE ---
Six Minute Walk Procedure Procedure Performed Pulmonary Stress Test (6 min walk) Six Minute Walk Six Minute Walk: This is a 6 minute walk test. The test was performed and interpreted in accordance with the 2014 ERS/ATS task force guidelines. Findings: The patient's resting room air oxygen saturation measured by pulse oximetry was 94% and heart rate was 91 bpm. Patient ambulated for 183 meters and oxygen saturation remained 88 to 95%. Heart rate at the end of the study was 91 bpm. The patient did not qualify for supplemental oxygen at rest or with ambulation. There are no prior studies for comparison.
== END 2022-07-08 12:21 | disposition home or self-care (01) ==
LOC: ANHPFT 12:22
PROVIDERS: PCP Family Medicine; Visit Provider Nurse Practitioner
DX: J44.9 Chronic obstructive pulmonary disease, unspecified (principal)
CPT/HCPCS: 94618

== ENCOUNTER 2022-09-10 14:26 | Outpatient (CLI) | payer MEDICARE, SELFPAY ==
--- NOTE | 2022-09-11 06:44 | WPDPFTINT ---
PFT Procedure Performed PFT Procedure Performed Spirometry with Pre/Post Bronchodilator Plethysmography (Lung Vol) Diffusing Cap (DLCO) Flow Vol Loop PFT Interpretation This is a pulmonary function test with pre and post-bronchodilator spirometry, plethysmography and diffusing capacity. The test was performed and results interpreted in accordance with the 2019 and 2005 ATS/ERS Task Force guidelines respectively using the Global Lung Function Initiative-2012 reference equations. Patient demonstrated good effort and cooperation. Reproducibility criteria were met. The quality of the pre bronchodilator spirometry maneuver was Grade A and post bronchodilator spirometry maneuver was Grade B. Findings: Spirometry: There is decreased maximal expiratory airflow at all lung volumes with concave expiratory flow tracing. The contour the inspiratory flow tracing is normal. The pre bronchodilator FVC is 1.31 L, 50% predicted. The pre bronchodilator FEV1 is 0.49 L, 24% predicted. The pre bronchodilator FEV1: FVC ratio is 38%. The post bronchodilator FVC is 1.41 L, representing a 7% increase. The post bronchodilator FEV1 is 0.55 L, representing a 60 mL increase which corresponds to a 12% increase. The post bronchodilator FEV1: FVC ratio is 39%. Plethysmography: The total lung capacity is 5.46 L, 116% predicted. The functional residual capacity is 4.46 L, 166% predicted. The residual volume is 3.65 L, 174% predicted. Diffusing capacity: The diffusing capacity unadjusted for hemoglobin and carboxyhemoglobin is 6.5, 33% predicted. The diffusing capacity adjusted for alveolar volume is 2.46, 56% predicted. In comparison to previous pulmonary function testing on 12/12/2020 with the post bronchodilator FVC has decreased from 2.23 L to 1.41 L. The post bronchodilator FEV1 has decreased from 0.81 L to 0.55 L. The total lung capacity is unchanged from 5.10 L to 5.46 L. Functional residual capacity has increased from 3.71 L to 4.46 L. The residual volume has increased from 2.99 L to 3.65 L. The diffusing capacity unadjusted for hemoglobin and carboxyhemoglobin is unchanged from 6.9 to 6.5. The diffusing capacity adjusted for alveolar volume is unchanged from 2.20 to 2.46. Impression: There is a very severe obstructive abnormality without significant improvement after inhaling a single dose of albuterol as the absolute increase in FEV1 was less than 200 mL. The increase in residual volume is consistent with air trapping from an obstructive abnormality. Hyperinflation is present as demonstrated by the increase in functional residual capacity and is consistent with an obstructive abnormality. The diffusing capacity unadjusted for hemoglobin and carboxyhemoglobin is severely decreased and remains moderately decreased when adjusted for alveolar volume. In comparison to previous pulmonary function testing on 12/12/2020 there has been a greater than anticipated time dependent decrease in the FVC and FEV1 with greater than anticipated time dependent increase in the functional residual capacity and residual volume with no change in the total lung capacity or diffusing capacity. Clinical correlation is recommended.
== END 2022-09-10 14:27 | disposition home or self-care (01) ==
PROVIDERS: PCP Family Medicine; Visit Provider Nurse Practitioner
DX: J44.9 Chronic obstructive pulmonary disease, unspecified (principal); R94.2 Abnormal results of pulmonary function studies
CPT/HCPCS: 94060; 94625; 94726; 94729

== ENCOUNTER 2022-11-05 09:30 | Outpatient (RCR) | payer MEDICARE, SELFPAY | END 2022-12-03 09:52 | disposition home or self-care (01) | LOC: ANHCPREHAB 09:30 | PROVIDERS: PCP Family Medicine; Visit Provider Internal Medicine Pulmonary Disease | DX: J44.9 Chronic obstructive pulmonary disease, unspecified (principal) | CPT/HCPCS: 94625 ==